=== PATIENT | female | born 2000 | race Caucasian/White ===

== ENCOUNTER 2022-03-23 09:13 | Day surgery (SDC) | payer MEDICAID, SELFPAY ==
[2022-03-23] VITALS (11 sets, daily range): BP systolic 103–157; BP diastolic 65–90; PULSE 55–87; RESP 16–18; TEMP 35.8–36.8; O2SAT 93–99; BMI 49.3
--- NOTE | 2022-03-23 09:26 | CT_ITS ---
STUDY: CT ABDOMEN AND PELVIS WITH CONTRAST REASON FOR EXAM: Female, 21 years old. RLQ abdominal pain RADIATION DOSAGE (If Supplied By Facility): CTDIvol = ( 34.97 ) mGy, DLP = ( 2038.68 ) mGycm TECHNIQUE: Transaxial images were obtained from the dome of the diaphragm to the symphysis pubis without oral contrast. IV 100mL Isovue-300 was administered. Sagittal and coronal images were reconstructed. Individualized dose optimization techniques were used for this CT. COMPARISON: None. FINDINGS: The visualized lung bases are unremarkable. The visualized portions of the heart are within normal limits. Normal liver. There is a solitary gallstone. Normal spleen. Normal pancreas. Normal bilateral adrenal glands. Normal right kidney. Normal left kidney. There is a small hiatal hernia. Normal small intestine. Normal colon. There is a tubular, thick-walled appendix (>7mm), consistent with acute appendicitis. Normal abdominal aorta. Normal inferior vena cava. Normal retroperitoneum. Normal urinary bladder. There is a small umbilical hernia containing fat. Normal osseous structures. CT/Abdomen/Pelvis W IV Cont ONLY IMPRESSION: Thickened appendix with increased markings in the surrounding peritoneal fat in keeping with acute noncomplicated appendicitis. Small solitary gallstone. Small umbilical hernia. Electronically Signed: Margarito Blanco MD at 11:22 EST ,
--- NOTE | 2022-03-23 09:27 | EDS_ITS ---
HPI HPI - GI History of Present Illness Chief Complaint: Abd Pain Narrative Narrative: 20-year-old female presenting with right lower quadrant abdominal pain and periumbilical abdominal pain which started this morning at about 2 AM. She has had some nausea but has not vomited. She also admits to some diarrhea. She has not had a fever. Denies urinary complaints or vaginal complaints. No history of kidney stones or ovarian cysts. She states the pain is increasing and describes it as a sharp/achy pain. Patient was seen in urgent care and referred to the ER for concern for appendicitis. Patient reports no abdominal surgeries previously. She reports no medication allergies.. She has low suspicion for as she is on the Depo-Provera shot. PFSH PFSH Medical History no medical history Home Medications NK 03/23/22 [History Last Taken Unknown] Allergy/AdvReac Type Severity Reaction Status Date / Time No Known Allergies Allergy Verified 03/23/22 09:13 Surgical History no surgical history Social History Smoking Status: Never smoker ROS ROS ED Constitutional Constitutional ED: Denies chills, fever(s) or sweats Eyes Eyes: Denies blurry vision or change in vision ENT ENT ED: Denies ear pain or sore throat Cardiovascular Cardiovascular: Denies chest pain, palpitations or racing heartbeat Respiratory/Chest Respiratory/Chest: Denies cough, dyspnea or sputum Gastrointestinal Gastrointestinal: Reports abdominal pain, diarrhea and nausea; Denies constipation or vomiting Genitourinary Genitourinary ED: Denies dysuria, hematuria or urinary frequency Musculoskeletal Musculoskeletal: Denies arthralgias, myalgias or neck pain Integumentary Denies abscess, Abrasions or rash Neurologic Neurologic: Denies headache(s), paresthesias or weakness Psychiatric Psychiatric: Denies anxiety, depression, suicidal ideation or suicidal thoughts Endocrine Endocrinology: Denies polydipsia or polyuria EXAM Physical Exam Const Vital Signs: 03/23/22 09:14 03/23/22 11:24 Temperature 96.5 F L Temperature Source Temporal Pulse Rate 74 84 Respiratory Rate 18 18 Blood Pressure 129/77 H 126/80 H Blood Pressure Mean 94 95 Pulse Ox 99 99 Oxygen Delivery Method Room Air Positive well nourished General Appearance ED: NAD; Negative for pallor HEENT Reports moist mucous membranes normocephalic Eyes PERRL and EOMs intact bilaterally General Eye ED: Negative for pale conjunctiva or scleral icterus Neck no lymphadenopathy Resp normal respiratory effort and clear to auscultation bilaterally Effort and Inspection: Negative for respiratory distress Cardio regular rate and regular rhythm GI Palpation: tender RLQ and Rovsing's sign Back/Spine no CVA tenderness Neuro CN's II-XII intact bilaterally Sensorium / Orientation: alert, oriented to person, oriented to place and oriented to time Motor Exam: strength 5/5 throughout Psych mental status grossly normal Skin no wounds General Skin Exam: Negative for jaundice or pallor MDM MDM MDM Narrative Medical decision making narrative: Patient seen and evaluated on arrival. Vital signs are stable and she is afebrile. She states has had worsening periumbilical and right lower quadrant pain since about 2 AM this morning. She is nauseous without vomiting. Patient reports she was at the urgent care prior to coming to the emergency room. On arrival she does have McBurney point tenderness. She also has a Rovsing. A line was established and patient was given morphine 4 mg and Zofran 4 mg. CBC was obtained to assess white blood cell count and differential. This does show a leukocytosis of 13.4. There is also a slight left shift. Platelets normal at 328. Hemoglobin is normal at 12.1. CMP was obtained to assess liver function, renal function, electrolytes. These all appear to be normal. Urinalysis obtained to assess for occult blood or infection is negative for any other. Urine test is also negative l. Given concern for appendicitis CT of the abdomen pelvis was ordered with IV contrast which shows acute uncomplicated appendicitis. On reevaluation the patient is still complaining of pain and she was given 0.5 mg of Dilaudid and she was given a liter of normal saline. Patient kept NPO. Patient was discussed with Dr. Solomon who is on-call for general surgery. Patient transported to the OR in stable condition. Impression: 1. Acute appendicitis 2. Nausea 3. Leukocytosis Lab Data Attestation: I reviewed the patient's lab results. Labs: Laboratory Results - last 24 hr 03/23/22 03/23/22 03/23/22 09:20 09:20 10:00 WBC 13.4 H RBC 4.51 Hgb 12.1 Hct 39.5 MCV 87.6 MCH 26.8 L MCHC 30.6 L RDW Std Deviation 47.4 H RDW Coeff of Mckayla 14.7 H Plt Count 328 MPV 10.0 Immature Gran % (Auto) 0.500 Neut % (Auto) 79.0 H Lymph % (Auto) 12.6 L [place] % (Auto) 6.4 Eos % (Auto) 1.0 Baso % (Auto) 0.5 Absolute Neuts (auto) 10.6 H Absolute Lymphs (auto) 1.70 Nucleated RBC % 0 Sodium 139 Potassium 4.2 Chloride 108 H Carbon Dioxide 25.0 Anion Gap 6 BUN 12 Creatinine 0.67 Estim Creat Clear Calc 126.99 Est GFR (MDRD) Af Amer 140 Est GFR (MDRD) Non-Af 115 BUN/Creatinine Ratio 17.9 Glucose 105 Calcium 8.4 L Total Bilirubin 0.50 AST 23 ALT 24 Alkaline Phosphatase 66 Total Protein 7.1 Albumin 3.4 Globulin 3.7 Albumin/Globulin Ratio 0.9 Urine Color Yellow Urine Clarity Sl. Cloudy Urine pH 6.0 Ur Specific [place] 1.020 Urine Protein Negative Urine Glucose (UA) Normal Urine Ketones Negative Urine Occult Blood Negative Urine Nitrite Negative Urine Bilirubin Negative Urine Urobilinogen Normal Ur Leukocyte Esterase Negative Urine RBC 0 SEEN Urine WBC 0 SEEN Ur Squamous Epith Cells 0-5 SEEN Urine Bacteria 0 SEEN Urine Mucus 0 SEEN Urine Test Negative Radiography Diagnostic Testing: Clinical Impression(s) from Imaging Studies Abdomen/Pelvis CT 03/23/22 09:26 IMPRESSION: Thickened appendix with increased markings in the surrounding peritoneal fat in keeping with acute noncomplicated appendicitis. Small solitary gallstone. Small umbilical hernia. Electronically Signed: Margarito Blanco MD at 11:22 EST , Discharge Plan Triage Chief Complaint: Abd Pain ED Provider: Jason Molina Dx/Rx/DC Orders Prescriptions: No Action NK Primary Care Provider: Care Physician,No Primary Referrals: Care Physician,No Primary [Primary Care Provider] -
[2022-03-23] MEDS: Ondansetron 4 MG/2 ML Vial IV (09:38)
[2022-03-23] MEDS: Morphine 4 MG/ML Syringe IV (09:39)
[2022-03-23 09:46] LABS: Absolute Neutrophil Count 10.6 X10^3/uL (2.0-7.7); Basophil# 0.07 X10^3/uL; Basophil% 0.5 % (0-1); Eosinophil# 0.13 X10^3/uL; Hematocrit 39.5 % (37-47); Hemoglobin 12.1 g/dL (12.0-15.0); Lymphocyte % 12.6 % (19-41); Mean Corp Hgb Conc 30.6 g/dL (32-36); Mean Corpuscular Hgb 26.8 pg (27.0-32.0); Mean Corpuscular Volume 87.6 fL (81-99); Monocyte# 0.86 X10^3/uL; Monocyte% 6.4 % (0-10); NRBC Flagged by Analyzer 0 % (0-5); Neutrophil # 10.61 X10^3/uL (2.7-7.7); Platelet Count 328 K/mm3 (150-450); RBC Distribution Width CV 14.7 % (11.6-14.6); RBC Distribution Width SD 47.4 fl (35.1-43.9); Red Blood Count 4.51 M/mm3 (4.2-5.4); White Blood Count 13.4 K/mm3 (4.4-11.0)
[2022-03-23 09:59] LABS: ALB/GLOB Ratio 0.9 RATIO (0.9-2.4); AST(SGOT) 23 U/L (15-37); Alanine Aminotransfer ALT/SGPT 24 U/L (13-56); Albumin, Serum 3.4 g/dL (3.2-5.0); Alkaline Phosphatase 66 U/L (45-117); Anion Gap 6 (5-15); BUN 12 mg/dL (7-18); BUN/Creat Ratio 17.9 RATIO (10-20); Calcium,Total 8.4 mg/dL (8.5-10.1); Chloride 108 mmol/L (98-107); Creatinine, Serum 0.67 mg/dL (0.55-1.02); EST Glomerular Filtration Rate 115 mL/min (>60); Est Glom Filt Rate - Afr Amer 140 mL/min (>60); Estimated Creatinine Clearance 126.99 ml/min; Globulin 3.7 g/dL (2.2-4.2); Glucose 105 mg/dL (74-106); Potassium 4.2 mmol/L (3.5-5.1); Protein, Total 7.1 g/dL (6.4-8.2); Sodium Level 139 mmol/L (136-145)
[2022-03-23 10:07] LABS: Bacteria 0 SEEN /hpf (None Seen); Mucous, Urine 0 SEEN /hpf (<or=2+); Red Blood Cells-Urine 0 SEEN /hpf (0-5); White Blood Cells 0 SEEN /hpf (0-5)
[2022-03-23 10:22] LABS: Color, Urine Yellow (Yellow); Glucose, Dipstick Normal (Normal); Ketone-Dipstick Negative (Negative); Leukocyte Esterase-Dipstick Negative /ul (Negative); Nitrite-Dipstick Negative (Negative); Occult Blood-Urine Negative /ul (Negative); Protein-Dipstick Negative (Negative); Urine Bilirubin Dipstick Negative (Negative); Urine Clarity Sl. Cloudy (Clear); Urine Urobilinogen Normal (Normal)
[2022-03-23 10:33] LABS: Internal QC Validated? YES +Cl - CLEAR BKGD; Pregnancy, Urine Negative Negative; Squamous Epithelial Cells - UA 0-5 SEEN /hpf (5-10)
[2022-03-23] MEDS: 0.9% Normal Saline 1,000 ML 999 ML IV (12:01)
[2022-03-23] MEDS: HYDROmorphone 0.5 MG/0.5 ML SYRINGE IV (12:01)
--- NOTE | 2022-03-23 12:51 | EX.PCM.CON.S ---
Assessment & Plan Assessment/Plan (1) Acute appendicitis: PLAN: Did discuss the anatomy and procedure: laparoscopic appendectomy, possible open with the patient. Including risks, but not limited to, bleeding, infection (superficial or intraabdominal), injury to another organ (small bowel, colon, ureter, etc.) requiring additional procedures, and blood clots. Also, discussed the pre-op, colon prep and antibiotics. All questions were answered. HPI Consult Data Date of Consult: 03/23/22 HPI Narrative HPI Narrative: JUSTINO PATTERSON, is a 21 F who presenting with right lower quadrant abdominal pain and periumbilical abdominal pain which started this morning at about 2 AM.? She has had some nausea but has not vomited.? She also admits to some diarrhea.? She has not had a fever.? Denies urinary complaints or vaginal complaints.? No history of kidney stones or ovarian cysts.? She states the pain is increasing and describes it as a sharp/achy pain.? Patient was seen in urgent care and referred to the ER for concern for appendicitis.? Patient reports no abdominal surgeries previously.? She reports no medication allergies..? She has low suspicion for as she is on the Depo-Provera shot. CT scan of the abdomen did show acute appendicitis. [facility] Medical History ADHD Post depression Medical History no medical history Home Medications NK 03/23/22 [History Last Taken Unknown] Allergy/AdvReac Type Severity Reaction Status Date / Time No Known Allergies Allergy Verified 03/23/22 09:13 Surgical History History of tonsillectomy Surgical History no surgical history Social History Smoking Status: Never smoker ROS ENT HEENT: Denies abnormal hearing Cardiovascular Cardiovascular: Denies chest pain Respiratory/Chest Respiratory/Chest: Denies cough or dyspnea Gastrointestinal Gastrointestinal: Reports abdominal pain Physical Exam Const alert, oriented x3 and no apparent distress HEENT normocephalic and head/scalp atraumatic Eyes PERRL and EOMs intact bilaterally Resp clear to auscultation bilaterally Cardio Rate: regular rate Rhythm: regular rhythm GI soft to palpation Palpation: tender RLQ and McBurney's point; Negative for guarding Lab / Micro Data Result Diagrams: 03/23/22 09:20 03/23/22 09:20 Labs: Laboratory Results - last 24 hr 03/23/22 09:20: WBC 13.4 H, RBC 4.51, Hgb 12.1, Hct 39.5, MCV 87.6, MCH 26.8 L, MCHC 30.6 L, RDW Std Deviation 47.4 H, RDW Coeff of Mckayla 14.7 H, Plt Count 328, MPV 10.0, Immature Gran % (Auto) 0.500, Neut % (Auto) 79.0 H, Lymph % (Auto) 12.6 L, [place] % (Auto) 6.4, Eos % (Auto) 1.0, Baso % (Auto) 0.5, Absolute Neuts (auto) 10.6 H, Absolute Lymphs (auto) 1.70, Nucleated RBC % 0 03/23/22 09:20: Sodium 139, Potassium 4.2, Chloride 108 H, Carbon Dioxide 25.0, Anion Gap 6, BUN 12, Creatinine 0.67, Estim Creat Clear Calc 126.99, Est GFR (MDRD) Af Amer 140, Est GFR (MDRD) Non-Af 115, BUN/Creatinine Ratio 17.9, Glucose 105, Calcium 8.4 L, Total Bilirubin 0.50, AST 23, ALT 24, Alkaline Phosphatase 66, Total Protein 7.1, Albumin 3.4, Globulin 3.7, Albumin/Globulin Ratio 0.9 03/23/22 10:00: Urine Color Yellow, Urine Clarity Sl. Cloudy, Urine pH 6.0, Ur Specific [place] 1.020, Urine Protein Negative, Urine Glucose (UA) Normal, Urine Ketones Negative, Urine Occult Blood Negative, Urine Nitrite Negative, Urine Bilirubin Negative, Urine Urobilinogen Normal, Ur Leukocyte Esterase Negative, Urine RBC 0 SEEN, Urine WBC 0 SEEN, Ur Squamous Epith Cells 0-5 SEEN, Urine Bacteria 0 SEEN, Urine Mucus 0 SEEN, Urine Test Negative Radiology Impression Abdomen/Pelvis CT 03/23/22 09:26 IMPRESSION: Thickened appendix with increased markings in the surrounding peritoneal fat in keeping with acute noncomplicated appendicitis. Small solitary gallstone. Small umbilical hernia. Electronically Signed: Margarito Blanco MD at 11:22 EST ,
--- NOTE | 2022-03-23 13:00 | APP_PTH ---
PATIENT: JUSTINO PATTERSON LOC: [facility] – [place] U#:[id number] AGE/SX: ROOM: RE03/23/[address]: Dr. Saurabh Solomon MD : 2000 BED: DIS: 03/23/2022 SPEC #: [id number] RECD: 03/23/22 14:25 STATUS: ERIN BLAKE #: [id number] VALERIA: 03/23/22 13:[address]: Saurabh Solomon DEPT: SURGICAL PATHOLOGY RECD BY: Mary Alcantara ENTERED: 03/24/22 10:04 SP TYPE: APPENDIX OT DR: No Primary Care Phys Tissues: Appendix, NOS Procedures: Surgery Specimen Level III HEADER OPERATION: Laparoscopic appendectomy PRE-OP DIAGNOSIS: Acute appendicitis TISSUE SUBMITTED: Appendix MICROSCOPIC DIAGNOSIS Appendix, appendectomy: Acute appendicitis. Acute serositis. AM:haim 03/25/2022 MICROSCOPIC DESCRIPTION Slides are reviewed. GROSS DESCRIPTION Received in fixative is one container labeled with the patient's name and designated appendix. The specimen consists of an appendix measuring 7.5 cm in length and up to 1 cm in diameter. The attached periappendiceal adipose tissue measures up to 3.5 cm in width. No obvious perforation is identified. The serosal surface is focally covered with galvez, purulent exudate. The mucosa is focally congested. No fecalith is identified. Corporate Development Officer sections are submitted in two cassettes. / SJ:haim 03/24/2022 TC:2 CPT: 47384
--- NOTE | 2022-03-23 13:40 | PCM.OPRPT ---
Problems Associated Problem List Diagnoses (1) Acute appendicitis: Report of Operation Date of Procedure: 03/23/22 Pre-Operative Diagnosis: Acute appendicitis Post-Operative Diagnosis: Same Surgery/Procedure Performed:: Laparoscopic appendectomy Surgeon: Saurabh Solomon interior plant caretaker: Giovani Medina Type of Anesthesia: General Anesthesiologist: Omi Hardin Specimen's removed: Appendix Drains: None Description of Procedure: Patient was brought into the operating room. Placed in the supine position. Under excellent general anesthetic the abdomen was sterilely prepped and draped in usual fashion. Local was injected infraumbilically. Dissection was carried down to the fascia. Fascia was grasped with a [place]. Varies needle was placed inside the abdomen. The abdomen was insufflated to 15 torr. A 10/12 trocar was placed without difficulty. Patient was placed in the headdown and rotated to the left position suprapubic #5 trocar was placed in the left lower quadrant #5 trochars placed both of these under direct visualization without injury to underlying structures. Patient was noted to have acute appendicitis the tip of the appendix was in the right lower quadrant attached to the abdominal wall this came down easily I came down the mesoappendix with the Enseal. I then transected the base of the appendix with a 45 linear cutter. I had excellent hemostasis. Placed the specimen in a specimen bag delivered through the umbilical port without difficulty. There was no pus in the abdomen I ran the small bowel looking for a Meckel's diverticulum I did not see any I remove the trochars under direct visualization good with stasis was noted. I closed the fascia the umbilical port with a [id number] stitch of 0 Vicryl. More local was injected into the fascia. Skin incisions were closed with subcuticular stitches of 4-0 Monocryl. Steri-Strips were applied. Sterile dressings were applied. Patient tolerated the procedure well. Admit VTE Documentation VTE Present on Admission: No VTE Mechan Device Prophylaxis: SCD's VTE Pharm Prophylaxis ordered?: No Reason prophylaxis not ordered:: Treatment Not Indicated
[2022-03-23] MEDS: Bupivacaine Mpf 0.5% 30 ML VIAL (13:45)
--- NOTE | 2022-03-23 13:46 | DCINST_ITS ---
Discharge Instructions Procedure Appendectomy Diet Discharge Diet: Light diet - advance as tolerated (if you have questions about your diet instructions, please talk to you doctor.) Activity Discharge Activity: May Not Drive (for 3-5 days or while taking narcotic pain meds.) May shower in (days): 1 Dressing / Incision Call your doctor if your incision/area has: Continuous Slow Oozing, Sudden Increased Bleeding, Increased Pain/ Swelling, Increased Redness and Foul Smelling Discharge Call your doctor if you observe: Fever of 101 or Higher Suture Line Care: Avoid Pulling/Pushing and Avoid Pinching/Bending Additional Dressing/Incision Instructions:: Keep dressing clean and dry. Change or remove dressing in 2 days. Leave steri strips for 1 week. May protect with a gauze bandaid. Follow Up Care Please Follow Up With: Radha Hilario PA-C When: Call office to schedule an appointment to be seen in 1 week. Test Results: Test results from this visit will be discussed in further detail at your follow- up appointment, if applicable. Discharge Plan Admission Attending Provider: Saurabh Solomon Primary Care Provider: Care Physician,Brenda Primary Discharge Orders/Prescriptions Prescriptions: New oxycodone-acetaminophen [Endocet] 5-325 mg tablet 1 tab PO Q4H PRN (Reason: pain) 5 Days Qty: 20 0RF Referrals / Follow Up: Care Physician,Brenda Primary [Primary Care Provider] - Radha Hilario PA-C [Med Staff - [facility]] - Disposition Disposition (needs filled in before D/C Order can be placed): Home, Self Care
--- NOTE | 2022-03-23 16:10 | SUR.PHASEII ---
PT VOIDED WITH OUT ISSUES.
--- NOTE | 2022-03-23 16:14 | SUR.PHASEII ---
Paged Dr. Solomon to ask how long pt needs to be off work and if she can have a pain pill.
--- NOTE | 2022-03-23 16:38 | SUR.PHASEII ---
order given by dr. lambert for oxyir 10 mg x1 dose. pt to be off work until follow up.
[2022-03-23] MEDS: oxyCODONE 5 MG Tablet 10 MG PO (16:45)
== END 2022-03-23 17:35 | disposition home or self-care (01) ==
LOC: ED 12:07 → SDC 12:23 → ACINP 12:24 → AC 12:45
PROVIDERS: Emergency Provider Student in an Organized Health Care Education/Training Program; Visit Provider Surgery
PROC: 0DTJ4ZZ Resection of Appendix, Percutaneous Endoscopic Approach (ICD-10-PCS; CPT 44970; principal; 2022-03-23 12:40)
DX: K35.80 Unspecified acute appendicitis (principal); R19.7 Diarrhea, unspecified; R10.33 Periumbilical pain
CPT/HCPCS: 44970; 00840; 74177; 80053; 81001; 81025; 85025; 88304; 99283; J7030; Q9967; A4216; C1760; J2405

== ENCOUNTER 2025-02-01 12:06 | Emergency (ER) | payer MEDICAID, SELFPAY ==
[2025-02-01 12:07] VITALS: BP 135/101; PULSE 97; RESP 22; TEMP 37.1; O2SAT 100; BMI 49.1
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
--- OUTSIDE RECORDS SUMMARY | 2025-02-01 12:51 | XMS RPT_ITS | CCD ---
Author Organization [facility] Care Team Providers Care Cryptological Technician Name Role Phone Eugene Pires Primary Care Provider Unavailab le PHYSICIAN, NONE Primary Care Physician Unavailab SINGH Gutierrez Attending Unavailable PHYSICIAN, NONE Primary Care Unavailable JUAN RAMON BRADY Attending Unavailable PHYSICIAN, NONE Primary Care Unavailable Unavailable Primary Care Provider UnavailSaurabh Sandra Attending Unavailable Care Physician, No Primary Primary Care Unava ilable Eugene Pires DO Primary Care Provider Unavai Cassandra Perez DO Unavailable Aria Smith APRN, CNP Unavailable ARIA MOON Attending Unavailable CASSANDRA VOSS Attending Unavailable EUGENE PIRES Primary Care Unavailable CASSANDRA VOSS Attending Unavailable EUGENE PIRES Referring Unavailable EUGENE PIRES Primary Care Unavailable SARA LANDON Attending Unavail able SILVA CASTILLO Referring Unavailab EUGENE Gonzales Primary Care Unavailable Medications Current Medications Medication Drug Class(es) Dates Sig (Normalized) Sig (Original) acetaminophen 325 mg oral tablet (2 sources) Start: 12-11-2020 acetaminophen (TYLENOL) tablet 650 mg acetaminophen 325 mg / oxyCODONE hydrochloride 5 mg oral tablet (1 source) Opioid Agonist Start: 03-23-2022 take 1 tablet by mouth every four hours Oxycodone-Acetaminop hen (Endocet) 5-325 mg tablet Active 1 TABLET PO Q4H 20 March 23, 2022 amoxicillin 875 mg / clavulanate 125 mg oral tablet (1 source) Penicillin-class Antibacterial Start: 02-18-2022 End: 02-25-2022 take 1 tablet by mouth every twelve hours amoxicillin-clavulan ate 875 mg-125 mg oral tablet 1 tab(s), Oral, q12h, X 7 day(s), # 14 tab(s), 0 Refill(s), 02/25/22 0:07:00 EST, Viral pharyngitis, 135.9 Start Date: 02/18/22 Stop Date: 02/25/22 Status: Ordered benzethonium chloride 2 mg/ml / benzocaine 200 mg/ml topical spray (1 source) Standardized Chemical Allergen Start: 12-11-2020 benzocaine-benzethon ium (DERMOPLAST) 20-0.2 % spray 1 ml diphenhydrAMINE hydrochloride 50 mg/ml cartridge (2 sources) Histamine-1 Receptor Antagonist Start: 12-13-2020 diphenhydrAMINE (BENADRYL) injection 25 mg Start: 12-13-2020 diphenhydrAMIN E (BENADRYL) injection 12.5 mg docusate sodium 100 mg oral capsule (1 source) Start: 12-13-2020 docusate sodium (COLACE) capsule 100 mg ferrous sulfate 325 mg oral tablet (1 source) Start: 12-13-2020 ferrous sulfate (IRON 325) tablet 325 mg HYDROmorphone (DILAUDID) injection 0.25 mg (1 source) Start: 12-13-2020 HYDROmorphone (DILAUDID) injection 0.25 mg ibuprofen 600 mg oral tablet (6 sources) Nonsteroidal Anti-inflammatory Drug Start: 11-12-2018 End: 12-16-2020 take 1 tablet by mouth every six hours as needed for pain ibuprofen (ADVIL;MOTRIN) 600 MG tablet Take 1 tablet by mouth every 6 hours as needed for Pain 120 tablet 3 12/16/2020 Active lanolin 1000 mg/ml topical cream (1 source) Start: 12-13-2020 lansinoh lanolin ointment lisdexamfetamine dimesylate 30 mg oral capsule (3 sources) Central Nervous System Stimulant Start: 03-26-2018 take 1 capsule by mouth once daily in the morning lisdexamfetamine (VYVANSE) 30 MG capsule Indications: Attention deficit hyperactivity disorder (ADHD), unspecified ADHD type Take 1 capsule by mouth every morning for 30 days.. Earliest Fill Date: 03/26/18 30 capsule 0 03/26/2018 Active 1 ml nalbuphine hydrochloride 10 mg/ml injection (1 source) Opioid Agonist/Antagonis t Start: 12-13-2020 nalbuphine (NUBAIN) injection 5 mg 1 ml naloxone hydrochloride 0.4 mg/ml injection (1 source) Opioid Antagonist Start: 12-13-2020 naloxone (NARCAN) injection 0.4 mg 2 ml ondansetron 2 mg/ml injection (2 sources) Serotonin-3 Receptor Antagonist Start: 12-11-2020 ondansetron (ZOFRAN) injection 4 mg oxyCODONE hydrochloride 5 mg oral tablet (2 sources) Opioid Agonist Start: 12-16-2020 End: 12-23-2020 take 1 tablet by mouth every six hours as needed for pain oxyCODONE (ROXICODONE) 5 MG immediate release tablet Indications: S/P section Take 1 tablet by mouth every 6 hours as needed for Pain for up to 7 days. 20 tablet 0 12/16/2020 12/23/2020 Active Start: 12-13-2020 oxyCODONE (GIFTY ICODONE) immediate release tablet 5 mg oxytocin (PITOCIN) 10 unit b olus from the bag (2 sources) Start: 12-13-2020 oxytocin (JERZY STERLING) 10 unit bolus from the bag Start: 12-13-2020 oxytocin (JERZY STERLING) 10 unit bolus from the bag oxytocin (PITOCIN) 30 units in 500 mL infusion (1 source) Start: 12-11-2020 oxytocin (JERZY STERLING) 30 units in 500 mL infusion vitamin 27-1 MG tab let 1 tablet (1 source) Start: 12-13-2020 vitam in 27-1 MG tablet 1 tablet simethicone 80 mg chewable tablet (1 source) Start: 12-13-2020 simethicone (M YLICON) chewable tablet 80 mg Completed/Discontinued Medications Medication Drug Class(es) Dates Sig (Normalized) Sig (Original) calcium chloride 0.0014 meq/ml / potassium chloride 0.004 meq/ml / sodium chloride 0.103 meq/ml / sodium lactate 0.028 meq/ml injectable solution (4 sources) Start: 12-11-2020 End: 12-14-2020 lactated ringers infusion cefOXitin (MEFOXIN) 3,000 mg in dextrose 5 % 50 mL IVPB (1 source) Start: 12-13-2020 End: 12-13-2020 cefOXitin (MEFOXIN) 3,000 mg in dextrose 5 % 50 mL IVPB citric acid 66.8 mg/ml / sodium citrate 100 mg/ml oral solution (1 source) Calculi Dissolution Agent, Anti-coagulant Start: 12-13-2020 End: 12-13-2020 citric acid-sodium citrate (BICITRA) solution 30 mL Start: 12-13-2020 End: 12-13-2020 citric acid-sodium citrate ( BICITRA) solution 30 mL ethinyl estradiol 0.035 mg / norgestimate 0.25 mg oral tablet (3 sources) Progestin, Estrogen Start: 07-06-2017 End: 12-16-2020 take 1 tablet by mouth once daily, then take 0.25-35 tablets by mouth once norgestimate-ethinyl estradiol (ORTHO-CYCLEN) 0.25-35 MG-MCG per tablet Indications: Family planning Take 1 tablet by mouth daily 1 packet 6 07/06/2017 12/16/2020 Discontinued (Stop Taking at Discharge) 1 ml ketorolac tromethamine 30 mg/ml cartridge (2 sources) Nonsteroidal Anti-inflammatory Drug, Cyclooxygenase Inhibitor Start: 12-13-2020 End: 12-14-2020 ketorolac (TORADOL) injection 30 mg medroxyPROGESTERone (2 sources) Progestin medroxyprogester one acetate (DEPO-PROVERA INTRAMUSC.) Inject intramuscularly. 0 Active Comment on above: Inject intramuscular ly. miSOPROStol (CYTOTEC) pre-split tablet TABS 25 mcg (2 sources) Start: 12-12-2020 End: 12-12-2020 miSOPROStol (CYTOTEC) pre-split tablet TABS 25 mcg Start: 12-11-2020 End: 12-12-2020 miSOPROStol (CYTOTEC) pre-sp lit tablet TABS 25 mcg 3 ml sodium chloride 9 mg/ml injection (8 sources) Start: 12-11-2020 0.9 % sodium c hloride infusion Start: 12-11-2020 End: 12-15-2020 sodium chloride flush 0.9 % injection 5-40 mL Problems Active Problems Problem Classification Problem Date Documented Date Episodic/Chronic Abdominal pain (1 source) Right lower quadrant pain; Translations: [Right lower quadrant pain] Episodic Anxiety disorders (17 sources) Anxiety; Translations: [Anxiety disorder, unspecified] Onset: 08-19-2015 08-19-2015 Chronic Appendicitis and other appendiceal conditions (2 sources) Acute appendicitis; Translations: [Unspecified acute appendicitis] 03-23-2022 Episodic Attention-deficit conduct and disruptive behavior disorders (17 sources) Attention deficit hyperactivity disorder; Translations: [Attention-deficit hyperactivity disorder, unspecified type] Onset: 11-19-2016 11-19-2016 Chronic Esophageal disorders (3 sources) Gastroesophageal reflux disease without esophagitis; Translations: [Gastro-esophageal reflux disease without esophagitis] 06-06-2024 Chronic Nausea and vomiting (1 source) Nausea; Translations: [Nausea] Onset: 03-25-2022 Episodic Other aftercare (1 source) Follow-up status; Translations: [Encounter for other specified aftercare] Episodic Other complications of (16 sources) Maternal obesity complicating , childbirth and the puerperium, antepartum; Translations: [Obesity complicating , third trimester] Onset: 12-11-2020 Chronic Other nutritional; endocrine; and metabolic disorders (20 sources) Morbid obesity; Translations: [Morbid (severe) obesity due to excess calories] Onset: 09-11-2016 09-11-2016 Chronic Other nutritional; endocrine; and metabolic disorders (20 sources) Body mass index 40+ - severely obese; Translations: [Morbid (severe) obesity due to excess calories] 02-07-2024 Chronic Other nutritional; endocrine; and metabolic disorders (2 sources) Body mass index (BMI) 50.0-59.9, adult; Translations: [Body mass index (BMI) 50.0-59.9, adult (HCC)] Onset: 2024 Chronic Other nutritional; endocrine; and metabolic disorders (2 sources) Morbid (severe) obesity due to excess calories; Translations: [Morbid (severe) obesity due to excess calories (HCC)] Onset: 02-07-2024 Chronic Other nutritional; endocrine; and metabolic disorders (2 sources) Weight loss; Translations: [Weight Loss] Onset: 06-06-2024 Episodic Other upper respiratory infections (1 source) Acute pharyngitis; Translations: [Acute pharyngitis due to other specified organisms] Onset: 02-17-2022 Episodic Residual codes; unclassified (3 sources) Tobacco user; Translations: [Tobacco use] 06-06-2024 Episodic Substance-related disorders (2 sources) Nicotine dependence, cigarettes, in remission; Translations: [Nicotine dependence, cigarettes, in remission] Onset: 05-24-2024 Chronic Unclassified (1 source) Sprain of left ankle; Translations: [Sprain of left ankle, unspecified ligament, initial encounter] Past or Other Problems Problem Classification Problem Date Documented Da te Episodic/Chronic Other lower respiratory disease (17 sources) Snoring; Translations: [Snoring] Onset: 04-19-2013 09-11-2016 Episodic Other and delivery including normal (16 sources) Patient encounter status; Translations: [Encounter for supervision of normal , unspecified, unspecified trimester] Onset: 12-11-2020 Episodic Other skin disorders (17 sources) Acquired acanthosis nigricans; Translations: [Acanthosis nigricans] Onset: 04-19-2013 11-19-2016 Episodic Prolonged (20 sources) Post-term - not delivered; Translations: [Post-term ] Onset: 12-11-2020 Episodic Residual codes; unclassified (17 sources) Increased body mass index; Translations: [Other symptoms and signs concerning food and fluid intake] Onset: 04-19-2013 09-11-2016 Episodic Substance-related disorders (2 sources) Cannabis use, unspecified, uncomplicated; Translations: [Cannabis use, unspecified, uncomplicated] Onset: 05-24-2024 Episodic Results Test Name Value Interpretation Reference Range Facility 36on 09-01-2024 36 Hi! I am happy to see her, but will forward to surgical MATT/Management to determine if program hold is appropriate. Thank you! [facility] 36 Thanks Silva! Forwarding to [place]/Alex so they can check with Aria and see if she should be rescheduled or on a 6M/1Yr hold. [facility] 36 MP Pt called and left message that was very broken and difficult to understand. Was able to make out something about broken phone and that she was to have appt today at 8:30 but was told it was on the 24th. Pt asking for call back. Noted that pt did have appt that she was a no show for, the last two times. Will route to [facility] to contact pt and address. [facility] Office Visiton 06-06-2024 Follow-up visit [id number] Michoacano Wilson 2000 F Date Provider Department Center 06/06/2024 [id number] MOON MD None Family History Problem Relation Age of Onset Learning disabilities Mother High Blood Pressure Mother Substance Abuse Mother Depression Mother Other Mother Comments: ADD Arthritis Mother Breast cancer Mother Other Father Comments: ADHA Arthritis Father High Blood Pressure Father Learning disabilities Father Obesity Father Family Status - Relation Status Age at Mother Alive Father Alive Level of Service:90222 [place] OFFICE/OUTPATIENT NEW MODERATE MDM 45 MINUTES Reason for Visit and Comments: Weight Loss [873982] - D/E 03/13 [facility] Progress Noteon 06-06-2024 Progress Note [facility] SURGICAL WEIGHT LOSS MANAGEMENT PROGRAM SUPERVISED DIET AND EXERCISE ROOMING: INITIAL VISIT Patient: Michoacano Wilson Date of : 2000 Service Date: 06/06/2024 Patient is here today to initiate physician-supervise d diet and exercise as required by their insurance company prior to approval for weight loss surgery. This patient is alone for the evaluation today This is visit 1 of 6 required visits. Weight Metrics: (From Surgical Weight Loss Management) Today's Vital Signs: Non-Surgical Initial Eval Consult Date: 06/06/24 Initial Height: 5' 6 (167.6 cm) Initial Weight: 324 lb 9.6 oz (147 kg) Savage Body Weight: 137 lb (62.1 kg) Initial BMI: 52.39 Initial Body Fat %: 62.87 EBW: 187 lb (From NonSurgical Weight Loss Tracker) Falls Risk Assessment Patient does not take medications which affect BP or mental status Patient does not have newly prescribed or changed dosage of medications within past 30 days which affect BP or mental status Patient has not fallen in the past 2 months Patient uses the following ambulatory assistive devices: none Patient states the presence of the following traits which increases risk of fall: none Patient is noton home O2 Have you received packet of information by mail from our office which includes: Surgical Checklist, lab orders & referral information? No Completed by: Jhonny Simpson MA [facility] Progress Note [facility] SURGICAL WEIGHT LOSS MANAGEMENT PROGRAM PHYSICIAN SUPERVISED DIET AND EXERCISE SURGICAL PREPARATORY REGIMEN PROGRESS NOTE INITIAL EVALUATION Patient: Michoacano Wilson Service Date: @TODAY@ Date of : 2000 Navigation Plan: Patient History/Assessment Summary: The patient is a pleasant 24 y.o. year old female, who stands Height: 5' 6 (167.6 cm) tall with a weight of Weight: (!) 324 lb 9.6 oz (147 kg) pounds, resulting in a BMI of Body mass index is 52.39 kg/m?. kg/m2. She has been overweight for years, has tried and failed multiple previous diet attempts, and is now in the process of undergoing evaluation for surgical treatment of their obesity and related comorbidities, including GERD and Obesity. She is here today to initiate monthly physician supervised diet and exercise as part of their surgical preparatory regimen. History: Past Medical History: Diagnosis Date ADHD (attention deficit hyperactivity disorder) Anxiety panic attacks Depression Morbid obesity, unspecified obesity type (HCC) 02/02/2024 Obesity Snoring Past Surgical History: Procedure Laterality Date APPENDECTOMY 2022 SECTION, CLASSIC 2020 TONSILLECTOMY AND ADENOIDECTOMY (HISTORICAL) Family History Problem Relation Name Age of Onset Learning disabilities Mother High Blood Pressure Mother Substance Abuse Mother Depression Mother Other ([id number]) Mother ADD Arthritis Mother Breast cancer Mother Other ([id number]) Father ADHA Arthritis Father High Blood Pressure Father Learning disabilities Father Obesity Father Social History Tobacco Use Smoking status: Some Days Current packs/day: 0.50 Average packs/day: 0.5 packs/day for 2.2 years (1.1 ttl pk-yrs) Types: Cigarettes Start date: 2022 Smokeless tobacco: Never Substance Use Topics Alcohol use: Yes Alcohol/week: 1.0 standard drink of alcohol Types: 1 Standard drinks or equivalent per week Initial Diet & Exercise/SPR Visit Weight Metrics: Date of Initial Diet & Exercise Visit: Consult Date: 06/06/24 Initial Weight: Initial Weight: 324 lb 9.6 oz (147 kg) Initial BMI: Initial BMI: 52.39 Savage Body Weight: Savage Body Weight: 137 lb (62.1 kg) Excess Body Weight: EBW: 187 lb General: This patient is alert. Physical Examination: BP (!) 114/94 Pulse 88 Ht 5' 6 (1.676 m) Wt (!) 324 lb 9.6 oz (147 kg) BMI 52.39 kg/m? General: This patient is obese and is in no apparent distress. Cardiac: Regular rate and rhythm without evidence of murmur Respiratory: Clear to auscultation bilaterally; No evidence of respiratory distress Head and Neck: Obese, normocephalic and atraumatic/soft and supple; no lymphadenopathy or obvious bruits; no thyromegaly. Musculoskeletal: No cyanosis, clubbing or edema/ No calf tenderness/No restrictions of movement, is ambulatory without assistance, no focal deficits noted. Current Diet This patient?s current diet is: high in sugar and high in simple carbohydrates Drinks water, diluted vitamin water Reviewed PAST DIET HISTORY FORM and CURRENT DIET HISTORY FORM with patient (located in [facility]) Her diet contains inadequate amounts of protein, inadequate amounts of healthy fats, inadequate amounts of green, leafy vegetables, and inadequate amounts of fruits. Her comfort foods include:sweets and pasta Current Activity This patient currently does not exercise. Current Eating Behaviors This patients demonstrates the following behaviors as they relate to her eating:eats large portions and eats at night She eats approximately 3-4 times per day. Her last meal/snack was at 7 pm. Plan: 1). GERD- Controlled with dietary modifications. 2). Morbid Obesity, BMI 51.37- Lengthy discussion re: eating for your metabolism by being mindful of timing of eating, high protein diet, pairing protein with complex carb at meals and snacks. Resources provided, questions addressed and answered. Patient is planning to undergo Bariatric surgery for weight reduction. 3). Tobacco Abuse, In Remission- Reports she has ceased all nicotine products since 03/2024. Advised to continue to abstain. Reviewed risks associated with nicotine use postoperatively. Advised patient that She must adhere to regular monthly visits to meet the requirements of her insurance company. Additionally, She must demonstrate meal plan adoption to show readiness for the changes that will be required following surgery. Physician Diet Recommendations provided to patient. Patient to return for follow up in one month. Current Meds Patient's Medications No medications on file [facility] 37on 05-24-2024 37 YOUR APPOINTMENT TODAY WAS WITH THE [facility] LUNG NODULE CLINIC, COPD CLINIC, PULMONARY AND SLEEP MEDICINE OFFICE. PLEASE CALL OUR OFFICE AT [phone] IF YOU HAVE NOT RECEIVED YOUR TEST RESULTS 7 DAYS AFTER TESTING IS COMPLETED. PLEASE REMEMBER TO REQUEST REFILLS AT YOUR OFFICE VISITS. PHONE/FAX REQUESTS REQUIRE 48-72 HOURS FOR RESPONSE. A FRIENDLY REMINDER COPAYS ARE DUE AT TIME OF SERVICE. THANK YOU. Our Patients Are Important! We want to improve and you can help. After your visit we want you to feel: Listened to, Respected and have your health care explained. You may receive a survey asking you about your visit. Please complete the survey. We will use your feedback to make improvements. COVID-19 VACCINATION INFORMATION: PH. [phone] [email or web address] [email or web address]/VACCINE [facility] Central Scheduling [phone] [facility] Sleep Scheduling [phone] [facility] Office Visiton 05-24-2024 Follow-up visit [id number] Michoacano Wilson 2000 F Date Provider Department Center 05/24/2024 [id number] LANDON *[facility] None Family History Problem Relation Age of Onset Learning disabilities Mother High Blood Pressure Mother Substance Abuse Mother Depression Mother Other Mother Comments: ADD Other Father Comments: ADHA Arthritis Mother Arthritis Father High Blood Pressure Father Learning disabilities Father Family Status - Relation Status Age at Mother Alive Father Alive Level of Service:82256 [place] OFFICE/OUTPATIENT NEW LOW MDM 30 MINUTES Reason for Visit and Comments: Weight Loss [[id number]] New Patient [[id number]] [facility] Progress Noteon 05-24-2024 Progress Note Visit type: New patient History of Present Illness: HPI History of Present Illness: Michoacano Wilson is a 24 y.o. female patient being seen for pre-operative pulmonary clearance. She was recently seen by Dr. Voss and plans to undergo Laparoscopic Sleeve Gastrectomy and Laparoscopic Liver Biopsy in the near future. She feels well today. Hx of underlying lung disease: none Respiratory symptoms: Denies shortness of breath, coughing or wheezing. Denies hx of seasonal allergies, but does sometimes sneeze when the weather changes. Tobacco use: Quit 3 months ago. Hx of 6-7 cigarettes/day x 8 years off and on. Hx of marijuana use, quit a few months. Does not have a medical marijuana card. Work hx: hx of work at [employer]. Known history of sleep apnea: none [place] Sleepiness Scale: 7 Sleep apnea symptoms: Bedtime - variable Wake time - 8-9 am. Sleep quality - feels that she sleeps well, feels rested in the morning. Snoring - yes, loudly Apneas witnessed- parents told her this in the past, but no one has told her this in a long time. Denies orthopnea, PND. AM headaches- none Daytime somnolence- sometimes Fatigue - sometimes STOPBang Questionnaire: SNORING: Do you snore loudly (loud enough to be heard through closed doors or your bed-partner elbows you for snoring at night)? yes TIRED: Do you often feel tired, fatigued or sleepy during the daytime (such as falling asleep during driving or talking to someone)? no OBSERVED: Has anyone observed you stop breathing or choking/gasping during your sleep? no PRESSURE: Do you have or are you being treated for high blood pressure? no BODY MASS INDEX >35: Body mass index is 51.37 kg/m?. yes AGE >50: 24 y.o. no NECK SIZE LARGE: (measured around the Sixto's apple) For male, is your shirt collar 17 inches or larger? For female, is your shirt collar 16 inches or larger? yes GENDER: Male no SCORE: 3-4 intermediate risk Score 1 point for each YES answer: Baseline Exercise tolerance/MMRC score( Bold ) MMRC Dyspnea Scale Grade Description of Breathlessness 0 I only get breathless with strenuous exercise. 1 I get short of breath when hurrying on level ground or walking up a slight hill. 2 On level ground, I walk slower than people of the same age because of breathlessness, or have to stop for breath when walking at my own pace. 3 I stop for breath after walking about 100 yards or after a few minutes on level ground. 4 I am too breathless to leave the house or I am breathless when dressing. Past Medical History: Past Medical History: Diagnosis Date ADHD (attention deficit hyperactivity disorder) Anxiety panic attacks Depression Morbid obesity, unspecified obesity type (HCC) 02/02/2024 Obesity Snoring Social History: Social History Socioeconomic History Marital status: Single Tobacco Use Smoking status: Every Day Current packs/day: 0.50 Average packs/day: 0.5 packs/day for 2.2 years (1.1 ttl pk-yrs) Types: Cigarettes Start date: 2022 Smokeless tobacco: Never Vaping Use Vaping status: Never Used Substance and Sexual Activity Alcohol use: Yes Alcohol/week: 1.0 standard drink of alcohol Types: 1 Standard drinks or equivalent per week Drug use: Yes Frequency: 3.0 times per week Types: Marijuana Comment: nothing for 2 months Sexual activity: Yes Partners: Male control/protection: None Family History: Family History Problem Relation Name Age of Onset Learning disabilities Mother High Blood Pressure Mother Substance Abuse Mother Depression Mother Other ([id number]) Mother ADD Other ([id number]) Father ADHA Arthritis Mother Arthritis Father High Blood Pressure Father Learning disabilities Father ROS: Review of Systems Constitutional: Negative for chills, fatigue and fever. Respiratory: Negative for cough, chest tightness, shortness of breath and wheezing. Cardiovascular: Negative for chest pain, palpitations and leg swelling. Gastrointestinal: Negative for diarrhea, nausea and vomiting. Psychiatric/Behavio ral: Negative for sleep disturbance. All other systems reviewed and are negative. Medications: @MEDCMED@ Allergies: No Known Allergies Vital Signs: BP 98/68 (BP Location: Left arm, Patient Position: Sitting, BP Cuff Size: Adult) Pulse 88 Ht 5' 7 (1.702 m) Wt (!) 328 lb (149 kg) SpO2 98% BMI 51.37 kg/m? Physical Exam: Physical Exam Constitutional: Appearance: Normal appearance. She is obese. HENT: Head: Normocephalic and atraumatic. Eyes: Extraocular Movements: Extraocular movements intact. Pupils: Pupils are equal, round, and reactive to light. Cardiovascular: Rate and Rhythm: Normal rate and regular rhythm. Heart sounds: Normal heart sounds. Pulmonary: Effort: Pulmonary effort is normal. No accessory muscle usage or prolonged expiration. Breath sounds: Normal breath sounds. No decreas (more content not included)... Normal [facility] Progress Noteon 2024 Progress Note [facility] BARIATRIC NUTRITION ASSESSMENT / DIET & EXERCISE SURGICAL WEIGHT LOSS MANAGEMENT PROGRAM Date: 05/09/24 Patient Name: Michoacano Wilson Date of : 2000 Type of Assessment: Surgical Patient - Pre-op Initial Assessment Weight Metrics: Today's Height: Today's Weight: (!) 337 lb 3.2 oz (153 kg) Today's BMI: Body mass index is 54.43 kg/m?. Surgeon: Dr. Voss Surgical Procedure: [x] Sleeve Gastrectomy Preop Diet: 2 wks Medical History: Past Medical History: Diagnosis Date ADHD (attention deficit hyperactivity disorder) Anxiety panic attacks Depression Morbid obesity, unspecified obesity type (HCC) 02/02/2024 Obesity Snoring Current Medications: currently has no medications in their medication list. Weight History Patient has been considering weight loss surgery for 2-3 months Primary reason(s) for weight loss to improve quality of life Number of years over weight most of her life PREVIOUS WEIGHT LOSS ATTEMPTS Method When Amount lost Amount regained Most successful Low farida CURRENT MEAL PLANNING Self Spouse Significant Other Child Not Planned or Varies Other Meals planned by x Food shopping done by x Meals cooked by x CURRENT EATING BEHAVIORS: Pt stated that she does not have an eating routine or schedule. Pt was very vague regarding a 24 hour diet recall. We discussed the importance of eating every 2-3 hours and including a lean source of protein at each meal/snack. Adequate protein intake noted. Reviewed high protein options, many of which the pt is already consuming such as beef, chicken, eggs, etc. - Pt to pair a lean protein with a complex carbohydrate. Reviewed high protein foods to incorporate at meals and snacks. Pt to track protein intake. She downloaded [employer] during her visit today. - Pt stated that she does not like to have labs drawn d/t previous IV drug usage - Quit smoking cigarettes 3-4 weeks ago. Congratulated pt on accomplishment! - High ETOH intake noted. Pt stated that she drank quite a bit last night and did not feel great for her visit this morning. She has been drinking every day this past week and has been drinking the first thing in the morning so that she can feel a buzz on an empty stomach. Since I am bigger, it is harder for me to get drunk, so that is what I have to do to feel a buzz. - Pt stated that she had significant anxiety coming to today's visit. She stated that she is prescribed Prozac daily for post depression, but only takes it when she remembers. We reviewed the importance of compliance with prescribed medication. - We discussed the LSG procedure in great length. She thought the surgeon was removing excess fat tissue around her abdominal area. She was not aware that Dr. Voss was removing a portion of her stomach with the LSG. # of meals eaten way from home each week [x] < 5 [] 5-10 [] > 10 Types of restauants [x] Fast Food [] Cafeteria [] Full Service [] Buffet Reasons for eating out: [] Doesn't like to cook [] No time [] Doesn't know how Drinks Coffee/Tea [x] No [] Yes Type/Quantity: Drinks Soft Drinks/Pop [] No [x] Yes Type/Quantity: only on special occasions Drinks Alcohol [] No [x] Yes Type/Quantity: See note Drinks Water [] No [x] Yes Type/Quantity: >64oz water daily Drinks Fruit Juice or Milk [x] No [] Yes Type/Quantity: Drinks Sports Drinks [x] No [] Yes Type/Quantity: SUPPORT SYSTEM A. Family knowledgeable about/supportive of plans for weight loss surgery: Yes - pt's grandma is very supportive of pt having WLS B. Patient understands that they must have someone in their home 24/7 for the first week following surgery, or that they must be able to stay with someone for the first week Yes C. Co-workers knowledgeable about/supportive of plans for weight loss surgery: Yes KNOWLEDGE AND EDUCATION ASSESSMENT AND PLAN Patient's level of knowledge regarding the changes that will have to be made in their diet following weight loss surgery is: [x] Fair - Patient has beginning understanding of changes, will require significant education Areas of concern include: - Decrease ETOH intake - low meal frequency - to increase meal frequency to every 2-3 hours by adding one high protein AM snack in November and a high protein PM snack in December - low protein intake - incorporate a high protein food at each meal and snack. Recommended tracking intake on [employer] Matt. Reviewed high protein foods to incorporate RECOMMENDATIONS AND PLAN [x] Educational Materials Provided [x]Strategies for Eating handout given to and discussed with patient [x] Need to see patient again: [x] after patient reviews educational materials [x] after patient completes initial psychological evaluation Bariatric Nutrition Assessment completed by: NEVIN BaileyOWM LD [facility] [id number] 36 Patient contact made via telephone. Scheduled patient appointment with Aira in [place] on May 16. Patient agreed and confirmed appointment [facility] 36 Attempted to call patient unable to leave a message [facility] [id number] 36 Name of Caller: Michoacano Contact Reason for Appointment: Michoacano called advising she is too sick to come to her appointment and would like to reschedule. Please call patient back to reschedule appointment and advise. Office Name: Weight Management [facility] 3604-07-2024 36 Orders mailed (D/E R/S to 04/18/2024 W/ AM) [facility] 36on 02-10-2024 36 Orders / pre op check list placed in folder for initial D/E 04/07/2024 W/ MZ [facility] 29on 02-08-2024 29 Addended by: SILVA CASTILLO on: 02/08/2024 01:28 PM Modules accepted: Orders [facility] 29 Addended by: MOLLY SANDERS on: 02/08/2024 10:57 AM Modules accepted: Orders [facility] 36 02-08-20[address] [facility] 36 EGD order sent to 260 clinical nurse manager, Initial labs pended UGI and US ordered, Pre op check list scanned to media. [facility] 36 PLAN Encounter Diagnosis Name Primary? Morbid obesity with BMI of 50.0-59.9, adult (HCC) Yes I have recommended proceeding with the evaluation and work-up for the primary procedure as outlined below: PATIENT SUMMARY Michoacano Rojas Katie GARCIA 23 y.o. female with Body mass index is 56.1 kg/m?. Laparoscopic Sleeve Gastrectomy and Laparoscopic Liver Biopsy Procedure DM[] HTN[] SARAI[] GERD[x] HL[] OA[] TOB[] Date of Surgery: TBD NOTES MP PCP: INITIAL TESTING RESULTS Labwork [x] CMP, TSH, Fasting Lipid Profile, Mg, Zinc, Vit B1 (whole blood), Vit B12, 25-OH Vit D, Fe, Ferritin, Folate Tobacco [x] Serum Nicotine / Cotinine [] Negative [] Positive EGD [x] Dx: [x] GERD [] Dyspepsia [] Other Pathology [x] H. pylori [] Negative [] Positive UGI [] [] not ordered US Abdomen [] [] not ordered SARAI eval [] [] On CPAP / Obtain settings Hematology [] [] Hypercoagulation panel Toxicology [x] [x] Urine drug screen [x] EtOH screen Addtional [] [x] Hgb A1c INITIAL CONSULTATIONS CLEARANCE / MANAGEMENT Psychology [x] Dietitian [x] Cardiology [x] Pulmonary [x] Others [] []Heme/Onc []Psychiatry []Pain mgmt PSD [] Physician supervised diet: []None []3 mos [x]6 mos Preop diet [] Preop low calory diet: []None []1 wk [x]2 wks []Ext. FINAL PRE-OP TESTING RESULTS Labwork [x] [x]Pre-op CBC [x]BMP []Serum Nicotine / Cotinine EKG [x] CXR [x] POST-OP MEDICATIONS Ulcer Ppx [] Omeprazole 20 mg PO []QD []BID Gallstone Ppx [] Ursodiol 300 mg []BID DVT Ppx [] DVT prophylaxis per final preop visit estimated risk Estimated calculated risk: % Schedule final pre-operative office visit with surgeon, pre-operative education class, and pre-operative exercise class prior to date of surgery ATTESTATION I reviewed with the patient the details of the proposed operation. The risks benefits and options were discussed. Risks included but were not limited to bleeding, infection, damage to other surrounding organs, cardio-pulmonary complications related to anesthesia, conversion from laparoscopic to and open procedure, the need for reoperative or endoscopic therapy, the potential for prolonged mechanical ventilation, and . All questions were fully answered to the patient's satisfaction and they wish to proceed with surgical intervention. Sleeve Liver biopsy The face to face encounter was spent counseling the patient and discussing the risks,benefits and options of surgery as well as the perioperative care plan. The patient was seen and examined independently and relevant data including a full chart rreview was performed by myself. [facility] Progress Noteon 02-08-2024 Progress Note Printed [facility] Progress Note 3rd attempt mailed letter to patient to schedule EGD- my chart not active [facility] Progress Note 1st att lvm to schedule EGD [facility] Progress Note ENDOSCOPY ORDERS To be scheduled with: Dr. Voss Patient is: Pre-op/Pre-Bariatri c Surgery CPT code: EGD with biopsy- CPT 61721 Diagnosis: GERD- K21.9 If pre-op, Diet & Exercise Requirements are, and started/scheduled on 04/07/2024: 6 months Home O2: No Known Difficult Intubation: No The medication list needs reviewed at time of scheduling and again at time of reminder call. GLP-1 agonists: Semaglutide Brand names- Ozempic, Wegovy or Rybelsus needs held 1 week prior to procedure Tirzepatide Brand names- Mounjaro or Zepbound- needs held 1 week prior to procedure Dulaglutide (Trulicity)- needs held 1 week prior to procedure Liraglutide (Victoza)- daily injectable that just needs held 1 day before procedure) Exenatide Brand name Bydureon- needs held 1 week prior to procedure Brand name Byetta- daily injectable and just needs held 1 day before procedure Blood thinners: Aspirin Xarleto (rivaroxaban) Eliquis (apixaban) Plavix (clopidogrel) Warfarin/Jantoven (coumadin) Brillinta (ticagrelor) Pradaxa (dabigatran) If endoscopy is scheduled within 17 days authorization will need to be obtained prior to scheduling [facility] Progress Note 2nd attempt Called and LVM to schedule patient for EGD [facility] Office Visiton 02-07-2024 Follow-up visit [id number] Michoacano Wilson 2000 F Date Provider Department Center 02/07/2024 [id number] SURG None Family History Problem Relation Age of Onset Learning disabilities Mother High Blood Pressure Mother Substance Abuse Mother Depression Mother Other Mother Comments: ADD Other Father Comments: ADHA Arthritis Mother Arthritis Father High Blood Pressure Father Learning disabilities Father Family Status - Relation Status Age at Mother Alive Father Alive Level of Service:[id number] [place] OFFICE/OUTPATIENT NEW MODERATE MDM 45 MINUTES Reason for Visit and Comments: Surgical Consult [878] - New surg [facility] Progress Noteon 02-07-2024 Progress Note [facility] SURGICAL WEIGHT LOSS MANAGEMENT PROGRAM Rooming Note - INITIAL CONSULTATION Patient: Michoacano Wilson Date of : 2000 Service Date: 02/07/2024 Patient is here today to discuss the possibility of weight loss surgery. Physician Supervised D/E: 6M Weight Metrics: Vitals BP: 109/73 Heart Rate: 64 Resp: 18 Temp: 36.4 ?C (97.5 ?F) Baseline Measures Initial Height: 5' 6 (167.6 cm) Initial Weight: 347 lb 9.6 oz (158 kg) Initial BMI: 56.1 Initial EBW: 217 lb 9.6 oz (98.7 kg) Initial Waist Cricumference: 64.25in Initial Neck Circumference: 16.5in History of Difficult Intubation: No Patient is not on home O2 Completed by: Florina Plummer MA [facility] ED NOTEon 04-18-2023 ED NOTE HNO ID: [id number] Author: NICOLETTE LI, PAUL Service: ? Author Type: Registered Nurse Type: ED Notes Filed: 04/18/2023 04:25 Note Text: Pt did not answer x2 at 0407 and 0425. Pt was seen exiting ER without return. [facility] ED NOTE HNO ID: [id number] Author: NICOLETTE LI RN Service: ? Author Type: Registered Nurse Type: ED Notes Filed: 04/18/2023 04:24 Note Text: . [facility] XR ANKLE 3V AP/LAT/OBL LTon 04-18-2023 XR ANKLE 3V AP/LAT/OBL LT * * *Final Report* * * DATE OF EXAM: Apr 18 2023 1:50AM RHX [id number] - XR ANKLE 3V AP/LAT/OBL LT / PROCEDURE REASON: Ankle pain, no prior imaging * * * * Physician Interpretation * * * * EXAM: XR ANKLE 3V AP/LAT/OBL LT CLINICAL INFORMATION ( PROVIDED BY ORDERING CLINICIAN) : Ankle pain, no prior imaging COMPARISON: None available FINDINGS: See impression. IMPRESSION: No acute displaced fracture. Articulation maintained. Mild degenerative change along the anterior ankle joint. Lateral and anterior ankle soft tissue swelling. The ankle mortise and talar dome are preserved. Malt Roaster: PSCB Transcribe Date/Time: Apr 18 2023 2:12A Dictated by : IAIN YANG MD This examination was interpreted and the report reviewed and electronically signed by: IAIN YANG MD on Apr 18 2023 2:12AM EST [id number] ACN Normal [facility] Abdomen/Pelvis W IV Cont ONL Yon 03-23-2022 Abdomen/Pelvis W IV Cont ONLY [facility] Imaging Services [address] [place] [address] Abdomen/Pelvis W IV Cont ONLY MR#: [id number] Acct: [id number] Name: MICHOACANO WILSON Rep #: [id number] : 2000 F 21 From: Margarito block MD PCP: Care Physician,No Primary Status: REG ER Study: Abdomen/Pelvis W IV Cont ONLY Date of Exam: Exam# [id number] Ordering Dr: Jason Molina DO STUDY: CT ABDOMEN AND PELVIS WITH CONTRAST REASON FOR EXAM: Female, 21 years old. RLQ abdominal pain RADIATION DOSAGE (If Supplied By Facility): CTDIvol = ( 34.97 ) mGy, DLP = ( 2038.68 ) mGycm TECHNIQUE: Transaxial images were obtained from the dome of the diaphragm to the symphysis pubis without oral contrast. IV 100mL Isovue-300 was administered. Sagittal and coronal images were reconstructed. Individualized dose optimization techniques were used for this CT. COMPARISON: None. FINDINGS: The visualized lung bases are unremarkable. The visualized portions of the heart are within normal limits. Normal liver. There is a solitary gallstone. Normal spleen. Normal pancreas. Normal bilateral adrenal glands. Normal right kidney. Normal left kidney. There is a small hiatal hernia. Normal small intestine. Normal colon. There is a tubular, thick-walled appendix (>7mm), consistent with acute appendicitis. Normal abdominal aorta. Normal inferior vena cava. Normal retroperitoneum. Normal urinary bladder. There is a small umbilical hernia containing fat. Normal osseous structures. CT/Abdomen/Pelvis W IV Cont ONLY IMPRESSION: Thickened appendix with increased markings in the surrounding peritoneal fat in keeping with acute noncomplicated appendicitis. Small solitary gallstone. Small umbilical hernia. Electronically Signed: Margarito Blanco MD at 11:22 EST , CC: Dr. Jason Molina, DO; No Primary Care Physician Malt Roaster: Signed Normal [facility] Absolute lymphocyte countOrd ered By: Dr. Molina on 03-23-2022 Lymphocytes Auto (Unsp spec) [#/Vol] 1.70 10*3/uL 0.83-4.51 [facility] Basophil percentageOrdered B y: Dr. Molina on 03-23-2022 Basophil percentage 0 SEEN /hpf 0-5 [facility] Basophils/100 WBC (Bld) 0.5 % 0-1 [facility] Bilirubin [Mass/Vol] 0.50 mg/dL 0.20-1.00 [facility] Comment on above: For patients on eltr ombopag therapy, use of Dimension [place] TBIL is not recommended. Chloride [Moles/Vol] 108 mmol/L 98-107 [facility] Eosinophils/100 WBC (Bld) 1.0 % 0-5 [facility] Glucose [Mass/Vol] 105 mg/dL 74-106 [facility] Comment on above: Fasting Glucose resu lt from 100 to 125 mg/dL suggests IMPAIRED HOMEOSTASIS per A.D.A. criteria. Neutrophils (Bld) [#/Vol] 10.6 10*3/uL 2.0-7.7 [facility] Neutrophils/100 WBC (Bld) 79.0 % 47-70 [facility] Potassium [Moles/Vol] 4.2 mmol/L 3.5-5.1 [facility] Protein [Mass/Vol] 7.1 g/dL 6.4-8.2 [facility] Sodium [Moles/Vol] 139 mmol/L 136-145 [facility] WBC (Bld) [#/Vol] 13.4 10*3/uL 4.4-11.0 [facility] Bilirubin Test strip Ql (U)O rdered By: Dr. Molina on 03-23-2022 Bilirubin Ql (U) Negative Negative [facility] Blood erythrocytes count (nu mber/volume)Ordered By: Dr. Molina on 03-23-2022 RBC (Bld) [#/Vol] 4.51 10*6/uL 4.2-5.4 [facility] Blood hemoglobin measurement (mass/volume)Ordered By: Dr. Molina on 03-23-2022 Hemoglobin (Bld) [Mass/Vol] 12.1 g/dL 12.0-15.0 [facility] Blood lymphocytes/100 leukoc ytesOrdered By: Dr. Molina on 03-23-2022 Lymphocytes/100 WBC (Bld) 12.6 % 19-41 [facility] Blood monocytes/100 leukocyt esOrdered By: Dr. Molina on 03-23-2022 Monocytes/100 WBC (Bld) 6.4 % 0-10 [facility] Blood platelet mean volumeOr dered By: Dr. Molina on 03-23-2022 Platelet mean volume (Bld) [Entitic vol] 10.0 fL 6.2-12.0 [facility] CBC W/Diff, Automatedon 03-08 Absolute Lymph 1.70 X10 3/uL Normal 0.83-4.51 [facility] Comment on above: Performed By: #### L 500.4050, L100.0100 #### [facility] [address] [place], [address] Absolute Neut 10.6 X10 3/uL High 2.0-7.7 [facility] Comment on above: Performed By: #### L 500.4050, L100.0100 #### [facility] [address] [place], [address] Basophils/100 WBC (Bld) 0.5 % Normal 0-1 [facility] Comment on above: Performed By: #### L 500.4050, L100.0100 #### [facility] [address] [place], [address] Eosinophils/100 WBC (Bld) 1.0 % Normal 0-5 [facility] Comment on above: Performed By: #### L 500.4050, L100.0100 #### [facility] [address] [place], [address] Erythrocyte distribution width (RBC) [Ratio] 14.7 % High 11.6-14.6 [facility] Comment on above: Performed By: #### L 500.4050, L100.0100 #### [facility] [address] [place], [address] Hematocrit (Bld) [Volume fraction] 39.5 % Normal 37-47 [facility] Comment on above: Performed By: #### L 500.4050, L100.0100 #### [facility] [address] [place], [address] Hemoglobin (Bld) [Mass/Vol] 12.1 g/dL Normal 12.0-15.0 [facility] Comment on above: Performed By: #### L 500.4050, L100.0100 #### [facility] [address] [place], [address] IG% 0.500 Normal 0.0-0.9 [facility] Comment on above: Result Comment: IG% - Immature Granulocytes (promyelocytes, myelocytes and metamyelocytes) > 1% indicates that a LEFT SHIFT is Present. Performed By: #### L 500.4050, L100.0100 #### [facility] [address] [place], [address] Lymphocytes/100 WBC (Bld) 12.6 % Low 19-41 [facility] Comment on above: Performed By: #### L 500.4050, L100.0100 #### [facility] [address] [place], [address] MCH (RBC) [Entitic mass] 26.8 pg Low 27.0-32.0 [facility] Comment on above: Performed By: #### L 500.4050, L100.0100 #### [facility] [address] [place], [address] MCHC (RBC) [Mass/Vol] 30.6 g/dL Low 32-36 [facility] Comment on above: Performed By: #### L 500.4050, L100.0100 #### [facility] [address] [place], [address] MCV (RBC) [Entitic vol] 87.6 fL Normal 81-99 [facility] Comment on above: Performed By: #### L 500.4050, L100.0100 #### [facility] [address] [place], [address] Monocytes/100 WBC (Bld) 6.4 % Normal 0-10 [facility] Comment on above: Performed By: #### L 500.4050, L100.0100 #### [facility] [address] [place], [address] Neutrophils/100 WBC (Bld) 79.0 % High 47-70 [facility] Comment on above: Performed By: #### L 500.4050, L100.0100 #### [facility] [address] [place], [address] Nucleated RBC (Bld) [#/Vol] 0 10*3/uL Normal 0-5 [facility] Comment on above: Performed By: #### L 500.4050, L100.0100 #### [facility] [address] [place], [address] Platelet mean volume (Bld) [Entitic vol] 10.0 fL Normal 6.2-12.0 [facility] Comment on above: Performed By: #### L 500.4050, L100.0100 #### [facility] [address] [place], [address] Platelets (Bld) [#/Vol] 328 10*3/uL Normal 150-450 [facility] Comment on above: Performed By: #### L 500.4050, L100.0100 #### [facility] [address] [place], [address] RBC (Bld) [#/Vol] 4.51 10*6/uL Normal 4.2-5.4 [facility] Comment on above: Performed By: #### L 500.4050, L100.0100 #### [facility] [address] [place], [address] RDW SD 47.4 fl High 35.1-43.9 [facility] Comment on above: Performed By: #### L 500.4050, L100.0100 #### [facility] [address] [place], [address] WBC (Bld) [#/Vol] 13.4 10*3/uL High 4.4-11.0 [facility] Comment on above: Performed By: #### L 500.4050, L100.0100 #### [facility] [address] [place], [address] CNOVon 03-23-2022 CNOV Office Visit ([facility]) ---- MICHOACANO WILSON ([id number]) 2000 F Date Time Provider Department 03/23/22 9:00 AM LENCHO MOYER [facility] During your visit today, we recorded the following information about you: Temperature Pulse Respiration Blood pressure 97.1 degrees 75/minute 20/minute 110/70 Weight 143 kg Lencho Moyer APRN.HEAD DOFFER 03/23/2022 9:10 AM Signed Subjective HPI Nontoxic-appearing female presents urgent care accompanied by significant other. Chief plaint right lower quadrant pain. Duration of symptom 1 day. Associated symptoms worsening right lower abdominal pain. Did have few episodes of loose stool today. Rates pain 8 out of 10. Pain is exacerbated by movement or pushing over the area. Past Medical history prescription medication use allergies reviewed. .Patient presents with: Abdominal Pain: Lower right quadrant , diarrhea x 1 day History reviewed. No pertinent past medical history. History reviewed. No pertinent surgical history. ALLERGIES Patient has no allergy information on record. MEDICATIONS No prescriptions on file. History reviewed. No pertinent family history. Social History Tobacco Use Smoking status: Never Passive exposure: Current Smokeless tobacco: Never BP 110/70 Pulse 75 Temp 36.2 ?C (97.1 ?F) Resp 20 Wt (!) 143 kg (315 lb 3.2 oz) SpO2 100% Review of Systems Constitutional: Negative for chills, fever and malaise/fatigue. HENT: Negative for sore throat. Respiratory: Negative for cough, hemoptysis, sputum production, shortness of breath, wheezing and stridor. Cardiovascular: Negative for chest pain. Gastrointestinal: Positive for abdominal pain and diarrhea. Negative for nausea and vomiting. Musculoskeletal: Negative for myalgias. Skin: Negative for itching and rash. Objective Physical Exam Constitutional: General: She is not in acute distress. Appearance: She is not diaphoretic. HENT: Head: Normocephalic. Eyes: Conjunctiva/sclera: Conjunctivae normal. Pupils: Pupils are equal, round, and reactive to light. Cardiovascular: Rate and Rhythm: Normal rate and regular rhythm. Heart sounds: Normal heart sounds. Pulmonary: Effort: Pulmonary effort is normal. No tachypnea, accessory muscle usage or respiratory distress. Breath sounds: Normal breath sounds. No stridor. No wheezing, rhonchi or rales. Abdominal: General: There is no distension. Palpations: Abdomen is soft. Tenderness: There is abdominal tenderness in the right lower quadrant. There is guarding. Musculoskeletal: Cervical back: Normal range of motion. Skin: General: Skin is warm and dry. Neurological: Mental Status: She is alert and oriented to person, place, and time. ASSESSMENT/PLAN: 1. Abdominal pain, right lower quadrant - ICD9: 789.03, ICD10: R10.31 Patient has significant discomfort with palpation of right lower quadrant. Recommend patient be seen the ED for evaluation care. Will be seen at [facility]. Patient verbalized understanding agrees with plan of care. Lencho Moyer APRN.HEAD DOFFER Allergies As of Date: 03/23/2022 (Not on File) Date Reviewed: 03/23/2022 Reviewed by: Lencho Moyer APRN.HEAD DOFFER - Fully Assessed Reason for Visit: Abdominal Pain [1] Cmt: Lower right quadrant , diarrhea x 1 day Primary Visit Diagnosis:Abdominal pain, right lower quadrant [R10.31] Problem List As Of Date: 03/23/2022 (None) Encounter Status:Closed by LENCHO MOYER on 03/23/22 Normal [facility] Metabolic Prof ohon 03-23-2022 Albumin [Mass/Vol] 3.4 g/dL Normal 3.2-5.0 [facility] Comment on above: Performed By: #### L 500.4050, L100.0100 #### [facility] [address] [place], [address] Albumin/Globulin [Mass ratio] 0.9 {ratio} Normal 0.9-2.4 [facility] Comment on above: Performed By: #### L 500.4050, L100.0100 #### [facility] [address] [place], [address] ALK P 66 U/L Normal 45-117 [facility] Comment on above: Performed By: #### L 500.4050, L100.0100 #### [facility] [address] [place], [address] ALT [Catalytic activity/Vol] 24 U/L Normal 13-56 [facility] Comment on above: Performed By: #### L 500.4050, L100.0100 #### [facility] [address] [place], [address] AST [Catalytic activity/Vol] 23 U/L Normal 15-37 [facility] Comment on above: Performed By: #### L 500.4050, L100.0100 #### [facility] [address] [place], [address] Bilirubin [Mass/Vol] 0.50 mg/dL Normal 0.20-1.00 [facility] Comment on above: Result Comment: For patients on eltrombopag therapy, use of Dimension [place] TBIL is not recommended. Performed By: #### L 500.4050, L100.0100 #### [facility] [address] [place], [address] BUN/CRE 17.9 RATIO Normal 10-20 [facility] Comment on above: Performed By: #### L 500.4050, L100.0100 #### [facility] [address] [place], [address] CA,Total 8.4 mg/dL Low 8.5-10.1 [facility] Comment on above: Performed By: #### L 500.4050, L100.0100 #### [facility] [address] [place], [address] Chloride [Moles/Vol] 108 mmol/L High 98-107 [facility] Comment on above: Performed By: #### L 500.4050, L100.0100 #### [facility] [address] [place], [address] CO2 [Moles/Vol] 25.0 mmol/L Normal 21.0-32.0 [facility] Comment on above: Performed By: #### L 500.4050, L100.0100 #### [facility] [address] [place], [address] Creatinine [Mass/Vol] 0.67 mg/dL Normal 0.55-1.02 [facility] Comment on above: Result Comment: The validity of the calculated GFR GFRAA in patients over 70 years has not been determined. Clinical correlation is essential. Performed By: #### L 500.4050, L100.0100 #### [facility] [address] [place], [address] ECRCL 126.99 ml/min Normal [facility] Comment on above: Performed By: #### L 500.4050, L100.0100 #### [facility] [address] [place], [address] EST GFR - AA 140 mL/min Normal >60 [facility] Comment on above: Result Comment: Afri can [place] GFR Calc Performed By: #### L 500.4050, L100.0100 #### [facility] [address] [place], [address] GAP 6 Normal 5-15 [facility] Comment on above: Performed By: #### L 500.4050, L100.0100 #### [facility] [address] [place], [address] GFR/1.73 sq M.predicted among non-blacks MDRD (S/P/Bld) [Vol rate/Area] 115 mL/min/{1.73_m2} Normal >60 [facility] Comment on above: Result Comment: Non- GFR Calc Performed By: #### L 500.4050, L100.0100 #### [facility] [address] [place], [address] Globulin (S) [Mass/Vol] 3.7 g/dL Normal 2.2-4.2 [facility] Comment on above: Performed By: #### L 500.4050, L100.0100 #### [facility] [address] [place], [address] Glucose [Mass/Vol] 105 mg/dL Normal 74-106 [facility] Comment on above: Result Comment: Fast ing Glucose result from 100 to 125 mg/dL suggests IMPAIRED HOMEOSTASIS per A.D.A. criteria. Performed By: #### L 500.4050, L100.0100 #### [facility] [address] [place], [address] Potassium [Moles/Vol] 4.2 mmol/L Normal 3.5-5.1 [facility] Comment on above: Performed By: #### L 500.4050, L100.0100 #### [facility] [address] [place], [address] Sodium [Moles/Vol] 139 mmol/L Normal 136-145 [facility] Comment on above: Performed By: #### L 500.4050, L100.0100 #### [facility] [address] [place], [address] T PROT 7.1 g/dL Normal 6.4-8.2 [facility] Comment on above: Performed By: #### L 500.4050, L100.0100 #### [facility] [address] [place], [address] Urea nitrogen [Mass/Vol] 12 mg/dL Normal 7-18 [facility] Comment on above: Performed By: #### L 500.4050, L100.0100 #### [facility] [address] [place], [address] Consultation - Surgicalon Consultation - Surgical [facility] Medical Records Department [address] [place] [address] Consultation - Surgical 03/23/22 1251 MR#: [id number] Acct: [id number] Name: MICHOACANO WILSON Rep #: [id number] : 2000 21 From: Saurabh Solomon MD PCP: Care Physician,No [place] [facility] [place] [address] Assessment Plan Assessment/Plan (1) Acute appendicitis: PLAN: Did discuss the anatomy and procedure: laparoscopic appendectomy, possible open with the patient. Including risks, but not limited to, bleeding, infection (superficial or intraabdominal), injury to another organ (small bowel, colon, ureter, etc.) requiring additional procedures, and blood clots. Also, discussed the pre-op, colon prep and antibiotics. All questions were answered. HPI Consult Data Date of Consult: 03/23/22 HPI Narrative HPI Narrative: MICHOACANO WILSON, is a 21 F who presenting with right lower quadrant abdominal pain and periumbilical abdominal pain which started this morning at about 2 AM.??? She has had some nausea but has not vomited.??? She also admits to some diarrhea.??? She has not had a fever.??? Denies urinary complaints or vaginal complaints.??? No history of kidney stones or ovarian cysts.??? She states the pain is increasing and describes it as a sharp/achy pain.??? Patient was seen in urgent care and referred to the ER for concern for appendicitis.??? Patient reports no abdominal surgeries previously.??? She reports no medication allergies..??? She has low suspicion for as she is on the Depo-Provera shot. CT scan of the abdomen did show acute appendicitis. [facility] Medical History ADHD Post depression Medical History no medical history Home Medications NK 03/23/22 [History Last Taken Unknown] Allergy/AdvReac Type Severity Reaction Status Date / Time No Known Allergies Allergy Verified 03/23/22 09:13 Surgical History History of tonsillectomy Surgical History no surgical history Social History Smoking Status: Never smoker ROS ENT HEENT: Denies abnormal hearing Cardiovascular Cardiovascular: Denies chest pain Respiratory/Chest Respiratory/Chest: Denies cough or dyspnea Gastrointestinal Gastrointestinal: Reports abdominal pain Physical Exam Const alert, oriented x3 and no apparent distress HEENT normocephalic and head/scalp atraumatic Eyes PERRL and EOMs intact bilaterally Resp clear to auscultation bilaterally Cardio Rate: regular rate Rhythm: regular rhythm GI soft to palpation Palpation: tender RLQ and McBurney's point; Negative for guarding Lab / Micro Data Result Diagrams: 03/23/22 09:20 03/23/22 09:20 Labs: Laboratory Results - last 24 hr 03/23/22 09:20: WBC 13.4 H, RBC 4.51, Hgb 12.1, Hct 39.5, MCV 87.6, MCH 26.8 L, MCHC 30.6 L, RDW Std Deviation 47.4 H, RDW Coeff of Mckayla 14.7 H, Plt Count 328, MPV 10.0, Immature Gran % (Auto) 0.500, Neut % (Auto) 79.0 H, Lymph % (Auto) 12.6 L, [place] % (Auto) 6.4, Eos % (Auto) 1.0, Baso % (Auto) 0.5, Absolute Neuts (auto) 10.6 H, Absolute Lymphs (auto) 1.70, Nucleated RBC % 0 03/23/22 09:20: Sodium 139, Potassium 4.2, Chloride 108 H, Carbon Dioxide 25.0, Anion Gap 6, BUN 12, Creatinine 0.67, Estim Creat Clear Calc 126.99, Est GFR (MDRD) Af Amer 140, Est GFR (MDRD) Non-Af 115, BUN/Creatinine Ratio 17.9, Glucose 105, Calcium 8.4 L, Total Bilirubin 0.50, AST 23, ALT 24, Alkaline Phosphatase 66, Total Protein 7.1, Albumin 3.4, Globulin 3.7, Albumin/Globulin Ratio 0.9 03/23/22 10:00: Urine Color Yellow, Urine Clarity Sl. Cloudy, Urine pH 6.0, Ur Specific [place] 1.020, Urine Protein Negative, Urine Glucose (UA) Normal, Urine Ketones Negative, Urine Occult Blood Negative, Urine Nitrite Negative, Urine Bilirubin Negative, Urine Urobilinogen Normal, Ur Leukocyte Esterase Negative, Urine RBC 0 SEEN, Urine WBC 0 SEEN, Ur Squamous Epith Cells 0-5 SEEN, Urine Bacteria 0 SEEN, Urine Mucus 0 SEEN, Urine Test Negative Radiology Impression Abdomen/Pelvis CT 03/23/22 09:26 IMPRESSION: Thickened appendix with increased markings in the surrounding peritoneal fat in keeping with acute noncomplicated appendicitis. Small solitary gallstone. Small umbilical hernia. Electronically Signed: Margarito Blanco MD at 11:22 EST , 03/23/22 1254 Cosigner Signature (if applicable): CC: No Primary Care Physician Signed Normal [facility] Determination of erythrocyte mean corpuscular volume (MCV)Ordered By: Dr. Molina on 03-23-2022 MCV (RBC) [Entitic vol] 87.6 fL 81-99 [facility] Discharge Instructionon 03-[address] [facility] Medical Records Department [address] [place] [address] Instructions for Home/Discharge Instructions 03/23/22 1346 MR#: [id number] Acct: [id number] Name: MICHOACANO WILSON Rep #: [id number] : 2000 From: Saurabh Solomon MD PCP: Care Physician,No [place] [facility] [place] Instructions Procedure Appendectomy Diet Discharge Diet: Light diet - advance as tolerated (if you have questions about your diet instructions, please talk to you doctor.) Activity Discharge Activity: May Not Drive (for 3-5 days or while taking narcotic pain meds.) May shower in (days): 1 Dressing / Incision Call your doctor if your incision/area has: Continuous Slow Oozing, Sudden Increased Bleeding, Increased Pain/ Swelling, Increased Redness and Foul Smelling Discharge Call your doctor if you observe: Fever of 101 or Higher Suture Line Care: Avoid Pulling/Pushing and Avoid Pinching/Bending Additional Dressing/Incision Instructions:: Keep dressing clean and dry. Change or remove dressing in 2 days. Leave steri strips for 1 week. May protect with a gauze bandaid. Follow Up Care Please Follow Up With: Radha Hilario PA-C When: Call office to schedule an appointment to be seen in 1 week. Test Results: Test results from this visit will be discussed in further detail at your follow-up appointment, if applicable. Discharge Plan Admission Attending Provider: Saurabh Solomon Primary Care Provider: Care Physician,Brenda Primary Discharge Orders/Prescription s Prescriptions: New oxycodone-acetamino phen [Endocet] 5-325 mg tablet 1 tab PO Q4H PRN (Reason: pain) 5 Days Qty: 20 0RF Referrals / Follow Up: Care Physician,No Primary [Primary Care Provider] - Radha Hilario PA-C [Med Staff - Adv Practice Prof] - Disposition Disposition (needs filled in before D/C Order can be placed): Home, Self Care 03/23/22 1346 Saurabh Solomon MD CC: No Primary Care Physician Signed Normal [facility] Emergency Department Summary on 03-23-2022 Emergency Department Summary [facility] Medical Records Department [address] [place] [address] Emergency Department Summary 03/23/22 MR#: [id number] Acct: [id number] Name: MICHOACANO WILSON Rep #: [id number] : 2000 21 From: Jason Molina DO PCP: Care Physician,No Primary Status:REG ER Location: ED HPI HPI - GI History of Present Illness Chief Complaint: Abd Pain Narrative Narrative: 20-year-old female presenting with right lower quadrant abdominal pain and periumbilical abdominal pain which started this morning at about 2 AM. She has had some nausea but has not vomited. She also admits to some diarrhea. She has not had a fever. Denies urinary complaints or vaginal complaints. No history of kidney stones or ovarian cysts. She states the pain is increasing and describes it as a sharp/achy pain. Patient was seen in urgent care and referred to the ER for concern for appendicitis. Patient reports no abdominal surgeries previously. She reports no medication allergies.. She has low suspicion for as she is on the Depo-Provera shot. PFSH PFSH Medical History no medical history Home Medications NK 03/23/22 [History Last Taken Unknown] Allergy/AdvReac Type Severity Reaction Status Date / Time No Known Allergies Allergy Verified 03/23/22 09:13 Surgical History no surgical history Social History Smoking Status: Never smoker ROS ROS ED Constitutional Constitutional ED: Denies chills, fever(s) or sweats Eyes Eyes: Denies blurry vision or change in vision ENT ENT ED: Denies ear pain or sore throat Cardiovascular Cardiovascular: Denies chest pain, palpitations or racing heartbeat Respiratory/Chest Respiratory/Chest: Denies cough, dyspnea or sputum Gastrointestinal Gastrointestinal: Reports abdominal pain, diarrhea and nausea; Denies constipation or vomiting Genitourinary Genitourinary ED: Denies dysuria, hematuria or urinary frequency Musculoskeletal Musculoskeletal: Denies arthralgias, myalgias or neck pain Integumentary Denies abscess, Abrasions or rash Neurologic Neurologic: Denies headache(s), paresthesias or weakness Psychiatric Psychiatric: Denies anxiety, depression, suicidal ideation or suicidal thoughts Endocrine Endocrinology: Denies polydipsia or polyuria EXAM Physical Exam Const Vital Signs: 03/23/22 09:14 03/23/22 11:24 Temperature 96.5 F L Temperature Source Temporal Pulse Rate 74 84 Respiratory Rate 18 18 Blood Pressure 129/77 H 126/80 H Blood Pressure Mean 94 95 Pulse Ox 99 99 Oxygen Delivery Method Room Air Positive well nourished General Appearance ED: NAD; Negative for pallor HEENT Reports moist mucous membranes normocephalic Eyes PERRL and EOMs intact bilaterally General Eye ED: Negative for pale conjunctiva or scleral icterus Neck no lymphadenopathy Resp normal respiratory effort and clear to auscultation bilaterally Effort and Inspection: Negative for respiratory distress Cardio regular rate and regular rhythm GI Palpation: tender RLQ and Rovsing's sign Back/Spine no CVA tenderness Neuro CN's II-XII intact bilaterally Sensorium / Orientation: alert, oriented to person, oriented to place and oriented to time Motor Exam: strength 5/5 throughout Psych mental status grossly normal Skin no wounds General Skin Exam: Negative for jaundice or pallor MDM MDM MDM Narrative Medical decision making narrative: Patient seen and evaluated on arrival. Vital signs are stable and she is afebrile. She states has had worsening periumbilical and right lower quadrant pain since about 2 AM this morning. She is nauseous without vomiting. Patient reports she was at the urgent care prior to coming to the emergency room. On arrival she does have McBurney point tenderness. She also has a Rovsing. A line was established and patient was given morphine 4 mg and Zofran 4 mg. CBC was obtained to assess white blood cell count and differential. This does show a leukocytosis of 13.4. There is also a slight left shift. Platelets normal at 328. Hemoglobin is normal at 12.1. CMP was obtained to assess liver function, renal function, electrolytes. These all appear to be normal. Urinalysis obtained to assess for occult blood or infection is negative for any other. Urine test is also negative l. Given concern for appendicitis CT of the abdomen pelvis was ordered with IV contrast which shows acute uncomplicated appendicitis. On reevaluation the patient is still complaining of pain and she was given 0.5 mg of Dilaudid and she was given a liter of normal saline. Patient kept NPO. Patient was discussed with Dr. Solomon who is on-call for general surgery. Patient transported to the OR in stable condition. Impression: 1. (more content not included)... Normal [facility] Hematocrit Auto (Bld) [Volum e fraction]Ordered By: Dr. Molina on 03-23-2022 Hematocrit (Bld) [Volume fraction] 39.5 % 37-47 [facility] Ketones Test strip Ql (U)Ord ered By: Dr. Molina on 03-23-2022 Ketones Ql (U) Negative Negative [facility] - Chemistry and C hemistry - challengeOrdered By: Dr. Molina on 03-23-2022 HCG ( test) Ql (U) Negative [facility] Comment on above: Very dilute urine sp ecimens, as indicated by a low specificgravity, may not contain jewelry sales representative levels of hCG. If is still suspected, a first morning urinespecimen should be collected 48 hours later and tested. ALP [Catalytic activity/Vol] 66 U/L 45-117 [facility] ALT [Catalytic activity/Vol] 24 U/L 13-56 [facility] CO2 [Moles/Vol] 25.0 mmol/L 21.0-32.0 [facility] Globulin (S) [Mass/Vol] 3.7 g/dL 2.2-4.2 [facility] Urea nitrogen/Creatinine [Mass ratio] 17.9 mg/mg 10-20 [facility] - Hematology and Cell countsOrdered By: Dr. Molina on 03-23-2022 Erythrocyte distribution width (RBC) [Entitic vol] 47.4 fL 35.1-43.9 [facility] Erythrocyte distribution width (RBC) [Ratio] 14.7 % 11.6-14.6 [facility] Immature granulocytes/100 WBC (Bld) 0.500 % 0.0-0.9 [facility] Comment on above: IG% - Immature Granu locytes (promyelocytes, myelocytes and metamyelocytes) > 1% indicates that a LEFT SHIFT is Present. MCH (RBC) [Entitic mass] 26.8 pg 27.0-32.0 [facility] Nucleated RBC/100 WBC (Bld) [Ratio] 0 % 0-5 [facility] MCHC Auto (RBC) [Mass/Vol]Or dered By: Dr. Molina on 03-23-2022 MCHC (RBC) [Mass/Vol] 30.6 g/dL 32-36 [facility] Mucus LM Ql (Urine sed)Order ed By: Dr. Molina on 03-23-2022 Mucus Ql (Urine sed) 0 SEEN /hpf [facility] Nitrite Test strip Ql (U)Ord ered By: Dr. Molina on 03-23-2022 Nitrite Ql (U) Negative Negative [facility] No Panel InformationOrdered By: Dr. Molina on 03-23-2022 Estimated Creatinine Clearance Calc 126.99 ml/min [facility] Estimated GFR (MDRD) Amer 140 mL/min >60 [facility] Comment on above: GFR Calc Estimated GFR (MDRD) Non-Af Amer 115 mL/min >60 [facility] Comment on above: Non- GFR Calc Operative Reporton 3 Operative Report [facility] Medical Records Department [address] [place] [address] Operative Report 03/23/22 1340 MR#: [id number] Acct: [id number] Name: MICHOACANO WILSON Rep #: [id number] : 2000 21 From: Saurabh Solomon MD PCP: Care Physician,No [place] [facility] [place] [address] Problems Associated Problem List Diagnoses (1) Acute appendicitis: Report of Operation Date of Procedure: 03/23/22 Pre-Operative Diagnosis: Acute appendicitis Post-Operative Diagnosis: Same Surgery/Procedure Performed:: Laparoscopic appendectomy Surgeon: Saurabh Solomon precision machine operator: Giovani Medina Type of Anesthesia: General Anesthesiologist: Omi Hardin Specimen's removed: Appendix Drains: None Description of Procedure: Patient was brought into the operating room. Placed in the supine position. Under excellent general anesthetic the abdomen was sterilely prepped and draped in usual fashion. Local was injected infraumbilically. Dissection was carried down to the fascia. Fascia was grasped with a Bob. Varies needle was placed inside the abdomen. The abdomen was insufflated to 15 torr. A 10/12 trocar was placed without difficulty. Patient was placed in the headdown and rotated to the left position suprapubic #5 trocar was placed in the left lower quadrant #5 trochars placed both of these under direct visualization without injury to underlying structures. Patient was noted to have acute appendicitis the tip of the appendix was in the right lower quadrant attached to the abdominal wall this came down easily I came down the mesoappendix with the Enseal. I then transected the base of the appendix with a 45 linear cutter. I had excellent hemostasis. Placed the specimen in a specimen bag delivered through the umbilical port without difficulty. There was no pus in the abdomen I ran the small bowel looking for a Meckel's diverticulum I did not see any I remove the trochars under direct visualization good with stasis was noted. I closed the fascia the umbilical port with a [id number] stitch of 0 Vicryl. More local was injected into the fascia. Skin incisions were closed with subcuticular stitches of 4-0 Monocryl. Steri-Strips were applied. Sterile dressings were applied. Patient tolerated the procedure well. Admit VTE Documentation VTE Present on Admission: No VTE Mechan Device Prophylaxis: SCD's VTE Pharm Prophylaxis ordered?: No Reason prophylaxis not ordered:: Treatment Not Indicated 03/23/22 1343 Cosigner Signature (if applicable): CC: Dr. Saurabh Solomon MD; No Primary Care Physician Signed Normal [facility] Platelets bldOrdered By: Dr. Molina on 03-23-2022 Platelets (Bld) [#/Vol] 328 10*3/uL 150-450 [facility] ,Urineon 03-23-2022 Beta HCG ( test) Ql (U) Negative Normal [facility] Comment on above: Order Comment: CLEAN CATCH Result Comment: Very dilute urine specimens, as indicated by a low specific gravity, may not contain jewelry sales representative levels of hCG. If is still suspected, a first morning urine specimen should be collected 48 hours later and tested. Performed By: #### L 400.7600, L400.0001 #### [facility] [address] [place], [place], [id number] Protein Test strip Ql (U)Ord ered By: Dr. Molina on 03-23-2022 Protein Ql (U) Negative Negative [facility] Serum or plasma albumin josue urement (mass/volume)Ordered By: Dr. Molina on 03-23-2022 Albumin [Mass/Vol] 3.4 g/dL 3.2-5.0 [facility] Serum or plasma albumin/glob ulin mass ratioOrdered By: Dr. Molina on 03-23-2022 Albumin/Globulin [Mass ratio] 0.9 {ratio} 0.9-2.4 [facility] Serum or plasma calcium josue urement (mass/volume)Ordered By: Dr. Molina on 03-23-2022 Calcium [Mass/Vol] 8.4 mg/dL 8.5-10.1 [facility] Serum or plasma creatinine m easurement (mass/volume)Ordered By: Dr. Molina on 03-23-2022 Creatinine [Mass/Vol] 0.67 mg/dL 0.55-1.02 [facility] Comment on above: The validity of the calculated GFR & GFRAA in patients over 70 years has not been determined. Clinical correlation is essential. Serum or plasma urea nitroge n measurement (mass/volume)Ordered By: Dr. Molina on 03-23-2022 Urea nitrogen [Mass/Vol] 12 mg/dL 7-18 [facility] Squamous epithelial cells de tection in urine sediment by light microscopyOrdered By: Dr. Molina on 03-23-2022 Epithelial cells.squamous LM Ql (Urine sed) 0-5 SEEN /hpf 5-10 [facility] Surgery Specimen Level IIIon 03-23-2022 Surgery Specimen Level III Patient Age/Sex Location Account Attending Physician [place] [facility] [place] [id number]. Saurabh Solomon MD Specimen: [id number] Received: 03/23/22 Status: ERIN Gonsalezharinder Num: [id number] Spec Type: APPENDIX Subm Dr: Dr. Saurabh Solomon MD HEADER OPERATION: Laparoscopic appendectomy PRE-OP DIAGNOSIS: Acute appendicitis TISSUE SUBMITTED: Appendix MICROSCOPIC DIAGNOSIS Appendix, appendectomy: Acute appendicitis. Acute serositis. AM:haim 03/25/2022 MICROSCOPIC DESCRIPTION Slides are reviewed. GROSS DESCRIPTION Received in fixative is one container labeled with the patient's name and designated appendix. The specimen consists of an appendix measuring 7.5 cm in length and up to 1 cm in diameter. The attached periappendiceal adipose tissue measures up to 3.5 cm in width. No obvious perforation is identified. The serosal surface is focally covered with galvez, purulent exudate. The mucosa is focally congested. No fecalith is identified. Medical Device sections are submitted in two cassettes. / SJ:rg 03/24/2022 TC:2 [facility]: [id number] Patient Age/Sex Location Account Attending Physician [place] [facility] [place] [id number] Dr. Saurabh Solomon MD Signed (signatur e on file) Dr. Patrick Willis DO 03/25/22 1301 Normal [facility] Comment on above: Performed By: #### P SUIII #### [facility] [address] [place], [address] Thin prep Papanicolaou smear with manual screeningOrdered By: Dr. Moilna on 03-23-2022 Thin prep Papanicolaou smear with manual screening 23 U/L 15-37 [facility] Thin prep Papanicolaou smear with manual screening 6 5-15 [facility] Urinalysis, Completeon 03-23 EPI,SQUAMOUS 0-5 SEEN Normal 5-10 [facility] Comment on above: Order Comment: CLEAN CATCH Performed By: #### L 400.7600, [id number] #### [facility] [address] [place], [address] BACTERIA 0 SEEN Normal None Seen [facility] Comment on above: Order Comment: CLEAN CATCH Performed By: #### L 400.7600, [id number] #### [facility] [address] [place], [address] Mucus Ql (Urine sed) 0 SEEN Normal [facility] Comment on above: Order Comment: CLEAN CATCH Performed By: #### L 400.7600, [id number] #### [facility] [address] [place], [address] RBC 0 SEEN Normal 0-5 [facility] Comment on above: Order Comment: CLEAN CATCH Performed By: #### L 400.7600, [id number] #### [facility] [address] [place], [address] WBC 0 SEEN Normal 0-5 [facility] Comment on above: Order Comment: CLEAN CATCH Performed By: #### L 400.7600, [id number] #### [facility] [address] [place], [address] Urine blood detectionOrdered By: Dr. Molina on 03-23-2022 RBC Ql (U) Negative Negative [facility] RBC Ql (U) 0 SEEN /hpf 0-5 [facility] Urine clarityOrdered By: Dr. Molina on 03-23-2022 Clarity (U) Sl. Cloudy Clear [facility] Urine color determinationOrd ered By: Dr. Molina on 03-23-2022 Color (U) Yellow Yellow [facility] Urine glucose detectionOrder ed By: Dr. Molina on 03-23-2022 Glucose Ql (U) Normal mg/dl Normal [facility] Urine leukocyte esterase det ection by dipstickOrdered By: Dr. Molina on 03-23-2022 Leukocyte esterase Test strip Ql (U) Negative Negative [facility] Urine pHOrdered By: Dr. Jarrett menezes on 03-23-2022 pH (U) 6.0 [pH] 5.0 - 8.0 [facility] Urine sediment bacteria coun t by microscopy (number/high power field)Ordered By: Dr. Molina on 03-23-2022 Bacteria LM.HPF (Urine sed) [#/Area] 0 /[HPF] None Seen [facility] Urine specific gravity measu rementOrdered By: Dr. Molina on 03-23-2022 Specific gravity (U) [Rel density] 1.020 1.002-1.030 [facility] Urobilinogen Auto test strip Ql (U)Ordered By: Dr. Molina on 03-23-2022 Urobilinogen Ql (U) Normal mg/dl Normal [facility] STREPAon 02-18-2022 Group A Strep PCR Positive Abnormal Negative [facility] ([place] Comment on above: Performed By: #### S TREPA #### [address] [address] Group A Strep PCR Int Normal [facility] ([place]) Comment on above: Result Comment: Posi tive for Streptococcus pyogenes by PCR. Positive test results do not rule out co-infection with other pathogens. Test results should be interpreted in conjunction with other laboratory and clinical data. The [employer] Group A Strep Assay is a real-time polymerase chain reaction (PCR) based qualitative in vitro diagnostic test for the direct detection of Streptococcus pyogenes (Group A Beta hemolytic Streptococcus) in throat swab specimens from patients with signs and symptoms of pharyngitis. The [employer] Group A Strep Assay can be used as an aid in the diagnosis of Group A Streptococcal pharyngitis. The assay is not intended to monitor treatment for Group A Streptococcus infections. See Interp Performed By: #### S MARGY #### [address] [place], [place] [address] LABORATORYOrdered By: Lyndsay aBzan on 02-17-2022 S. pyogenes DNA EDUARDO+probe Ql (Throat) Positive *ABN* (02/17/22 7:45 PM) Invalid Interpretation Code Negative AO Auto Urine SS S. pyogenes DNA EDUARDO+probe Ql (Throat) Positive for Streptococcus pyogenes by PCR. Positive test results do not rule out co-infection with other pathogens. Test results should be interpreted in conjunction with other laboratory and clinical data.The [employer] Group A Strep Assay is a real-time polymerase chain reaction (PCR) based qualitative in vitro diagnostic test for the direct detection of Streptococcus pyogenes (Group A Beta hemolytic Streptococcus) in throat swab specimens from patients with signs and symptoms of pharyngitis.The [employer] Group A Strep Assay can be used as an aid in the diagnosis of Group A Streptococcal pharyngitis. The assay is not intended to monitor treatment for Group A Streptococcus infections. Invalid Interpretation Code AO Auto Urine SS CBC WITH AUTO DIFFERENTIALOr dered By: Saurabh Stallings on 12-14-2020 Absolute Baso # 0.0 10*3/uL 0.0 - 0.2 10*3/uL [facility] Work Phone: Absolute Neut # 8.2 10*3/uL High 1.8 - 7.0 10*3/uL [facility] Work Phone: Basophils/100 WBC (Bld) 0.3 % 0.0 - 2.0 % [facility] Work Phone: Eosinophils (Bld) [#/Vol] 0.1 10*3/uL 0.0 - 0.5 10*3/uL [facility] Work Phone: Eosinophils/100 WBC (Bld) 1.1 % 1.0 - 6.0 % [facility] Work Phone: Granulocytes/100 WBC (Bld) 68.9 % 40.0 - 80.0 % [facility] Work Phone: Hematocrit (Bld) [Volume fraction] 24.7 % Low 35.0 - 47.0 % [facility] Work Phone: Hemoglobin.gastrointesti nal spec 1 Ql (Stl) 8.1 g/dL Low 11.7 - 16.0 g/dL [facility] Work Phone: Interpretation and review of laboratory results Abnormal [employer] Work Phone: Lymphocytes (Bld) [#/Vol] 2.6 10*3/uL 1.0 - 4.3 10*3/uL [employer] Work Phone: Lymphocytes/100 WBC (Bld) 21.7 % 20.0 - 40.0 % [employer] Work Phone: MCH (RBC) [Entitic mass] 27.8 pg 26. 0 - 34.0 pg [employer] Work Phone: MCHC (RBC) [Mass/Vol] 32.6 % 32.0 - 36.0 % [facility] Work Phone: MCV (RBC) [Entitic vol] 85.3 fL 79.0 - 98.0 fL [employer] Work Phone: Monocytes (Bld) [#/Vol] 1.0 10*3/uL High 0.0 - 0.8 10*3/uL [facility] Work Phone: Monocytes/100 WBC (Bld) 8.0 % 2.0 - 10.0 % [employer] Work Phone: Platelet distribution width (Bld) [Ratio] 14.6 % High 11.5 - 14.5 % [employer] Work Phone: Platelet mean volume (Bld) [Entitic vol] 8.5 fL 7.4 - 10.4 fL [facility] Work Phone: Platelets (Bld) [#/Vol] 217 10*3/uL 140 - 440 10*3/uL [facility] Work Phone: RBC (Bld) [#/Vol] 2.90 10*6/uL Low 3.80 - 5.2 0 10*6/uL [facility] Work Phone: WBC (Bld) [#/Vol] 11.9 10*3/uL High 3.6 - 10.7 10*3/uL [facility] Work Phone: Test Performed by [facility], [address] [place], [place] [address] [facility] Work Phone: [employer] Work Phone: Hemoglobinon 12-14-2020 Hemoglobin (Bld) [Mass/Vol] 7.1 g/dL Low 11.7-16.0 [facility] Comment on above: Performed By: #### H EMGB #### [facility] [address] [place] [address] HemoglobinOrdered By: Saurabh Stallings on 12-14-2020 Hemoglobin.gastrointesti nal spec 1 Ql (Stl) 7.1 g/dL Low 11.7 - 16.0 g/dL [facility] Work Phone: Interpretation and review of laboratory results Abnormal [facility] Work Phone: Test Performed by [facility], [facility] [address] [place], [place] [address] [facility] Work Phone: [facility] Work Phone: Hemogram w/ Autodiffon 12-14 Abs Baso Cnt 0.0 10*3/uL Normal 0.0-0.2 [facility] Comment on above: Performed By: #### H EMDF #### [facility] [address] [place] [address] Abs Neutrophile Cnt 8.2 10*3/uL High 1.8-7.0 [facility] Comment on above: Performed By: #### H EMDF #### [facility] [address] [place] [address] Basophils/100 WBC (Bld) 0.3 % Normal 0.0-2.0 [facility] Comment on above: Performed By: #### H EMDF #### [facility] [address] [place] [address] Eosinophils (Bld) [#/Vol] 0.1 10*3/uL Normal 0.0-0.5 [facility] Comment on above: Performed By: #### H EMDF #### [facility] [address] [place] [address] Eosinophils/100 WBC (Bld) 1.1 % Normal 1.0-6.0 [facility] Comment on above: Performed By: #### H EMDF #### [facility] [address] [place] [address] Erythrocyte distribution width (RBC) [Ratio] 14.6 % High 11.5-14.5 [facility] Comment on above: Performed By: #### H EMDF #### [facility] [address] [place] [address] Granulocytes/100 WBC (Bld) 68.9 % Normal 40.0-80.0 [facility] Comment on above: Performed By: #### H EMDF #### [facility] [address] [place] [address] Hematocrit (Bld) [Volume fraction] 24.7 % Low 35.0-47.0 [facility] Comment on above: Performed By: #### H EMDF #### [facility] [address] [place] [address] Hemoglobin (Bld) [Mass/Vol] 8.1 g/dL Low 11.7-16.0 [facility] Comment on above: Performed By: #### H EMDF #### [facility] [address] [place] [address] Lymphocytes (Bld) [#/Vol] 2.6 10*3/uL Normal 1.0-4.3 [facility] Comment on above: Performed By: #### H EMDF #### [facility] [address] [place] [address] Lymphocytes/100 WBC (Bld) 21.7 % Normal 20.0-40.0 [facility] Comment on above: Performed By: #### H EMDF #### [facility] [address] [place] [address] MCH (RBC) [Entitic mass] 27.8 pg Normal 26.0-34.0 [facility] Comment on above: Performed By: #### H EMDF #### [facility] [address] [place] [address] MCHC 32.6 % Normal 32.0-36.0 [facility] Comment on above: Performed By: #### H EMDF #### [facility] [address] [place] [address] MCV (RBC) [Entitic vol] 85.3 fL Normal 79.0-98.0 [facility] Comment on above: Performed By: #### H EMDF #### [facility] [address] [place] [address] Monocytes (Bld) [#/Vol] 1.0 10*3/uL High 0.0-0.8 [facility] Comment on above: Performed By: #### H EMDF #### [facility] [address] [place] [address] Monocytes/100 WBC (Bld) 8.0 % Normal 2.0-10.0 [facility] Comment on above: Performed By: #### H EMDF #### [facility] [address] [place] [address] Platelet mean volume (Bld) [Entitic vol] 8.5 fL Normal 7.4-10.4 [facility] Comment on above: Performed By: #### H EMDF #### [facility] [address] [place] [address] Platelets (Bld) [#/Vol] 217 10*3/uL Normal 140-440 [facility] Comment on above: Performed By: #### H EMDF #### [facility] [address] [place] [address] RBC (Bld) [#/Vol] 2.90 10*6/uL Low 3.80-5.20 [facility] Comment on above: Performed By: #### H EMDF #### [facility] [address] [place] [address] WBC (Bld) [#/Vol] 11.9 10*3/uL High 3.6-10.7 [facility] Comment on above: Performed By: #### H EMDF #### [facility] [address] [place] [address] CBCOrdered By: Florina Bello in on 12-11-2020 Hematocrit (Bld) [Volume fraction] 35.2 % 35.0 - 47.0 % [employer] Work Phone: [phone] Hemoglobin.gastrointesti nal spec 1 Ql (Stl) 11.4 g/dL Low 11.7 - 16.0 g/dL [facility] Work Phone: Interpretation and review of laboratory results Abnormal [employer] Work Phone: MCH (RBC) [Entitic mass] 27.5 pg 26. 0 - 34.0 pg [employer] Work Phone: [phone] MCHC (RBC) [Mass/Vol] 32.5 % 32.0 - 36.0 % [facility] Work Phone: MCV (RBC) [Entitic vol] 84.6 fL 79.0 - 98.0 fL [facility] Work Phone: Platelet distribution width (Bld) [Ratio] 14.6 % High 11.5 - 14.5 % [employer] Work Phone: Platelet mean volume (Bld) [Entitic vol] 8.6 fL 7.4 - 10.4 fL [facility] Work Phone: [phone] Platelets (Bld) [#/Vol] 319 10*3/uL 140 - 440 10*3/uL [facility] Work Phone: RBC (Bld) [#/Vol] 4.15 10*6/uL 3.80 - 5.2 0 10*6/uL [facility] Work Phone: WBC (Bld) [#/Vol] 11.4 10*3/uL High 3.6 - 10.7 10*3/uL [facility] Work Phone: [phone] Test Performed by [facility], [address] [place] [address] [facility] Work Phone: [facility] Work Phone: Hemogramon 12-11-2020 Erythrocyte distribution width (RBC) [Ratio] 14.6 % High 11.5-14.5 [facility] Comment on above: Performed By: #### H EMOG #### [facility] [address] [place] [address] Hematocrit (Bld) [Volume fraction] 35.2 % Normal 35.0-47.0 [facility] Comment on above: Performed By: #### H EMOG #### [facility] [address] [place] [address] Hemoglobin (Bld) [Mass/Vol] 11.4 g/dL Low 11.7-16.0 [facility] Comment on above: Performed By: #### H EMOG #### [facility] [address] [place] [address] MCH (RBC) [Entitic mass] 27.5 pg Normal 26.0-34.0 [facility] Comment on above: Performed By: #### H EMOG #### [facility] [address] [place] [address] MCHC 32.5 % Normal 32.0-36.0 [facility] Comment on above: Performed By: #### H EMOG #### [facility] [address] [place] [address] MCV (RBC) [Entitic vol] 84.6 fL Normal 79.0-98.0 [facility] Comment on above: Performed By: #### H EMOG #### [facility] [address] [place] [address] Platelet mean volume (Bld) [Entitic vol] 8.6 fL Normal 7.4-10.4 [facility] Comment on above: Performed By: #### H EMOG #### [facility] [address] [place] [address] Platelets (Bld) [#/Vol] 319 10*3/uL Normal 140-440 [facility] Comment on above: Performed By: #### H EMOG #### [facility] [address] [place] [address] RBC (Bld) [#/Vol] 4.15 10*6/uL Normal 3.80-5.20 [facility] Comment on above: Performed By: #### H EMOG #### [facility] [address] [place] [address] WBC (Bld) [#/Vol] 11.4 10*3/uL High 3.6-10.7 [facility] Comment on above: Performed By: #### H EMOG #### [facility] [address] [place] [address] Medication Assisted Treatmen t Panelon 12-11-2020 Amphetamines Ql (U) Negative Normal [facility] Comment on above: Performed By: #### M AT #### [facility] [address] [facility] Barbiturates Negative Normal [facility] Comment on above: Performed By: #### M AT #### [facility] [address] [facility] Benzodiazepines Ql (U) Negative Normal [facility] Comment on above: Performed By: #### M AT #### [facility] [address] [facility] Buprenorphine Screen Negative Normal [facility] Comment on above: Performed By: #### M AT #### [facility] [address] [facility] Cocaine Ql (U) Negative Normal [facility] Comment on above: Performed By: #### M AT #### [facility] [address] [facility] Ethanol [Mass/Vol] Negative Normal [facility] Comment on above: Performed By: #### M AT #### [facility] [address] [facility] [place] Fentanyl Negative Normal [facility] Comment on above: Performed By: #### M AT #### [facility] [address] [facility] Methadone Ql (U) Negative Normal [facility] Comment on above: Performed By: #### M AT #### [facility] [address] [place], [place] Opiates Ql (U) Negative Normal [facility] Comment on above: Performed By: #### M AT #### [facility] [address] [place], [place] Oxycodone/Oxymorphone Negative Normal [facility] Comment on above: Performed By: #### M AT #### [facility] [address] [place], [place] PCP Negative Normal [facility] Comment on above: Performed By: #### M AT #### [facility] [address] [place], [place] THC Positive Normal [facility] Comment on above: Performed By: #### M AT #### [facility] [address] [place], [place] MAT Panel Test Comment See Below Normal [facility] Comment on above: Result Comment: The expected value for the drugs listed above is Negative. The following drugs or drug groups have been screened for by Immunoassay at the following thresholds: Amphetamine class(1000ng/mL), Barbituates(200ng/mL), Benzodiazepines(200ng/mL), Cocaine(300ng/mL), Ethanol (50 ng/mL), Methadone(300ng/mL), Opiates(300ng/mL), Oxycodone(100ng/mL), PCP(25ng/mL), Buprenorphine(5ng/mL), THC(50ng/mL), Fentanyl(2ng/mL). Positive results are NOT confirmed by a more specific alternative method unless requested. If confirmation is needed, request confirmation under separate order. NOTE: These results are for medical treatment only. Analysis performed using non-forensic procedures. Performed By: #### M AT #### [facility] [address] [place], [place] Medication Assisted Treatmen t PanelOrdered By: Florina Leslie on 12-11-2020 Amphetamines Ql (U) Negative [facility] Work Phone: Barbiturates Negative [facility] Work Phone: Benzodiazepines Ql (U) Negative [facility] Work Phone: Buprenorphine Negative [facility] Work Phone: Cocaine Ql (U) Negative [facility] Work Phone: Comment See Below [facility] Work Phone: Comment on above: The expected value f or the drugs listed above is Negative. The following drugs or drug groups have been screened for by Immunoassay at the following thresholds: Amphetamine class(1000ng/mL), Barbituates(200ng/mL), Benzodiazepines(200ng/mL), Cocaine(300ng/mL), Ethanol (50 ng/mL), Methadone(300ng/mL), Opiates(300ng/mL), Oxycodone(100ng/mL), PCP(25ng/mL), Buprenorphine(5ng/mL), THC(50ng/mL), Fentanyl(2ng/mL). Positive results are NOT confirmed by a more specific alternative method unless requested. If confirmation is needed, request confirmation under separate order. NOTE: These results are for medical treatment only. Analysis performed using non-forensic procedures. Ethanol [Mass/Vol] Negative [facility] Work Phone: Fentanyl Negative [facility] Work Phone: Methadone Ql (U) Negative [facility] Work Phone: Opiates Ql (U) Negative [facility] Work Phone: Oxycodone + Oxymorphone Negative [facility] Work Phone: PCP Negative [facility] Work Phone: THC Positive [facility] Work Phone: Test Performed by [facility], [address] [place] [address] [facility] Work Phone: [facility] Work Phone: TS GELon 12-11-2020 TS GEL ABO Group: B Rh, Gel: POS Antibody Screen Gel: NEG Normal [facility] Comment on above: Performed By: #### T SGL #### [facility] TYPE AND SCREENOrdered By: Neto Leslie on 12-11-2020 ABO Grouping B [facility] Work Phone: Rh Type Positive [facility] Work Phone: Test Performed by [facility], [address] [place], [place] [address] [employer] Work Phone: [facility] Work Phone: US OB DETAIL ANATOMY E ACH ADDITIONAL GESTATIONOrdered By: Saurabh Stallings on 09-09-2020 Patient Name: MICHOACANO WILSON Ultrasound ACCESSION EXAM DATE/TIME PROCEDURE ORDERING PROVIDER [id number] 09/09/2020 13:33 EDT US Eval/Exam MD STALLINGS DANIEL L TA Ea Addneelam CPT code 33450 Reason For Exam (US Eval/Exam TA Ea Addl) Z36.89 Encounter for Anatomic Survey Report Indication: . anatomical survey. Transabdominal images of the pelvis. Images show a single live intrauterine gestation of 27 weeks five days based on composite measurements of biparietal diameter, head circumference, abdominal circumference and femur length. cardiac motion shown at a rate of 135 beats per minutes. The placenta is posterior in position. No evidence of placenta previa. No retroplacental fluid collections. There is a normal amount of amniotic fluid. A four-chamber heart is shown. Longitudinal and transverse views of the spine show no midline spinal defect. A fluid-filled stomach and bladder in a normal position are shown. No fluid collections in the region of the kidneys to indicate hydronephrosis. Anterior abdominal wall appears intact. Four separate extremities noted. No abnormal fluid collections to indicate hydrocephalus or a fossa cyst. Three-vessel cord is difficult to delineate with grayscale images. A three-vessel cord appears present with color Doppler evaluation. IMPRESSION: Single live intrauterine gestation of 27 weeks five days based on composite measurements. Posterior placenta without evidence of previa or abruption. Normal-appearing survey. Detailed evaluation is somewhat compromised by patient body habitus. Normal amount of amniotic fluid. Report Dictated on --- Final --- Dictating Physician: MD ALVAREZ LAURA Signed Date and Time: 09/09/2020 3:45 pm Signed by: MD ALVAREZ LAURA Transcribed Date and Time: 09/09/2020 3:46 [facility] Work Phone: Jakob, [facility] Incoming Radiology Results From [facility] - 09/09/2020 3:46 PM EDT Patient Name: MICHOACANO WILSON Ultrasound ACCESSION EXAM DATE/TIME PROCEDURE ORDERING PROVIDER [id number] 09/09/2020 13:33 EDT US Eval/Exam MD STALLINGS DANIEL L TA Ea Addl CPT code 84938 Reason For Exam (US Eval/Exam TA Ea Addl) Z36.89 Encounter for Anatomic Survey Report Indication: . anatomical survey. Transabdominal images of the pelvis. Images show a single live intrauterine gestation of 27 weeks five days based on composite measurements of biparietal diameter, head circumference, abdominal circumference and femur length. cardiac motion shown at a rate of 135 beats per minutes. The placenta is posterior in position. No evidence of placenta previa. No retroplacental fluid collections. There is a normal amount of amniotic fluid. A four-chamber heart is shown. Longitudinal and transverse views of the spine show no midline spinal defect. A fluid-filled stomach and bladder in a normal position are shown. No fluid collections in the region of the kidneys to indicate hydronephrosis. Anterior abdominal wall appears intact. Four separate extremities noted. No abnormal fluid collections to indicate hydrocephalus or a fossa cyst. Three-vessel cord is difficult to delineate with grayscale images. A three-vessel cord appears present with color Doppler evaluation. IMPRESSION: Single live intrauterine gestation of 27 weeks five days based on composite measurements. Posterior placenta without evidence of previa or abruption. Normal-appearing survey. Detailed evaluation is somewhat compromised by patient body habitus. Normal amount of amniotic fluid. Report Dictated on --- Final --- Dictating Physician: MD ALVAREZ LAURA Signed Date and Time: 09/09/2020 3:45 pm Signed by: MD ALVAREZ LAURA Transcribed Date and Time: 09/09/2020 3:46 [facility] Work Phone: [facility] Work Phone: US Complete TA w/ Detail Exam Ea Aon 09-09-2020 US Complete TA w/ Detail Exam Ea A [facility]: [id number] Ul[facility] ACCESSION EXAM DATE/TIME PROCEDURE ORDERING PROVIDER [id number] 09/09/2020 13:33 EDT US Eval/Exam MD STALLINGS DANIEL L TA Ea Addl CPT code 52604 Reason For Exam (US Eval/Exam TA Ea Addl) Z36.89 Encounter for Anatomic Survey Report Indication: . anatomical survey. Transabdominal images of the pelvis. Images show a single live intrauterine gestation of 27 weeks five days based on composite measurements of biparietal diameter, head circumference, abdominal circumference and femur length. cardiac motion shown at a rate of 135 beats per minutes. The placenta is posterior in position. No evidence of placenta previa. No retroplacental fluid collections. There is a normal amount of amniotic fluid. A four-chamber heart is shown. Longitudinal and transverse views of the spine show no midline spinal defect. A fluid-filled stomach and bladder in a normal position are shown. No fluid collections in the region of the kidneys to indicate hydronephrosis. Anterior abdominal wall appears intact. Four separate extremities noted. No abnormal fluid collections to indicate hydrocephalus or a fossa cyst. Three-vessel cord is difficult to delineate with grayscale images. A three-vessel cord appears present with color Doppler evaluation. IMPRESSION: Single live intrauterine gestation of 27 weeks five days based on composite measurements. Posterior placenta without evidence of previa or abruption. Normal-appearing survey. Detailed evaluation is somewhat compromised by patient body habitus. Normal amount of amniotic fluid. Report Dictated on Final Dictating Physician: MD ALVAREZ LAURA Signed Date and Time: 09/09/2020 3:45 pm Signed by: MD ALVAREZ LAURA Transcribed Date and Time: 09/09/2020 3:46 [facility] (MIN 3 VIEWS)o n 11-12-2018 Patient Name: MICHOACANO WILSON ---Diagnostic Radiology--- Exam Date/Time 11/12/2018 16:29:32 EDT Exam CR Ankle 3+ Views Left Ordering Physician CHANELLE MCGEE AMANDA A. Accession Number [id number] CPT4 Codes 48239 () Reason For Exam lat mal pain, twisting injury Report LEFT ANKLE 3 VIEWS CLINICAL INDICATION: lat mal pain, twisting injury TECHNIQUE: 3 views of the left ankle. COMPARISON: None. FINDINGS: No acute fracture or dislocation. Ankle mortise maintained. Lateral soft tissue edema. IMPRESSION: 1. No acute osseous abnormality. 2. Soft tissue edema. Report Dictated on Workstation: MICHELLE --- Final --- Dictating Physician: MD GOMEZ WENDELL Signed Date and Time: 11/12/2018 4:46 pm Signed by: MD GOMEZ WENDELL Transcribed Date and Time: 11/12/2018 4:47 [place], [place] [facility], [facility] Incoming [facility] Results From [facility] - 11/12/2018 4:47 PM EDT Patient Name: MICHOACANO WILSON ---Diagnostic Radiology--- Exam Date/Time 11/12/2018 16:29:32 EDT Exam CR Ankle 3+ Views Left Ordering Physician CHANELLE MCGEE AMANDA A. Accession Number [id number] CPT4 Codes 21886 () Reason For Exam lat mal pain, twisting injury Report LEFT ANKLE 3 VIEWS CLINICAL INDICATION: lat mal pain, twisting injury TECHNIQUE: 3 views of the left ankle. COMPARISON: None. FINDINGS: No acute fracture or dislocation. Ankle mortise maintained. Lateral soft tissue edema. IMPRESSION: 1. No acute osseous abnormality. 2. Soft tissue edema. Report Dictated on Workstation: MICHELLE --- Final --- Dictating Physician: MD GOMEZ WENDELL Signed Date and Time: 11/12/2018 4:46 pm Signed by: MD GOMEZ WENDELL Transcribed Date and Time: 11/12/2018 4:47 [facility] [place] Vital Signs Date Time Vital Sign Value Performing Clinician Facility 06-06-2024 09:51-0400 Body height 167.6 cm Aria Moon DIGITAL SALES ASSISTANT - HEAD DOFFER Work Phone: [facility] [employer] 06-06-2024 09:51-0400 Body mass index (BMI) [Ratio] 52.39 kg/m2 Aria Moon DIGITAL SALES ASSISTANT - HEAD DOFFER Work Phone: [facility] [employer] 06-06-2024 09:51-0400 Body weight 147.24 kg Aria Moon DIGITAL SALES ASSISTANT - HEAD DOFFER Work Phone: [facility] [employer] 06-06-2024 09:51-0400 Diastolic blood pressure 94 mm[Hg] Aria Moon DIGITAL SALES ASSISTANT - HEAD DOFFER Work Phone: [facility] [employer] 06-06-2024 09:51-0400 Heart rate 88 /min Aria Moon DIGITAL SALES ASSISTANT - HEAD DOFFER Work Phone: [facility] [employer] 06-06-2024 09:51-0400 Systolic blood pressure 114 mm[Hg] Aria Moon DIGITAL SALES ASSISTANT - HEAD DOFFER Work Phone: [facility] [employer] 2024 09:15-0500 Body mass index (BMI) [Ratio] 54.43 kg/m2 Gypsy Rice RD Work Phone: [facility] [employer] 2024 09:15-0500 Body weight 152.[address] Work Phone: [facility] [employer] 02-07-2024 11:33-0500 Body height 167.6 cm Cassandra Pozsgay DO Work Phone: [facility] [employer] 02-07-2024 11:33-0500 Body mass index (BMI) [Ratio] 56.1 kg/m2 Cassandra Pozsgay DO Work Phone: [facility] [employer] 02-07-2024 11:33-0500 Body temperature 97.5 [degF] Cassandra Pozsgay DO Work Phone: [facility] [employer] 02-07-2024 11:33-0500 Body weight 157.67 kg Cassandra Pozsgay DO Work Phone: [facility] [employer] 02-07-2024 11:33-0500 Diastolic blood pressure 73 mm[Hg] Cassandra Pozsgay DO Work Phone: [facility] 02-07-2024 11:33-0500 Heart rate 64 /min Cassandra Pozsgay DO Work Phone: [facility] 02-07-2024 11:33-0500 Respiratory rate 18 /min Cassandra Pozsgay DO Work Phone: [facility] 02-07-2024 11:33-0500 Systolic blood pressure 109 mm[Hg] Cassandra Pozsgay DO Work Phone: [facility] 03-30-2022 14:56-0500 Body height 170.2 cm Saurabh Solomon MD Work Phone: [facility] 03-30-2022 14:56-0500 Body temperature 98.29 [degF] Saurabh Solomon MD Work Phone: [facility] 03-30-2022 14:56-0500 Body weight 143.61 kg Saurabh Solomon MD Work Phone: [facility] 03-30-2022 14:56-0500 Diastolic blood pressure 64 mm[Hg] Saurabh Solomon MD Work Phone: [facility] 03-30-2022 14:56-0500 Heart rate 120 /min Saurabh Solomon MD Work Phone: [facility] 03-30-2022 14:56-0500 SaO2% (BldA) [Mass fraction] 100 % Saurabh Solomon MD Work Phone: [facility] 03-30-2022 14:56-0500 Systolic blood pressure 118 mm[Hg] Saurabh Solomon MD Work Phone: [facility] 03-23-2022 17:22-0500 Diastolic blood pressure 66 mm[Hg] [facility] 03-23-2022 17:22-0500 Heart rate 81 /min [facility] 03-23-2022 17:22-0500 Respiratory rate 16 /min [facility] 03-23-2022 17:22-0500 SaO2% (BldA) [Mass fraction] 94 % [facility] 03-23-2022 17:22-0500 Systolic blood pressure 103 mm[Hg] [facility] 03-23-2022 15:12-0500 Body temperature 97.6 [degF] [facility] 03-23-2022 12:09-0500 Body height 170.18 cm [facility] 03-23-2022 12:09-0500 Body mass index (BMI) [Ratio] 49.3 kg/m2 [facility] 03-23-2022 12:09-0500 Body temperature 98.3 [degF] [facility] 03-23-2022 12:09-0500 Body weight 142.88 kg [facility] 03-23-2022 12:09-0500 Diastolic blood pressure 87 mm[Hg] [facility] 03-23-2022 12:09-0500 Heart rate 87 /min [facility] 03-23-2022 12:09-0500 Respiratory rate 18 /min [facility] 03-23-2022 12:09-0500 SaO2% (BldA) [Mass fraction] 98 % [facility] 03-23-2022 12:09-0500 Systolic blood pressure 128 mm[Hg] [facility] 03-23-2022 09:00-0500 Body temperature 97.11 [degF] Lencho Moyer DIGITAL SALES ASSISTANT.HEAD DOFFER Work Phone: [facility] 03-23-2022 09:00-0500 Body weight 142.97 kg Lencho Moyer DIGITAL SALES ASSISTANT.HEAD DOFFER Work Phone: [facility] 03-23-2022 09:00-0500 Diastolic blood pressure 70 mm[Hg] Lencho Moyer DIGITAL SALES ASSISTANT.HEAD DOFFER Work Phone: [facility] 03-23-2022 09:00-0500 Heart rate 75 /min Lencho Moyer DIGITAL SALES ASSISTANT.HEAD DOFFER Work Phone: [facility] 03-23-2022 09:00-0500 Respiratory rate 20 /min Lencho Moyer DIGITAL SALES ASSISTANT.HEAD DOFFER Work Phone: [facility] 03-23-2022 09:00-0500 SaO2% (BldA) [Mass fraction] 100 % Lencho Moyer DIGITAL SALES ASSISTANT.HEAD DOFFER Work Phone: [facility] 03-23-2022 09:00-0500 Systolic blood pressure 110 mm[Hg] Lencho Moyer DIGITAL SALES ASSISTANT.HEAD DOFFER Work Phone: [facility] 02-17-2022 20:19-0500 Body temperature 99.32 [degF] SINGH REICHFIELD DO [facility] 02-17-2022 20:19-0500 Diastolic Blood Pressure Non-Invasive 83 1 SNIGH REICHFIELD DO [facility] 02-17-2022 20:19-0500 Heart rate 103 /min SINGH REICHFIELD DO [facility] 02-17-2022 20:19-0500 Systolic Blood Pressure Non-Invasive 126 1 SINGH REICHFIELD DO [facility] 02-17-2022 17:08-0500 Body temperature 98.96 [degF] SINGH REICHFIELD DO [facility] 02-17-2022 17:08-0500 Diastolic Blood Pressure Non-Invasive 78 1 SINGH REICHFIELD DO [facility] 02-17-2022 17:08-0500 Heart rate 102 /min SINGH REICHFIELD DO [facility] 02-17-2022 17:08-0500 Respiratory rate 18 /min SINGH REICHFIELD DO [facility] 02-17-2022 17:08-0500 Systolic Blood Pressure Non-Invasive 116 1 SINGH REICHFIELD DO [facility] 12-16-2020 07:48-0400 Body temperature 98.8 [degF] Saurabh Stallings MD [facility] Work Phone: 12-16-2020 07:48-0400 Diastolic blood pressure 59 mm[Hg] Saurabh Stallings MD [facility] Phone: [facility] Work Phone: 12-16-2020 07:48-0400 Heart rate 74 /min Saurabh Stallings MD Work Phone: [facility] Work Phone: 12-16-2020 07:48-0400 Respiratory rate 16 /min Saurabh Stallings MD Work Phone[facility] Work Phone: 12-16-2020 07:48-0400 Systolic blood pressure 121 mm[Hg] Saurabh Stallings MD [facility] Phone[facility] Work Phone: 12-14-2020 03:16-0400 SaO2% (BldA) [Mass fraction] 98 % Saurabh Stallings MD [facility] Phone: [facility] Work Phone: 12-11-2020 08:30-0400 Body height 166.4 cm Saurabh Stallings MD [facility] Phone[facility] Work Phone: 12-11-2020 08:30-0400 Body mass index (BMI) [Ratio] 51.95 kg/m2 Saurabh Stallings MD [facility] Phone[facility] Work Phone: 12-11-2020 08:30-0400 Body weight 143.79 kg Saurabh Stallings MD [facility] Phone[facility] Work Phone: 11-12-2018 17:17-0400 Body Temperature 98.01 [degF] [facility] [place] 11-12-2018 17:17-0400 BP Diastolic 78 mm[Hg] [facility] [place] [facility] [place] 09-07-2019 17:17-0400 BP Systolic 115 mm[Hg] Eugene Pires [facility] , [place] 11-12-2018 17:17-0400 Pulse (Heart Rate) 78 /min [facility] [place] [place] 11-12-2018 17:17-0400 Respiratory Rate 18 /min [facility], [place] 11-12-2018 15:59-0400 BMI (Body Mass Index) 45.89 kg/m2 Eugene Jerry [facility], [place] 11-12-2018 15:59-0400 Body weight 127.01 kg Eugene Pires [facility] , [place] 11-12-2018 15:59-0400 Pulse Oximetry 97 % [facility] [place] Encounters Encounter Date Encounter Type Care Provider Facility Start: 09-01-2024 End: 09-01-2024 Telephone encounter Silva Macedo RN [facility] Comment on above: Appointment Start: 06-06-2024 End: 06-06-2024 Office outpatient new 45 minutes Aria Moon DIGITAL SALES ASSISTANT - HEAD DOFFER Work Phone: [facility] Comment on above: GERD without esophag itis (Primary Dx); Morbid obesity with BMI of 50.0-59.9, adult (HCC); Tobacco abuse Start: 06-06-2024 End: 06-06-2024 ambulatory ARIA MOON [facility] Start: 05-24-2024 End: 05-24-2024 ambulatory SARA ORELLANAN [facility] Start: 05-24-2024 End: 05-24-2024 Encounter for other preprocedural examination SARA ORELLANAN [facility] Start: 2024 End: 2024 Clinical Support Cassandra Voss DO Work Phone: [facility] Comment on above: BMI 50.0-59.9, adult (HCC) (Primary Dx) Start: 04-17-2024 End: 05-10-2024 Telephone encounter Aria Moon APRN - HEAD DOFFER Work Phone: [facility] Comment on above: Cancelled Appointmen t (Reschedule appointment 04/18/24) Start: 02-07-2024 End: 02-07-2024 Telephone encounter Silva Castillo APRN - HEAD DOFFER Work Phone: [facility] [employer] [facility] Somers Comment on above: Other (Financial Eloy e 2023); Surgery Scheduling (Initial scheduling-orders placed) Start: 02-07-2024 End: 02-07-2024 Office outpatient new 45 minutes Cassandra Garciamarlyn DO Work Phone: [facility] [employer] [facility] Comment on above: Morbid obesity with BMI of 50.0-59.9, adult (HCC) (Primary Dx) Start: 02-07-2024 End: 02-07-2024 [facility] Start: 04-18-2023 ambulatory Saurabh worrell MD Work Phone: General Surgery Comment on above: Question regarding P T ED PATIENT INFORMATION Start: 04-18-2023 End: 04-18-2023 Emergency department patient visit Facility:[id number] Start: 03-30-2022 End: 03-30-2022 Patient encounter procedure Saurabh Solomon MD Work Phone: General Surgery Comment on above: Aftercare (Primary D x) Start: 03-23-2022 End: 03-23-2022 Admission to same day surgery center [facility] Start: 03-23-2022 End: 03-23-2022 ambulatory Saurabh Solomon Facility:[facility] Start: 03-23-2022 End: 03-23-2022 Emergency department patient visit [facility] Start: 03-23-2022 End: 03-23-2022 Patient encounter procedure Lencho Moyer APRN.HEAD DOFFER Work Phone: [facility] Comment on above: Abdominal pain, righ t lower quadrant (Primary Dx) Start: 02-17-2022 End: 02-17-2022 Emergency department patient visit SINGH MERA DO [facility] Start: 02-07-2022 End: 02-07-2022 Emergency department patient visit JUAN RAMON BRADY Facility:B Start: 12-11-2020 End: 12-16-2020 Evaluation and management of inpatient Saurabh Stallings MD Work Phone: [facility] Maternity Comment on above: S/P section (Primary Dx) Start: 09-09-2020 End: 09-09-2020 Subsequent hospital visit by physician Saurabh Stallings MD Work Phone: [facility] Ultrasound Comment on above: Arrived Start: 11-12-2018 End: 11-12-2018 Emergency department patient visit Eugene Pires [facility] [place] [facility] Comment on above: Sprain of left ankle , unspecified ligament, initial encounter (Primary Dx) Procedures Date Procedure Procedure Detail Performing Clinician Start: 03-23-2022 Laparoscopic appendectomy Start: 03-23-2022 Computed tomography of abdomen and pelvis with intravenous contrast Start: 12-14-2020 End: 12-14-2020 Blood count hemoglobin Saurabh Stallings MD Work Phone: Start: 12-11-2020 Antibody screen Saurabh Stallings MD Work Phone: Start: 12-11-2020 MEDICATION ASSISTED TREATMENT PANEL Florina Leslie MD Work Phone: Start: 12-11-2020 Blood count complete automated Florina Leslie MD Work Phone: Start: 12-11-2020 Blood typing serolog ic abo Florina Leslie MD Work Phone: Start: 12-11-2020 US OB LIMITED - UNIT PERFORMED Florina Leslie MD Work Phone: Start: 09-09-2020 Us preg uterus detai l janet exam ea gestat Saurabh Satllings MD Work Phone: Start: 11-12-2018 Radex ankle complete minimum 3 views Radha Mcgee Work Phone: H/O: section S/P sectio n Saurabh Stallings MD Work Phone: Tonsillectomy SINGH JOSHI DO Plan of Treatment Date Care Activity Detail Author Start: 2073 RSV Immunization for Adults (1 - 1-dose 75+ series) RSV Immunization for Adults (1 - 1-dose 75+ series) [facility] Start: 2048 Zoster Vaccines (1 of 2) Zoste r Vaccines (1 of 2) [facility] Start: 12-09-2025 DTaP/Tdap/Td vaccine (2 - Td) DTaP/Tdap/Td vaccine (2 - Td) [place] Start: 12-09-2025 DTaP/Tdap/Td vaccine (7 - Td or Tdap) DTaP/Tdap/Td vaccine (7 - Td or Tdap) [facility] Work Phone: Start: 12-09-2025 DTaP/Tdap/Td Vaccine s (7 - Td or Tdap) DTaP/Tdap/Td Vaccines (7 - Td or Tdap) [facility] Start: 12-09-2025 Urine microalbumin profile DTa P,Tdap,Td Vaccine (7 - Td or Tdap) [facility] Start: 11-06-2024 Influenza vaccination Influenz a Vaccine (Season Ended) [facility] Start: 07-11-2024 End: 07-11-2024 Patient encounter procedure 07/11/2024 12:30 PM EDT Office Visit [facility] Weight Management [facility] [address] [place] [address] [place] [address] Aria Moon, DIGITAL SALES ASSISTANT - HEAD DOFFER [address] [place] [address] [facility] Weight [facility] Start: 05-22-2024 End: 05-22-2024 Patient encounter procedure 05/22/2024 9:10 AM EDT Office Visit [facility] [place] [address] [place] [phone] Heaven Carrero, DIGITAL SALES ASSISTANT - HEAD DOFFER [address] [place] [address] [facility] [place] Start: 05-16-2024 End: 05-16-2024 Patient encounter procedure 05/16/2024 10:00 AM EDT [facility] [place] [address] [place] [address] Aria Moon, DIGITAL SALES ASSISTANT - HEAD DOFFER [address] [place] [address] [facility] [place] Start: 2024 End: 2024 Clinical Support 2024 8:30 AM EST Clinical Support [facility] [place] [address] [place] [address] Cassandra Voss DO [address] [place] [address] [place] [address] [facility] [place] Start: 04-19-2024 End: 04-19-2024 Patient encounter procedure 04/19/2024 9:45 AM EST [facility] [place] [address] [place] [phone] Ronal Harris MD [address] [place] [address] [facility] [place] Start: 04-18-2024 End: 04-18-2024 Patient encounter procedure 04/18/2024 10:00 AM EST [facility] [place] [address] [place] [address] [place] [address] Aria Moon APRN - HEAD DOFFER [address] [place] [address] [facility] [place] Start: 04-07-2024 End: 04-07-2024 Patient encounter procedure 04/07/2024 10:00 AM EST Office Visit [facility] [employer] [facility] [place] [address] [place] [address] Radha Kim PA-C [address] [place] [address] [facility] [employer] [facility] [place] Start: 02-22-2024 End: 02-07-2025 25-hydroxyvitamin D3 [Mass/volume] in Serum or Plasma Vitamin D Deficiency Screening (Vit D 25) Lab Routine Morbid obesity with BMI of 50.0-59.9, adult ([facility]) Expected: 02/22/2024 (Approximate), Expires: 02/07/2025 [employer] Comment on above: Expected: 02/22/2024 (Approximate), Expires: 02/07/2025 Start: 02-22-2024 End: 02-07-2025 CBC panel - Blood by Automated count CBC Lab Routine Morbid obesity with BMI of 50.0-59.9, adult (CMS/HCC) Expected: 02/22/2024 (Approximate), Expires: 02/07/2025 [employer] Comment on above: Expected: 02/22/2024 (Approximate), Expires: 02/07/2025 Start: 02-22-2024 End: 02-07-2025 Cobalamin (Vitamin B12) [Mass/volume] in Serum or Plasma Vitamin B12 Lab Routine Morbid obesity with BMI of 50.0-59.9, adult (CMS/HCC) Expected: 02/22/2024 (Approximate), Expires: 02/07/2025 [employer] Comment on above: Expected: 02/22/2024 (Approximate), Expires: 02/07/2025 Start: 02-22-2024 End: 02-07-2025 Comprehensive metabolic 1998 panel - Serum or Plasma Comprehensive metabolic panel Lab Routine Morbid obesity with BMI of 50.0-59.9, adult (CMS/HCC) Expected: 02/22/2024 (Approximate), Expires: 02/07/2025 [facility] Comment on above: Expected: 02/22/2024 (Approximate), Expires: 02/07/2025 Start: 02-22-2024 End: 02-07-2025 Ferritin [Mass/volume] in Serum or Plasma Ferritin Lab Routine Morbid obesity with BMI of 50.0-59.9, adult ([facility]/HCC) Expected: 02/22/2024 (Approximate), Expires: 02/07/2025 [facility] Comment on above: Expected: 02/22/2024 (Approximate), Expires: 02/07/2025 Start: 02-22-2024 End: 02-07-2025 Folate [Mass/volume] in Serum or Plasma Folate Lab Routine Morbid obesity with BMI of 50.0-59.9, adult ([facility]) Expected: 02/22/2024 (Approximate), Expires: 02/07/2025 [facility] [employer] Comment on above: Expected: 02/22/2024 (Approximate), Expires: 02/07/2025 Start: 02-22-2024 End: 02-07-2025 Hemoglobin A1c measurement Hemoglobin A1c Lab Routine Morbid obesity with BMI of 50.0-59.9, adult ([facility]) Expected: 02/22/2024 (Approximate), Expires: 02/07/2025 [facility] [employer] Work Phone: Comment on above: Expected: 02/22/2024 (Approximate), Expires: 02/07/2025 Start: 02-22-2024 End: 02-07-2025 Iron and Iron binding capacity panel - Serum or Plasma Iron Lab Routine Morbid obesity with BMI of 50.0-59.9, adult ([facility]) Expected: 02/22/2024 (Approximate), Expires: 02/07/2025 [facility] [employer] Comment on above: Expected: 02/22/2024 (Approximate), Expires: 02/07/2025 Start: 02-22-2024 End: 02-07-2025 Lipid 1996 panel - Serum or Plasma Lipid panel Lab Routine Morbid obesity with BMI of 50.0-59.9, adult ([facility]) Expected: 02/22/2024 (Approximate), Expires: 02/07/2025 [facility] [employer] Comment on above: Expected: 02/22/2024 (Approximate), Expires: 02/07/2025 Start: 02-22-2024 End: 02-07-2025 Magnesium [Mass/volume] in Serum or Plasma Magnesium Lab Routine Morbid obesity with BMI of 50.0-59.9, adult ([facility]) Expected: 02/22/2024 (Approximate), Expires: 02/07/2025 [employer] Comment on above: Expected: 02/22/2024 (Approximate), Expires: 02/07/2025 Start: 02-22-2024 End: 02-07-2025 Thyrotropin [Units/volume] in Serum or Plasma TSH Lab Routine Morbid obesity with BMI of 50.0-59.9, adult ([facility]) Expected: 02/22/2024 (Approximate), Expires: 02/07/2025 [employer] Comment on above: Expected: 02/22/2024 (Approximate), Expires: 02/07/2025 Start: 02-22-2024 End: 02-07-2025 US Abdomen US abdomen complete Imaging Routine Morbid obesity with BMI of 50.0-59.9, adult ([facility]) Expected: 02/22/2024, Expires: 02/07/2025 [employer] Comment on above: Expected: 02/22/2024 , Expires: 02/07/2025 Start: 02-22-2024 End: 02-07-2025 Vitamin B1, whole blood ([facility]) Vitamin B1, whole blood ([facility]) Lab Routine Morbid obesity with BMI of 50.0-59.9, adult ([facility]) Expected: 02/22/2024 (Approximate), Expires: 02/07/2025 [employer] Comment on above: Expected: 02/22/2024 (Approximate), Expires: 02/07/2025 Start: 02-22-2024 End: 02-07-2025 XR Abdomen and RF Gastrointestinal tract upper W contrast PO FL upper GI w KUB Imaging Routine Morbid obesity with BMI of 50.0-59.9, adult ([facility]) Expected: 02/22/2024, Expires: 02/07/2025 [employer] Comment on above: Expected: 02/22/2024 , Expires: 02/07/2025 Start: 02-22-2024 End: 02-07-2025 Zinc (Sendout) Zinc (Sendout) Lab Routine Morbid obesity with BMI of 50.0-59.9, adult (CMS/HCC) Expected: 02/22/2024 (Approximate), Expires: 02/07/2025 [facility] Comment on above: Expected: 02/22/2024 (Approximate), Expires: 02/07/2025 Start: 11-07-2023 COVID-19 Vaccine ( season) COVID-19 Vaccine ( season) [facility] Start: 11-07-2023 Influenza vaccination Influenza Vacc ine (#1) [facility] Start: 03-08-2023 Depression Assessment Depression Ass [facility] Start: 11-06-2022 Influenza vaccination Influenza Vacc ine (#1) [facility] Start: 03-23-2022 [facility] Start: 03-23-2022 Laparoscopic appendectomy Lapa roscopic, Appendectomy (Not Applicable) [facility] Start: 03-08-2022 DEPRESSION ASSESSMENT DEPRESSION ASS [facility] Start: 11-06-2021 Influenza vaccination INFLUENZA (#1) [facility] Start: 11-06-2020 Influenza vaccination Flu vaccine (# 1) [facility] Work Phone: Start: 05-10-2019 PAP TESTING PAP TESTING [facility] Start: 05-10-2019 Screening for malign ant neoplasm of cervix [facility] Start: 11-06-2018 Influenza vaccination Flu vaccine (# 1) [place], [place] Start: 2017 Pneumococcal Vaccine : Pediatrics (0 to 5 Years) and At-Risk Patients (6 to 49 Years) (1 of 2 - PCV) Pneumococcal Vaccine: Pediatrics (0 to 5 Years) and At-Risk Patients (6 to 49 Years) (1 of 2 - PCV) [facility] Start: 2017 Urine microalbumin profile DTAP,TDAP ,TD (1 - Tdap) [facility] Start: 2016 CHLAMYDIA SCREENING (18-24) CHLAMYDIA SCREENING (18-24) [facility] Start: 2016 GC (GONORRHEA) SCREE JEANNETTE (18-24) GC (GONORRHEA) SCREENING (18-24) [facility] Start: 2016 HEPATITIS C SCREENING HEPATITIS C [facility] Start: 2016 Hepatitis C screening Hepatitis C [facility] Start: 2016 HIV SCREENING HIV SCREENING [facility] Start: 2016 HIV screening HIV Screening [facility] Start: 01-07-2016 Varicella vaccination Varicell a Vaccines (2 of 2 - 13+ 2-dose series) [facility] Start: 01-07-2016 Varicella Vaccine (2 of 2 - 13+ 2-dose series) Varicella Vaccine (2 of 2 - 13+ 2-dose series) [place] Start: 2014 Chlamydia screen Chlamydia screen [place], [place] Start: 2014 Meningococcal B Vacc ine: Consider Based On Risk (1 of 2 - Patient Seeks Protection) Meningococcal B Vaccine: Consider Based On Risk (1 of 2 - Patient Seeks Protection) [facility] Start: 2014 Screening for Chlamy ike trachomatis Chlamydia screen [facility] Work Phone: Start: 2013 HIV screen HIV screen [place], [place] Start: 2013 HIV screening HIV screen [facility] Work Phone: Start: 2013 HPV vaccine (1 - Fem jacobo 3-dose series) HPV vaccine (1 - Female 3-dose series) [place] Start: 2013 HPV Vaccines (1 - 3- dose series) HPV Vaccines (1 - 3-dose series) [facility] Start: 2012 PEDS TO ADULT TRANSI TION ANNUAL ASSESSMENT PEDS TO ADULT TRANSITION ANNUAL ASSESSMENT [facility] Start: 2010 COVID-19 Vaccine (1) COVID-19 Vaccin e (1) [facility] Work [facility]: Start: 2010 Depression Screening Depression Scre ening [facility] Start: 2010 PEDS TO ADULT TRANSI TION INITIAL DISCUSSION PEDS TO ADULT TRANSITION INITIAL DISCUSSION [facility] Start: 2009 HPV vaccine (1 - 2-d ose series) HPV vaccine (1 - 2-dose series) [facility] Start: 2008 MENINGOCOCCAL B: 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 (1 of 2 - Risk Bexsero 2-dose series) MENINGOCOCCAL B: Consider based on risk (1 of 2 - Risk Bexsero 2-dose series) [facility] Start: 05-10-2007 HPV Vaccine (1 - 2-d ose series) HPV Vaccine (1 - 2-dose series) [facility] Start: 2004 Pneumococcal Vaccine : Pediatrics (0 to 5 Years) and At-Risk Patients (6 to 64 Years) (1 of 2 - PCV) Pneumococcal Vaccine: Pediatrics (0 to 5 Years) and At-Risk Patients (6 to 64 Years) (1 of 2 - PCV) [facility] Start: 1998 COVID-19 VACCINE (#1) COVID-19 VACCI NE (#1) [facility] Start: 1998 HEPATITIS B (1 of 3 - 3-dose series) HEPATITIS B (1 of 3 - 3-dose series) [facility] Start: 1998 Hepatitis C screening Hepatitis C sc reen [facility] Work Phone: Start: 1998 HIV screening HIV Screening [facility] Start: 1998 Lipid panel Lipid Panel [facility] Nonrebreather mask oxygen [facility] Work Phone: Comment on above: As directed - RT (WY N) until discontinued starting 12/11/2020 As directed - RT (W[place] N) until discontinued starting 12/13/2020 Oxygen therapy [[facility] Data Set] Initiate Oxygen Therapy Protocol Respiratory Care Routine Daily until discontinued starting 12/13/2020 [facility] Work Phone: Comment on above: Daily until disconti nued starting 12/13/2020 Patient referral [facility] Work Phone: Spirometry panel Incentive nanette metry Respiratory Care Routine Every 2hr while awake until discontinued starting 12/13/2020 [facility] Work Phone: Comment on above: Every 2hr while awak e until discontinued starting 12/13/2020 Immunizations Immunization Date Immunization Notes Care Provider Jt alicia 12-13-2020 diphtheria, tetanus toxoids and acellular pertussis vaccine, unspecified formulation Saurabh Stallings MD Work Phone: [facility] Work Phone: 12-13-2020 measles, mumps and rubella virus vaccine Saurabh Stallings MD Work Phone: [facility] Work Phone: 12-10-2015 meningococcal polysaccharide (groups A, C, Y and W-135) diphtheria toxoid conjugate vaccine (MCV4P) [place], [place] 12-10-2015 tetanus toxoid, redu addie diphtheria toxoid, and acellular pertussis vaccine, adsorbed [facility] 12-10-2015 varicella virus vaccine Eugene [facility], [place] Payers Date Payer Category Payer Medicaid [place] [employer] [place] [id number] 2022 Self-pay 2022 Medicaid [id number] 2022 Unknown [id number] 2018 Unknown [facility] HEALTH [facility]AN xxxxxxxxxxx 2018-Present [phone] [address] [place] [id number] xxxxxxxxxxx [id number] 2018 Unknown [facility] HEALTH PLAN [id number] 2018-Present [phone] [address] [place] [address] [id number] 1998 Unknown [id number] 1998 Unknown [id number] Unknown [id number] Social History Date Type Detail Facility Start: 11-12-2018 End: 03-23-2022 Tobacco smoking status NHIS Never smoker [facility] Start: 03-08-2022 History of tobacco use Cigarette Smoker [place] Start: 11-12-2018 End: 06-06-2024 Alcohol intake No [place] Start: 1998 Sex Assigned At Not on file M [place], [place] Start: 11-12-2018 End: 06-06-2024 Tobacco use and exposure Never used [facility] Start: 11-12-2018 End: 12-13-2020 Alcohol intake Current non-drinker of alcohol (finding) [employer] Phone: Start: 11-12-2018 End: 06-06-2024 [facility] intake [facility]: Exposure to SARS-CoV-2 (event) Not sure [facility] Start: 2000 Sex Assigned At Female A [facility] Start: 03-23-2022 Tobacco smoking status COIS Unknown if ever smoked [facility] History of tobacco use Passive smoker [facility] Start: 03-30-2022 End: 06-06-2024 Alcohol intake Ex-drinker (finding) [facility] National Score (1-100), lower number is lower risk 92 [facility] Start: 03-08-2022 Tobacco smoking status COIS Smokes tobacco daily [facility] Start: 02-07-2024 Alcoholic beverage intake Current drinker of alcohol (finding) [facility] Start: 10-06-2021 Sex Female (finding) [facility] Start: 06-06-2024 Tobacco smoking status NHIS Ex-smoker [facility] Start: 03-08-2022 History of tobacco use Current smoker [facility] NEGATED: Highlighted row [facility] Goals Date Patient Goal Desired Activity /State Functional Status Date Assessment Result Facility 02-17-2022 Functional Status Awake, Repositions self, Resting [facility] Mental Status Date Assessment Result Facility 03-23-2022 Cognitive function Voice/Name [facility] Work Phone: 02-17-2022 Mental Status Oriented x 4 [facility] Clinical Notes 12-16-2020 to 09-01-2024 Telephone Encounter - RENEE Jesus CNP - 09/01/2024 10:36 AM EDTTelephone Encounter - ERNEE Jesus CNP - 09/01/2024 10:36 AM EDTJhonny Simpson MA - 06/06/2024 10:00 AM EDT Note Date & Type Note Facility 09-01-2024 Telephone encounter Note Hi! I am happy to see her, but will forward to surgical MATT/Management to determine if program hold is appropriate. Thank you! [facility] 09-01-2024 Miscellaneous Notes Hi! I am happy to see her, but will forward to surgical MATT/Management to determine if program hold is appropriate. Thank you! Thanks Silva! Forwarding to Nj/Alex so they can check with Aria and see if she should be rescheduled or on a 6M/1Yr hold. Images from the original note were not included. MP Pt called and left message that was very broken and difficult to understand. Was able to make out something about broken phone and that she was to have appt today at 8:30 but was told it was on the 24th. Pt asking for call back. Noted that pt did have appt that she was a no show for, the last two times. Will route to FDT to contact pt and address. documented in this encounter [facility] 09-01-2024 Telephone encounter Note Thanks Silva! Forwarding to Nj/Alex so they can check with Aria and see if she should be rescheduled or on a 6M/1Yr hold. [facility] 09-01-2024 Telephone encounter Note Images from the original note were not included. MP Pt called and left message that was very broken and difficult to understand. Was able to make out something about broken phone and that she was to have appt today at 8:30 but was told it was on the 24th. Pt asking for call back. Noted that pt did have appt that she was a no show for, the last two times. Will route to FDT to contact pt and address. [facility] 06-06-2024 History of Presen t illness Narrative [facility] SURGICAL WEIGHT LOSS MANAGEMENT PROGRAM PHYSICIAN SUPERVISED DIET AND EXERCISE SURGICAL PREPARATORY REGIMEN PROGRESS NOTE INITIAL EVALUATION Patient: Michoacano Wilson Service Date: @TODAY@ Date of : 2000 Navigation Plan: Patient History/Assessment Summary: The patient is a pleasant 24 y.o. year old female, who stands Height: 5' 6 (167.6 cm) tall with a weight of Weight: (!) 324 lb 9.6 oz (147 kg) pounds, resulting in a BMI of Body mass index is 52.39 kg/m . kg/m2. She has been overweight for years, has tried and failed multiple previous diet attempts, and is now in the process of undergoing evaluation for surgical treatment of their obesity and related comorbidities, including GERD and Obesity. She is here today to initiate monthly physician supervised diet and exercise as part of their surgical preparatory regimen. History: Past Medical History: Diagnosis Date ADHD (attention deficit hyperactivity disorder) Anxiety panic attacks Depression Morbid obesity, unspecified obesity type (HCC) 02/02/2024 Obesity Snoring Past Surgical History: Procedure Laterality Date APPENDECTOMY 2022 SECTION, CLASSIC 2020 TONSILLECTOMY AND ADENOIDECTOMY (HISTORICAL) Family History Problem Relation Name Age of Onset Learning disabilities Mother High Blood Pressure Mother Substance Abuse Mother Depression Mother Other ([id number]) Mother ADD Arthritis Mother Breast cancer Mother Other ([id number]) Father ADHA Arthritis Father High Blood Pressure Father Learning disabilities Father Obesity Father Social History Tobacco Use Smoking status: Some Days Current packs/day: 0.50 Average packs/day: 0.5 packs/day for 2.2 years (1.1 ttl pk-yrs) Types: Cigarettes Start date: 2022 Smokeless tobacco: Never Substance Use Topics Alcohol use: Yes Alcohol/week: 1.0 standard drink of alcohol Types: 1 Standard drinks or equivalent per week Initial Diet & Exercise/SPR Visit Weight Metrics: Date of Initial Diet & Exercise Visit: Consult Date: 06/06/24 Initial Weight: Initial Weight: 324 lb 9.6 oz (147 kg) Initial BMI: Initial BMI: 52.39 Savage Body Weight: Savage Body Weight: 137 lb (62.1 kg) Excess Body Weight: EBW: 187 lb General: This patient is alert. Physical Examination: BP (!) 114/94 Pulse 88 Ht 5' 6 (1.676 m) Wt (!) 324 lb 9.6 oz (147 kg) BMI 52.39 kg/m General: This patient is obese and is in no apparent distress. Cardiac: Regular rate and rhythm without evidence of murmur Respiratory: Clear to auscultation bilaterally; No evidence of respiratory distress Head and Neck: Obese, normocephalic and atraumatic/soft and supple; no lymphadenopathy or obvious bruits; no thyromegaly. Musculoskeletal: No cyanosis, clubbing or edema/ No calf tenderness/No restrictions of movement, is ambulatory without assistance, no focal deficits noted. Current Diet This patient s current diet is: high in sugar and high in simple carbohydrates Drinks water, diluted vitamin water Reviewed PAST DIET HISTORY FORM and CURRENT DIET HISTORY FORM with patient (located in [employer]) Her diet contains inadequate amounts of protein, inadequate amounts of healthy fats, inadequate amounts of green, leafy vegetables, and inadequate amounts of fruits. Her comfort foods include:sweets and pasta Current Activity This patient currently does not exercise. Current Eating Behaviors This patients demonstrates the following behaviors as they relate to her eating:eats large portions and eats at night She eats approximately 3-4 times per day. Her last meal/snack was at 7 pm. Plan: 1). GERD- Controlled with dietary modifications. 2). Morbid Obesity, BMI 51.37- Lengthy discussion re: eating for your metabolism by being mindful of timing of eating, high protein diet, pairing protein with complex carb at meals and snacks. Resources provided, questions addressed and answered. Patient is planning to undergo Bariatric surgery for weight reduction. 3). Tobacco Abuse, In Remission- Reports she has ceased all nicotine products since 03/2024. Advised to continue to abstain. Reviewed risks associated with nicotine use postoperatively. Advised patient that She must adhere to regular monthly visits to meet the requirements of her insurance company. Additionally, She must demonstrate meal plan adoption to show readiness for the changes that will be required following surgery. Physician Diet Recommendations provided to patient. Patient to return for follow up in one month. Current Meds Patient's Medications No medications on file [facility] SURGICAL WEIGHT LOSS MANAGEMENT PROGRAM SUPERVISED DIET AND EXERCISE ROOMING: INITIAL VISIT Patient: Michoacano Wilson Date of : 2000 Service Date: 06/06/2024 Patient is here today to initiate physician-supervised diet and exercise as required by their insurance company prior to approval for weight loss surgery. This patient is alone for the evaluation today This is visit 1 of 6 required visits. Weight Metrics: (From Surgical Weight Loss Management) Today's Vital Signs: Non-Surgical Initial Eval Consult Date: 06/06/24 Initial Height: 5' 6 (167.6 cm) Initial Weight: 324 lb 9.6 oz (147 kg) Savage Body Weight: 137 lb (62.1 kg) Initial BMI: 52.39 Initial Body Fat %: 62.87 EBW: 187 lb (From NonSurgical Weight Loss Tracker) Falls Risk Assessment Patient does not take medications which affect BP or mental status Patient does not have newly prescribed or changed dosage of medications within past 30 days which affect BP or mental status Patient has not fallen in the past 2 months Patient uses the following ambulatory assistive devices: none Patient states the presence of the following traits which increases risk of fall: none Patient is noton home O2 Have you received packet of information by mail from our office which includes: Surgical Checklist, lab orders & referral information? No Completed by: Jhonny Simpson MA documented in this encounter [facility] 04-18-2024 Telephone encounter Note Patient contact made via telephone. Scheduled patient appointment with Aria in [place] on May 16. Patient agreed and confirmed appointment [facility] 04-18-2024 Miscellaneous Notes Patient contact made via telephone. Scheduled patient appointment with [facility] in [place] on May 16. Patient agreed and confirmed appointment Attempted to call patient unable to leave a message Name of Caller: Michoacano Contact Reason for Appointment: Michoacano called advising she is too sick to come to her appointment and would like to reschedule. Please call patient back to reschedule appointment and advise. Office Name: Weight Management documented in this encounter [facility] 04-18-2024 Telephone encounter Note Attempted to call patient unable to leave a message [facility] 04-17-2024 Telephone encounter Note Name of Caller: Yesichanel Contact Reason for Appointment: Michoacano called advising she is too sick to come to her appointment and would like to reschedule. Please call patient back to reschedule appointment and advise. Office Name: Weight Management [facility] 04-07-2024 Telephone encounter Note Orders mailed (D/E R/S to 04/18/2024 W/ AM) [facility] 04-07-2024 Miscellaneous Notes Orders mailed (D/E R/S to 04/18/2024 W/ AM) Orders / pre op check list placed in folder for initial D/E 04/07/2024 W/ MZ Addended by: SILVA CASTILLO on: 02/08/2024 01:28 PM Modules accepted: Orders Orders signed. Addended by: MOLLY SANDERS on: 02/08/2024 10:57 AM Modules accepted: Orders EGD order sent to 260 clinical nurse manager, Initial labs pended UGI and US ordered, Pre op check list scanned to media. PLAN Encounter Diagnosis Name Primary? Morbid obesity with BMI of 50.0-59.9, adult (HCC) Yes I have recommended proceeding with the evaluation and work-up for the primary procedure as outlined below: PATIENT SUMMARY Jodeejose Rojas Katie GARCIA 23 y.o. female with Body mass index is 56.1 kg/m . Laparoscopic Sleeve Gastrectomy and Laparoscopic Liver Biopsy Procedure DM[] HTN[] SARAI[] GERD[x] HL[] OA[] TOB[] Date of Surgery: TBD NOTES MP PCP: INITIAL TESTING RESULTS Labwork [x] CMP, TSH, Fasting Lipid Profile, Mg, Zinc, Vit B1 (whole blood), Vit B12, 25-OH Vit D, Fe, Ferritin, Folate Tobacco [x] Serum Nicotine / Cotinine [] Negative [] Positive EGD [x] Dx: [x] GERD [] Dyspepsia [] Other Pathology [x] H. pylori [] Negative [] Positive UGI [] [] not ordered US Abdomen [] [] not ordered SARAI eval [] [] On CPAP / Obtain settings Hematology [] [] Hypercoagulation panel Toxicology [x] [x] Urine drug screen [x] EtOH screen Addtional [] [x] Hgb A1c INITIAL CONSULTATIONS CLEARANCE / MANAGEMENT Psychology [x] Dietitian [x] Cardiology [x] Pulmonary [x] Others [] []Heme/Onc []Psychiatry []Pain mgmt PSD [] Physician supervised diet: []None []3 mos [x]6 mos Preop diet [] Preop low calory diet: []None []1 wk [x]2 wks []Ext. FINAL PRE-OP TESTING RESULTS Labwork [x] [x]Pre-op CBC [x]BMP []Serum Nicotine / Cotinine EKG [x] CXR [x] POST-OP MEDICATIONS Ulcer Ppx [] Omeprazole 20 mg PO []QD []BID Gallstone Ppx [] Ursodiol 300 mg []BID DVT Ppx [] DVT prophylaxis per final preop visit estimated risk Estimated calculated risk: % Schedule final pre-operative office visit with surgeon, pre-operative education class, and pre-operative exercise class prior to date of surgery ATTESTATION I reviewed with the patient the details of the proposed operation. The risks benefits and options were discussed. Risks included but were not limited to bleeding, infection, damage to other surrounding organs, cardio-pulmonary complications related to anesthesia, conversion from laparoscopic to and open procedure, the need for reoperative or endoscopic therapy, the potential for prolonged mechanical ventilation, and . All questions were fully answered to the patient's satisfaction and they wish to proceed with surgical intervention. Sleeve Liver biopsy The face to face encounter was spent counseling the patient and discussing the risks,benefits and options of surgery as well as the perioperative care plan. The patient was seen and examined independently and relevant data including a full chart rreview was performed by myself. Initial New [facility] surgical patient Navigation & Financial Counseling Discussion Patient Communication: In office SURGEON: [] KELSEY [] AD [x] MP [] TB [] LM PROCEDURE: [] LRYGB [x] LSG [] LENIN-S [] LENIN [] UNDECIDED [] REV: SPECIFY: Confirmed pt wants to continue with surgical program/plan [x] YES [] NO (complete program withdrawal note/process) CO-MORBIDS: [] NONE [] DM []HTN [] SARAI []GERD [] OTH: PRIVATE PAY: [] NO []YES DATE OF INITIAL BENEFITS VERIFICATION: TRANSFER FU: [] YES [] NO PRIMARY INSURANCE: Payor: [place] / Plan: [place] / Product Type: Medicaid HMO / BENEFIT ON PLAN: [] NO [] YES BENEFIT MAX: [] NO [] YES -- BENEFIT MAX: $ EMPLOYER: DIET AND EXERCISE (DE) REQUIREMENT PRIMARY [] NONE []3M [] 6M []9M [] Medicare 4 Months [] SPR (3M) []OTHER: SECONDARY INSURANCE: BENEFIT ON PLAN: [] NO [] YES BENEFIT MAX: [] NO [] YES -- BENEFIT MAX: $ AUTH REQUIRED FROM SECONDARY [] NO [] YES DIET AND EXERCISE REQUIREMENT SECONDARY [] NONE []3M [] 6M [] Medicare 4 months [] SPR (3M) []OTHER: ___ [] Discussed with patient: Financial cost overview (document signed and pt given copy at new pt consult visit with surgeon), Initial appointments: Bariatric Nutrition Assessment (BNA) & Diet and Exercise (DE) Patient to look for yellow envelope in mail. This yellow envelope will contain orders for labs, testing and required clearances. Pt encouraged to complete early in program to prevent delays. Encourage blood work to be draw by 1st DE appointment. [] Reviewed OOP cost, including: [] Overview of inpatient admission benefits - estimated inpatient co-pays, deductibles and/or co-insurance - Estimated OOP costs form reviewed with patient, and copy given to patient at new pt visit. [] Reviewed next steps with patient: 1) Scheduled at new pt surgeon visit: Medical Care Administrator (RD) for a Nutrition Assessment (BNA) and Pre-operative Diet and Exercise (DE) appointment #1. [] Patient reminded to arrive 15 minutes early for check in. Late arrivals may need to be rescheduled. 2) Schedule: Diet and Exercise Apt #2 only scheduled after initial BNA and DE completed, 3) Behavioral Health apt scheduled after DE started. Reviewed rational and goal of Behavioral Health appointments. 4) [] Reinforced need to cancel any WMI appointments 48 hours in advance. Cautioned NS/Same day cancellations may result in delay in program or program completion hold. Noted: DE series needs to be a monthly series or insurance company may require repeat of the entire series. 5) [] Smoker/tobacco products including vaping: reviewed need for cessation before surgery clearance and life long abstinence after surgery for best outcomes. Patient navigation to surgery: [] Explained to patient that average time from initial consult to date of surgery can be 6-8 months. - Process can take longer if there are cancelled appointments, delays in testing and/or additional clearances that needs to be completed. - Reviewed importance of patient active engagement in making and keeping appointments to keep the process moving. - Reinforced need to cancel appointments at least 48 hours in advance. Reviewed that instances of No Shows and Same Day Appointment Cancellations may result in program/surgery delay or hold. [] Patient advised of importance of having voicemail and MyChart for office communications and lab/testing results before and after surgery. documented in this encounter [facility] 02-10-2024 Miscellaneous Notes Orders / pre op check list placed in folder for initial D/E 04/07/2024 W/ MZ Addended by: SILVA CASTILLO on: 02/08/2024 01:28 PM Modules accepted: Orders Orders signed. Addended by: MOLLY SANDERS on: 02/08/2024 10:57 AM Modules accepted: Orders EGD order sent to 260 clinical nurse manager, Initial labs pended UGI and US ordered, Pre op check list scanned to media. PLAN Encounter Diagnosis Name Primary? Morbid obesity with BMI of 50.0-59.9, adult (HCC) Yes I have recommended proceeding with the evaluation and work-up for the primary procedure as outlined below: PATIENT SUMMARY [place] GARCIA 23 y.o. female with Body mass index is 56.1 kg/m . Laparoscopic Sleeve Gastrectomy and Laparoscopic Liver Biopsy Procedure DM[] HTN[] SARAI[] GERD[x] HL[] OA[] TOB[] Date of Surgery: TBD NOTES MP PCP: INITIAL TESTING RESULTS Labwork [x] CMP, TSH, Fasting Lipid Profile, Mg, Zinc, Vit B1 (whole blood), Vit B12, 25-OH Vit D, Fe, Ferritin, Folate Tobacco [x] Serum Nicotine / Cotinine [] Negative [] Positive EGD [x] Dx: [x] GERD [] Dyspepsia [] Other Pathology [x] H. pylori [] Negative [] Positive UGI [] [] not ordered US Abdomen [] [] not ordered SARAI eval [] [] On CPAP / Obtain settings Hematology [] [] Hypercoagulation panel Toxicology [x] [x] Urine drug screen [x] EtOH screen Addtional [] [x] Hgb A1c INITIAL CONSULTATIONS CLEARANCE / MANAGEMENT Psychology [x] Dietitian [x] Cardiology [x] Pulmonary [x] Others [] []Heme/Onc []Psychiatry []Pain mgmt PSD [] Physician supervised diet: []None []3 mos [x]6 mos Preop diet [] Preop low calory diet: []None []1 wk [x]2 wks []Ext. FINAL PRE-OP TESTING RESULTS Labwork [x] [x]Pre-op CBC [x]BMP []Serum Nicotine / Cotinine EKG [x] CXR [x] POST-OP MEDICATIONS Ulcer Ppx [] Omeprazole 20 mg PO []QD []BID Gallstone Ppx [] Ursodiol 300 mg []BID DVT Ppx [] DVT prophylaxis per final preop visit estimated risk Estimated calculated risk: % Schedule final pre-operative office visit with surgeon, pre-operative education class, and pre-operative exercise class prior to date of surgery ATTESTATION I reviewed with the patient the details of the proposed operation. The risks benefits and options were discussed. Risks included but were not limited to bleeding, infection, damage to other surrounding organs, cardio-pulmonary complications related to anesthesia, conversion from laparoscopic to and open procedure, the need for reoperative or endoscopic therapy, the potential for prolonged mechanical ventilation, and . All questions were fully answered to the patient's satisfaction and they wish to proceed with surgical intervention. Sleeve Liver biopsy The face to face encounter was spent counseling the patient and discussing the risks,benefits and options of surgery as well as the perioperative care plan. The patient was seen and examined independently and relevant data including a full chart rreview was performed by myself. Initial New [facility] surgical patient Navigation & Financial Counseling Discussion Patient Communication: In office SURGEON: [] JZ [] AD [x] MP [] TB [] LM PROCEDURE: [] LRYGB [x] LSG [] LENIN-S [] LENIN [] UNDECIDED [] REV: SPECIFY: Confirmed pt wants to continue with surgical program/plan [x] YES [] NO (complete program withdrawal note/process) CO-MORBIDS: [] NONE [] DM []HTN [] SARAI []GERD [] OTH: PRIVATE PAY: [] NO []YES DATE OF INITIAL BENEFITS VERIFICATION: TRANSFER FU: [] YES [] NO PRIMARY INSURANCE: Pay[place]: [place] / Plan: [place] / Product Type: Medicaid HMO / BENEFIT ON PLAN: [] NO [] YES BENEFIT MAX: [] NO [] YES -- BENEFIT MAX: $ EMPLOYER: DIET AND EXERCISE (DE) REQUIREMENT PRIMARY [] NONE []3M [] 6M []9M [] Medicare 4 Months [] SPR (3M) []OTHER: SECONDARY INSURANCE: BENEFIT ON PLAN: [] NO [] YES BENEFIT MAX: [] NO [] YES -- BENEFIT MAX: $ AUTH REQUIRED FROM SECONDARY [] NO [] YES DIET AND EXERCISE REQUIREMENT SECONDARY [] NONE []3M [] 6M [] Medicare 4 months [] SPR (3M) []OTHER: ___ [] Discussed with patient: Financial cost overview (document signed and pt given copy at new pt consult visit with surgeon), Initial appointments: Bariatric Nutrition Assessment (BNA) & Diet and Exercise (DE) Patient to look for yellow envelope in mail. This yellow envelope will contain orders for labs, testing and required clearances. Pt encouraged to complete early in program to prevent delays. Encourage blood work to be draw by 1st DE appointment. [] Reviewed OOP cost, including: [] Overview of inpatient admission benefits - estimated inpatient co-pays, deductibles and/or co-insurance - Estimated OOP costs form reviewed with patient, and copy given to patient at new pt visit. [] Reviewed next steps with patient: 1) Scheduled at new pt surgeon visit: Medical Care Administrator (RD) for a Nutrition Assessment (BNA) and Pre-operative Diet and Exercise (DE) appointment #1. [] Patient reminded to arrive 15 minutes early for check in. Late arrivals may need to be rescheduled. 2) Schedule: Diet and Exercise Apt #2 only scheduled after initial BNA and DE completed, 3) Behavioral Health apt scheduled after DE started. Reviewed rational and goal of Behavioral Health appointments. 4) [] Reinforced need to cancel any WMI appointments 48 hours in advance. Cautioned NS/Same day cancellations may result in delay in program or program completion hold. Noted: DE series needs to be a monthly series or insurance company may require repeat of the entire series. 5) [] Smoker/tobacco products including vaping: reviewed need for cessation before surgery clearance and life long abstinence after surgery for best outcomes. Patient navigation to surgery: [] Explained to patient that average time from initial consult to date of surgery can be 6-8 months. - Process can take longer if there are cancelled appointments, delays in testing and/or additional clearances that needs to be completed. - Reviewed importance of patient active engagement in making and keeping appointments to keep the process moving. - Reinforced need to cancel appointments at least 48 hours in advance. Reviewed that instances of No Shows and Same Day Appointment Cancellations may result in program/surgery delay or hold. [] Patient advised of importance of having voicemail and MyChart for office communications and lab/testing results before and after surgery. documented in this encounter [facility] [employer] 02-10-2024 Telephone encounter Note Orders / pre op check list placed in folder for initial D/E 04/07/2024 W/ MZ [facility] [employer] 02-08-2024 Note Addended by: SILVA DENT on: 02/08/2024 01:28 PM Modules accepted: Orders [facility] 02-08-2024 Note Addended by: SILVA DENT on: 02/08/2024 01:28 PM Modules accepted: Orders [facility] 02-08-2024 Note Addended by: SILVA DENT on: 02/08/2024 01:28 PM Modules accepted: Orders [facility] 02-08-2024 Note Addended by: SILVA DENT on: 02/08/2024 01:28 PM Modules accepted: Orders [facility] 02-08-2024 Telephone encounter Note Orders signed. [facility] 02-08-2024 Miscellaneous Notes Addended by: SILVA CASTILLO on: 02/08/2024 01:28 PM Modules accepted: Orders Orders signed. Addended by: MOLLY SANDERS on: 02/08/2024 10:57 AM Modules accepted: Orders EGD order sent to 260 clinical nurse manager, Initial labs pended UGI and US ordered, Pre op check list scanned to media. PLAN Encounter Diagnosis Name Primary? Morbid obesity with BMI of 50.0-59.9, adult (HCC) Yes I have recommended proceeding with the evaluation and work-up for the primary procedure as outlined below: PATIENT SUMMARY [place] GARCIA 23 y.o. female with Body mass index is 56.1 kg/m . Laparoscopic Sleeve Gastrectomy and Laparoscopic Liver Biopsy Procedure DM[] HTN[] SARAI[] GERD[x] HL[] OA[] TOB[] Date of Surgery: TBD NOTES MP PCP: INITIAL TESTING RESULTS Labwork [x] CMP, TSH, Fasting Lipid Profile, Mg, Zinc, Vit B1 (whole blood), Vit B12, 25-OH Vit D, Fe, Ferritin, Folate Tobacco [x] Serum Nicotine / Cotinine [] Negative [] Positive EGD [x] Dx: [x] GERD [] Dyspepsia [] Other Pathology [x] H. pylori [] Negative [] Positive UGI [] [] not ordered US Abdomen [] [] not ordered SARAI eval [] [] On CPAP / Obtain settings Hematology [] [] Hypercoagulation panel Toxicology [x] [x] Urine drug screen [x] EtOH screen Addtional [] [x] Hgb A1c INITIAL CONSULTATIONS CLEARANCE / MANAGEMENT Psychology [x] Dietitian [x] Cardiology [x] Pulmonary [x] Others [] []Heme/Onc []Psychiatry []Pain mgmt PSD [] Physician supervised diet: []None []3 mos [x]6 mos Preop diet [] Preop low calory diet: []None []1 wk [x]2 wks []Ext. FINAL PRE-OP TESTING RESULTS Labwork [x] [x]Pre-op CBC [x]BMP []Serum Nicotine / Cotinine EKG [x] CXR [x] POST-OP MEDICATIONS Ulcer Ppx [] Omeprazole 20 mg PO []QD []BID Gallstone Ppx [] Ursodiol 300 mg []BID DVT Ppx [] DVT prophylaxis per final preop visit estimated risk Estimated calculated risk: % Schedule final pre-operative office visit with surgeon, pre-operative education class, and pre-operative exercise class prior to date of surgery ATTESTATION I reviewed with the patient the details of the proposed operation. The risks benefits and options were discussed. Risks included but were not limited to bleeding, infection, damage to other surrounding organs, cardio-pulmonary complications related to anesthesia, conversion from laparoscopic to and open procedure, the need for reoperative or endoscopic therapy, the potential for prolonged mechanical ventilation, and . All questions were fully answered to the patient's satisfaction and they wish to proceed with surgical intervention. Sleeve Liver biopsy The face to face encounter was spent counseling the patient and discussing the risks,benefits and options of surgery as well as the perioperative care plan. The patient was seen and examined independently and relevant data including a full chart rreview was performed by myself. Initial New [facility] surgical patient Navigation & Financial Counseling Discussion Patient Communication: In office SURGEON: [] KELSEY [] LALY [x] MP [] TB [] LM PROCEDURE: [] LRYGB [x] LSG [] LENIN-S [] LENIN [] UNDECIDED [] REV: SPECIFY: Confirmed pt wants to continue with surgical program/plan [x] YES [] NO (complete program withdrawal note/process) CO-MORBIDS: [] NONE [] DM []HTN [] SARAI []GERD [] OTH: PRIVATE PAY: [] NO []YES DATE OF INITIAL BENEFITS VERIFICATION: TRANSFER FU: [] YES [] NO PRIMARY INSURANCE: [facility] [place] Plan: [employer] MEDICA[employer] ODM / Product Type: Medicaid HMO / BENEFIT ON PLAN: [] NO [] YES BENEFIT MAX: [] NO [] YES -- BENEFIT MAX: $ EMPLOYER: DIET AND EXERCISE (DE) REQUIREMENT PRIMARY [] NONE []3M [] 6M []9M [] Medicare 4 Months [] SPR (3M) []OTHER: SECONDARY INSURANCE: BENEFIT ON PLAN: [] NO [] YES BENEFIT MAX: [] NO [] YES -- BENEFIT MAX: $ AUTH REQUIRED FROM SECONDARY [] NO [] YES DIET AND EXERCISE REQUIREMENT SECONDARY [] NONE []3M [] 6M [] Medicare 4 months [] SPR (3M) []OTHER: ___ [] Discussed with patient: Financial cost overview (document signed and pt given copy at new pt consult visit with surgeon), Initial appointments: Bariatric Nutrition Assessment (BNA) & Diet and Exercise (DE) Patient to look for yellow envelope in mail. This yellow envelope will contain orders for labs, testing and required clearances. Pt encouraged to complete early in program to prevent delays. Encourage blood work to be draw by 1st DE appointment. [] Reviewed OOP cost, including: [] Overview of inpatient admission benefits - estimated inpatient co-pays, deductibles and/or co-insurance - Estimated OOP costs form reviewed with patient, and copy given to patient at new pt visit. [] Reviewed next steps with patient: 1) Scheduled at new pt surgeon visit: Medical Care Administrator (RD) for a Nutrition Assessment (BNA) and Pre-operative Diet and Exercise (DE) appointment #1. [] Patient reminded to arrive 15 minutes early for check in. Late arrivals may need to be rescheduled. 2) Schedule: Diet and Exercise Apt #2 only scheduled after initial BNA and DE completed, 3) Behavioral Health apt scheduled after DE started. Reviewed rational and goal of Behavioral Health appointments. 4) [] Reinforced need to cancel any WMI appointments 48 hours in advance. Cautioned NS/Same day cancellations may result in delay in program or program completion hold. Noted: DE series needs to be a monthly series or insurance company may require repeat of the entire series. 5) [] Smoker/tobacco products including vaping: reviewed need for cessation before surgery clearance and life long abstinence after surgery for best outcomes. Patient navigation to surgery: [] Explained to patient that average time from initial consult to date of surgery can be 6-8 months. - Process can take longer if there are cancelled appointments, delays in testing and/or additional clearances that needs to be completed. - Reviewed importance of patient active engagement in making and keeping appointments to keep the process moving. - Reinforced need to cancel appointments at least 48 hours in advance. Reviewed that instances of No Shows and Same Day Appointment Cancellations may result in program/surgery delay or hold. [] Patient advised of importance of having voicemail and MyChart for office communications and lab/testing results before and after surgery. documented in this encounter [facility] 02-08-2024 Note Addended by: Rahul SANDERS on: 02/08/2024 10:57 AM Modules accepted: Orders [facility] 02-08-2024 Note Addended by: Rahul SANDERS on: 02/08/2024 10:57 AM Modules accepted: Orders [facility] 02-08-2024 Note Addended by: Rahul SANDERS on: 02/08/2024 10:57 AM Modules accepted: Orders [facility] 02-08-2024 Note Addended by: Rahul SANDERS on: 02/08/2024 10:57 AM Modules accepted: Orders [facility] 02-08-2024 Telephone encounter Note EGD order sent to 260 clinical nurse manager, Initial labs pended UGI and US ordered, Pre op check list scanned to [employer]. [employer] 02-08-2024 Telephone encounter Note PLAN Encounter Diagnosis Name Primary? Morbid obesity with BMI of 50.0-59.9, adult (HCC) Yes I have recommended proceeding with the evaluation and work-up for the primary procedure as outlined below: PATIENT SUMMARY [place] GARCIA 23 y.o. female with Body mass index is 56.1 kg/m . Laparoscopic Sleeve Gastrectomy and Laparoscopic Liver Biopsy Procedure DM[] HTN[] SARAI[] GERD[x] HL[] OA[] TOB[] Date of Surgery: TBD NOTES MP PCP: INITIAL TESTING RESULTS Labwork [x] CMP, TSH, Fasting Lipid Profile, Mg, Zinc, Vit B1 (whole blood), Vit B12, 25-OH Vit D, Fe, Ferritin, Folate Tobacco [x] Serum Nicotine / Cotinine [] Negative [] Positive EGD [x] Dx: [x] GERD [] Dyspepsia [] Other Pathology [x] H. pylori [] Negative [] Positive UGI [] [] not ordered US Abdomen [] [] not ordered SARAI eval [] [] On CPAP / Obtain settings Hematology [] [] Hypercoagulation panel Toxicology [x] [x] Urine drug screen [x] EtOH screen Addtional [] [x] Hgb A1c INITIAL CONSULTATIONS CLEARANCE / MANAGEMENT Psychology [x] Dietitiela [x] Cardiology [x] Pulmonary [x] Others [] []Heme/Onc []Psychiatry []Pain mgmt PSD [] Physician supervised diet: []None []3 mos [x]6 mos Preop diet [] Preop low calory diet: []None []1 wk [x]2 wks []Ext. FINAL PRE-OP TESTING RESULTS Labwork [x] [x]Pre-op CBC [x]BMP []Serum Nicotine / Cotinine EKG [x] CXR [x] POST-OP MEDICATIONS Ulcer Ppx [] Omeprazole 20 mg PO []QD []BID Gallstone Ppx [] Ursodiol 300 mg []BID DVT Ppx [] DVT prophylaxis per final preop visit estimated risk Estimated calculated risk: % Schedule final pre-operative office visit with surgeon, pre-operative education class, and pre-operative exercise class prior to date of surgery ATTESTATION I reviewed with the patient the details of the proposed operation. The risks benefits and options were discussed. Risks included but were not limited to bleeding, infection, damage to other surrounding organs, cardio-pulmonary complications related to anesthesia, conversion from laparoscopic to and open procedure, the need for reoperative or endoscopic therapy, the potential for prolonged mechanical ventilation, and . All questions were fully answered to the patient's satisfaction and they wish to proceed with surgical intervention. Sleeve Liver biopsy The face to face encounter was spent counseling the patient and discussing the risks,benefits and options of surgery as well as the perioperative care plan. The patient was seen and examined independently and relevant data including a full chart rreview was performed by myself. [facility] 02-07-2024 Note Initial New [facility] surg ical patient Navigation & Financial Counseling Discussion Patient Communication: In office SURGEON: [] KELSEY [] AD [x] MP [] TB [] LM PROCEDURE: [] LRYGB [x] LSG [] LENIN-S [] LENIN [] UNDECIDED [] REV: SPECIFY: Confirmed pt wants to continue with surgical program/plan [x] YES [] NO (complete program withdrawal note/process) CO-MORBIDS: [] NONE [] DM []HTN [] SARAI []GERD [] OTH: PRIVATE PAY: [] NO []YES DATE OF INITIAL BENEFITS VERIFICATION: TRANSFER FU: [] YES [] NO PRIMARY INSURANCE: Pay[place]: [place] [employer] / Plan: [place]DM / Product Type: Medicaid HMO / BENEFIT ON PLAN: [] NO [] YES BENEFIT MAX: [] NO [] YES -- BENEFIT MAX: $ EMPLOYER: DIET AND EXERCISE (DE) REQUIREMENT PRIMARY [] NONE []3M [] 6M []9M [] Medicare 4 Months [] SPR (3M) []OTHER: SECONDARY INSURANCE: BENEFIT ON PLAN: [] NO [] YES BENEFIT MAX: [] NO [] YES -- BENEFIT MAX: $ AUTH REQUIRED FROM SECONDARY [] NO [] YES DIET AND EXERCISE REQUIREMENT SECONDARY [] NONE []3M [] 6M [] Medicare 4 months [] SPR (3M) []OTHER: ___ [] Discussed with patient: Financial cost overview (document signed and pt given copy at new pt consult visit with surgeon), Initial appointments: Bariatric Nutrition Assessment (BNA) & Diet and Exercise (DE) Patient to look for yellow envelope in mail. This yellow envelope will contain orders for labs, testing and required clearances. Pt encouraged to complete early in program to prevent delays. Encourage blood work to be draw by 1st DE appointment. [] Reviewed OOP cost, including: [] Overview of inpatient admission benefits - estimated inpatient co-pays, deductibles and/or co-insurance - Estimated OOP costs form reviewed with patient, and copy given to patient at new pt visit. [] Reviewed next steps with patient: 1) Scheduled at new pt surgeon visit: Medical Care Administrator (RD) for a Nutrition Assessment (BNA) and Pre-operative Diet and Exercise (DE) appointment #1. [] Patient reminded to arrive 15 minutes early for check in. Late arrivals may need to be rescheduled. 2) Schedule: Diet and Exercise Apt #2 only scheduled after initial BNA and DE completed, 3) Behavioral Health apt scheduled after DE started. Reviewed rational and goal of Behavioral Health appointments. 4) [] Reinforced need to cancel any WMI appointments 48 hours in advance. Cautioned NS/Same day cancellations may result in delay in program or program completion hold. Noted: DE series needs to be a monthly series or insurance company may require repeat of the entire series. 5) [] Smoker/tobacco products including vaping: reviewed need for cessation before surgery clearance and life long abstinence after surgery for best outcomes. Patient navigation to surgery: [] Explained to patient that average time from initial consult to date of surgery can be 6-8 months. - Process can take longer if there are cancelled appointments, delays in testing and/or additional clearances that needs to be completed. - Reviewed importance of patient active engagement in making and keeping appointments to keep the process moving. - Reinforced need to cancel appointments at least 48 hours in advance. Reviewed that instances of No Shows and Same Day Appointment Cancellations may result in program/surgery delay or hold. [] Patient advised of importance of having voicemail and MyChart for office communications and lab/testing results before and after surgery. [facility] 02-07-2024 Telephone encounter Note Initial New [facility] surgical patient Navigation & Financial Counseling Discussion Patient Communication: In office SURGEON: [] JJay [] AD [x] MP [] TB [] LM PROCEDURE: [] LRYGB [x] LSG [] LENIN-S [] LENIN [] UNDECIDED [] REV: SPECIFY: Confirmed pt wants to continue with surgical program/plan [x] YES [] NO (complete program withdrawal note/process) CO-MORBIDS: [] NONE [] DM []HTN [] SARAI []GERD [] OTH: PRIVATE PAY: [] NO []YES DATE OF INITIAL BENEFITS VERIFICATION: TRANSFER FU: [] YES [] NO PRIMARY INSURANCE: Payor: [facility] [place] / Plan: [facility] [place]DM / Product Type: Medicaid HMO / BENEFIT ON PLAN: [] NO [] YES BENEFIT MAX: [] NO [] YES -- BENEFIT MAX: $ EMPLOYER: DIET AND EXERCISE (DE) REQUIREMENT PRIMARY [] NONE []3M [] 6M []9M [] Medicare 4 Months [] SPR (3M) []OTHER: SECONDARY INSURANCE: BENEFIT ON PLAN: [] NO [] YES BENEFIT MAX: [] NO [] YES -- BENEFIT MAX: $ AUTH REQUIRED FROM SECONDARY [] NO [] YES DIET AND EXERCISE REQUIREMENT SECONDARY [] NONE []3M [] 6M [] Medicare 4 months [] SPR (3M) []OTHER: ___ [] Discussed with patient: Financial cost overview (document signed and pt given copy at new pt consult visit with surgeon), Initial appointments: Bariatric Nutrition Assessment (BNA) & Diet and Exercise (DE) Patient to look for yellow envelope in mail. This yellow envelope will contain orders for labs, testing and required clearances. Pt encouraged to complete early in program to prevent delays. Encourage blood work to be draw by 1st DE appointment. [] Reviewed OOP cost, including: [] Overview of inpatient admission benefits - estimated inpatient co-pays, deductibles and/or co-insurance - Estimated OOP costs form reviewed with patient, and copy given to patient at new pt visit. [] Reviewed next steps with patient: 1) Scheduled at new pt surgeon visit: Medical Care Administrator (RD) for a Nutrition Assessment (BNA) and Pre-operative Diet and Exercise (DE) appointment #1. [] Patient reminded to arrive 15 minutes early for check in. Late arrivals may need to be rescheduled. 2) Schedule: Diet and Exercise Apt #2 only scheduled after initial BNA and DE completed, 3) Behavioral Health apt scheduled after DE started. Reviewed rational and goal of Behavioral Health appointments. 4) [] Reinforced need to cancel any WMI appointments 48 hours in advance. Cautioned NS/Same day cancellations may result in delay in program or program completion hold. Noted: DE series needs to be a monthly series or insurance company may require repeat of the entire series. 5) [] Smoker/tobacco products including vaping: reviewed need for cessation before surgery clearance and life long abstinence after surgery for best outcomes. Patient navigation to surgery: [] Explained to patient that average time from initial consult to date of surgery can be 6-8 months. - Process can take longer if there are cancelled appointments, delays in testing and/or additional clearances that needs to be completed. - Reviewed importance of patient active engagement in making and keeping appointments to keep the process moving. - Reinforced need to cancel appointments at least 48 hours in advance. Reviewed that instances of No Shows and Same Day Appointment Cancellations may result in program/surgery delay or hold. [] Patient advised of importance of having voicemail and MyChart for office communications and lab/testing results before and after surgery. [facility] 02-07-2024 History of Presen t illness Narrative Images from the original note were not included. BARIATRIC AND METABOLIC SURGERY [facility] INITIAL EVALUATION - HISTORY AND PHYSICAL 02/07/2024 PATIENT: Michoacano Wilson DATE OF : 2000 HISTORY OF PRESENT ILLNESS Chief Complaint: Morbid Obesity and associated comorbid conditions. Michoacano Wilson is a 23 y.o. female with morbid obesity and associated comorbid conditions who [facility]ric surgery. The patient stands Height: 5' 6 (167.6 cm) tall with a weight of Weight: (!) 347 lb 9.6 oz (158 kg) , and has a BMI of Body mass index is 56.1 kg/m .. The patient has failed multiple attempts at non-surgical weight loss, and is now seeking surgical intervention to promote permanent and consistent weight loss. The patient suffers from multiple co-morbidities as a result of morbid obesity as outlined in the past medical history. The patient denies a history of myocardia infarction, deep vein thrombosis, pulmonary embolism, renal failure, hepatic failure, stroke, and seizure. She does smoke, and does drink alcohol. - vaping Review of Systems All other systems reviewed and are negative. PAST HISTORIES Past Medical History: Diagnosis Date ADHD (attention deficit hyperactivity disorder) Anxiety panic attacks Depression Morbid obesity, unspecified obesity type (HCC) 02/02/2024 Obesity Snoring Past Surgical History: Procedure Laterality Date APPENDECTOMY 2022 SECTION, CLASSIC 2020 TONSILLECTOMY AND ADENOIDECTOMY (HISTORICAL) Family History Problem Relation Name Age of Onset Learning disabilities Mother High Blood Pressure Mother Substance Abuse Mother Depression Mother Other ([id number]) Mother ADD Other ([id number]) Father ADHA Arthritis Mother Arthritis Father High Blood Pressure Father Learning disabilities Father Social History Tobacco Use Smoking status: Every Day Current packs/day: 0.50 Average packs/day: 0.5 packs/day for 1.9 years (1.0 ttl pk-yrs) Types: Cigarettes Start date: 2022 Smokeless tobacco: Never Substance Use Topics Alcohol use: Yes Alcohol/week: 1.0 standard drink of alcohol Types: 1 Standard drinks or equivalent per week Patient's Medications No medications on file No Known Allergies PHYSICAL EXAM BP 109/73 Pulse 64 Temp 36.4 C (97.5 F) Resp 18 Ht 5' 6 (1.676 m) Wt (!) 347 lb 9.6 oz (158 kg) BMI 56.10 kg/m Physical Exam Constitutional: Appearance: Normal appearance. HENT: Head: Normocephalic and atraumatic. Mouth/Throat: Mouth: Mucous membranes are moist. Pharynx: Oropharynx is clear. Eyes: Extraocular Movements: Extraocular movements intact. Conjunctiva/sclera: Conjunctivae normal. Cardiovascular: Rate and Rhythm: Normal rate and regular rhythm. Pulmonary: Effort: Pulmonary effort is normal. Breath sounds: Normal breath sounds. Abdominal: General: Abdomen is flat. Bowel sounds are normal. Musculoskeletal: Cervical back: Normal range of motion and neck supple. Neurological: Mental Status: She is alert. LABORATORY STUDIES AND IMAGING Laboratory Studies: No results for input(s): NA, K, CL, CO2, BUN, CREATININE, GLUCOSE, CALCIUM in the last 72 hours. No results for input(s): WBC, RBC, HGB, HCT, MCV, MCH, MCHC, RDW, PLT, MPV in the last 72 hours. No results for input(s): ALKPHOS, ALT, AST, PROT, BILITOT, BILIDIR, LIPASE in the last 72 hours. No lab exists for component: LABALBU Imaging Studies: ASSESSMENT Based on today's evaluation, the patient is a candidate for Laparoscopic Sleeve Gastrectomy. She chose Laparoscopic Sleeve Gastrectomy and Laparoscopic Liver Biopsy. In anticipation of weight reductive surgery now or in the future, we spent a great deal of time discussing the risks and benefits of , including but not limited to injury to intra-abdominal organs, breakdown of the gastric staple line, the need for re-operative therapy, prolonged hospitalization, mechanical ventilation, and . We discussed the possibility of bleeding, the need for blood transfusions, blood clots, hospital-acquired and intra-abdominal infection, anastomotic stricture, and worsening GERD. And we discussed the need for post-operative visit compliance, behavior modifications and diet changes, protein and vitamin supplementation, as well as routine scheduled and dedicated exercise. We discussed the potential weight loss benefit of approximately 60-70% of her excess body weight at 12-18 months post-op, as well as the possibility of insufficient weight loss or weight gain after 2 years post-operative time. Upon completion of all required pre-operative testing we will submit for insurance pre-authorization. PLAN Encounter Diagnosis Name Primary? Morbid obesity with BMI of 50.0-59.9, adult (HCC) Yes I have recommended proceeding with the evaluation and work-up for the primary procedure as outlined below: PATIENT SUMMARY Jodeejose Rojas Katie GARCIA 23 y.o. female with Body mass index is 56.1 kg/m . Laparoscopic Sleeve Gastrectomy and Laparoscopic Liver Biopsy Procedure DM[] HTN[] SARAI[] GERD[x] HL[] OA[] TOB[] Date of Surgery: TBD NOTES MP PCP: INITIAL TESTING RESULTS Labwork [x] CMP, TSH, Fasting Lipid Profile, Mg, Zinc, Vit B1 (whole blood), Vit B12, 25-OH Vit D, Fe, Ferritin, Folate Tobacco [x] Serum Nicotine / Cotinine [] Negative [] Positive EGD [x] Dx: [x] GERD [] Dyspepsia [] Other Pathology [x] H. pylori [] Negative [] Positive UGI [] [] not ordered US Abdomen [] [] not ordered SARAI eval [] [] On CPAP / Obtain settings Hematology [] [] Hypercoagulation panel Toxicology [x] [x] Urine drug screen [x] EtOH screen Addtional [] [x] Hgb A1c INITIAL CONSULTATIONS CLEARANCE / MANAGEMENT Psychology [x] Dietitian [x] Cardiology [x] Pulmonary [x] Others [] []Heme/Onc []Psychiatry []Pain mgmt PSD [] Physician supervised diet: []None []3 mos [x]6 mos Preop diet [] Preop low calory diet: []None []1 wk [x]2 wks []Ext. FINAL PRE-OP TESTING RESULTS Labwork [x] [x]Pre-op CBC [x]BMP []Serum Nicotine / Cotinine EKG [x] CXR [x] POST-OP MEDICATIONS Ulcer Ppx [] Omeprazole 20 mg PO []QD []BID Gallstone Ppx [] Ursodiol 300 mg []BID DVT Ppx [] DVT prophylaxis per final preop visit estimated risk Estimated calculated risk: % Schedule final pre-operative office visit with surgeon, pre-operative education class, and pre-operative exercise class prior to date of surgery ATTESTATION I reviewed with the patient the details of the proposed operation. The risks benefits and options were discussed. Risks included but were not limited to bleeding, infection, damage to other surrounding organs, cardio-pulmonary complications related to anesthesia, conversion from laparoscopic to and open procedure, the need for reoperative or endoscopic therapy, the potential for prolonged mechanical ventilation, and . All questions were fully answered to the patient's satisfaction and they wish to proceed with surgical intervention. Sleeve Liver biopsy The face to face encounter was spent counseling the patient and discussing the risks,benefits and options of surgery as well as the perioperative care plan. The patient was seen and examined independently and relevant data including a full chart rreview was performed by myself. Storey FACS Director - Minimally Invasive Surgery ---[facility]--- Patient Care Team: Eugene Pires DO as PCP - General Cassandra Voss DO as Surgeon (General Surgery) [facility] SURGICAL WEIGHT LOSS MANAGEMENT PROGRAM Rooming Note - INITIAL CONSULTATION Patient: Michoacano Wilson Date of : 2000 Service Date: 02/07/2024 Patient is here today to discuss the possibility of weight loss surgery. Physician Supervised D/E: 6M Weight Metrics: Vitals BP: 109/73 Heart Rate: 64 Resp: 18 Temp: 36.4 C (97.5 F) Baseline Measures Initial Height: 5' 6 (167.6 cm) Initial Weight: 347 lb 9.6 oz (158 kg) Initial BMI: 56.1 Initial EBW: 217 lb 9.6 oz (98.7 kg) Initial Waist Cricumference: 64.25in Initial Neck Circumference: 16.5in History of Difficult Intubation: No Patient is not on home O2 Completed by: Florina Plummer MA documented in this encounter [facility] 02-07-2024 History of Presen t illness Narrative Images from the original note were not included. BARIATRIC AND METABOLIC SURGERY [facility] INITIAL EVALUATION - HISTORY AND PHYSICAL 02/07/2024 PATIENT: Michoacano Wilson DATE OF : 2000 HISTORY OF PRESENT ILLNESS Chief Complaint: Morbid Obesity and associated comorbid conditions. Michoacano Wilson is a 23 y.o. female with morbid obesity and associated comorbid conditions who presents to the [facility]ariat[facility] for evaluation for bariatric surgery. The patient stands Height: 5' 6 (167.6 cm) tall with a weight of Weight: (!) 347 lb 9.6 oz (158 kg) , and has a BMI of Body mass index is 56.1 kg/m .. The patient has failed multiple attempts at non-surgical weight loss, and is now seeking surgical intervention to promote permanent and consistent weight loss. The patient suffers from multiple co-morbidities as a result of morbid obesity as outlined in the past medical history. The patient denies a history of myocardia infarction, deep vein thrombosis, pulmonary embolism, renal failure, hepatic failure, stroke, and seizure. She does smoke, and does drink alcohol. - vaping Review of Systems All other systems reviewed and are negative. PAST HISTORIES Past Medical History: Diagnosis Date ADHD (attention deficit hyperactivity disorder) Anxiety panic attacks Depression Morbid obesity, unspecified obesity type (HCC) 02/02/2024 Obesity Snoring Past Surgical History: Procedure Laterality Date APPENDECTOMY 2022 SECTION, CLASSIC 2020 TONSILLECTOMY AND ADENOIDECTOMY (HISTORICAL) Family History Problem Relation Name Age of Onset Learning disabilities Mother High Blood Pressure Mother Substance Abuse Mother Depression Mother Other ([id number]) Mother ADD Other ([id number]) Father ADHA Arthritis Mother Arthritis Father High Blood Pressure Father Learning disabilities Father Social History Tobacco Use Smoking status: Every Day Current packs/day: 0.50 Average packs/day: 0.5 packs/day for 1.9 years (1.0 ttl pk-yrs) Types: Cigarettes Start date: 2022 Smokeless tobacco: Never Substance Use Topics Alcohol use: Yes Alcohol/week: 1.0 standard drink of alcohol Types: 1 Standard drinks or equivalent per week Patient's Medications No medications on file No Known Allergies PHYSICAL EXAM BP 109/73 Pulse 64 Temp 36.4 C (97.5 F) Resp 18 Ht 5' 6 (1.676 m) Wt (!) 347 lb 9.6 oz (158 kg) BMI 56.10 kg/m Physical Exam Constitutional: Appearance: Normal appearance. HENT: Head: Normocephalic and atraumatic. Mouth/Throat: Mouth: Mucous membranes are moist. Pharynx: Oropharynx is clear. Eyes: Extraocular Movements: Extraocular movements intact. Conjunctiva/sclera: Conjunctivae normal. Cardiovascular: Rate and Rhythm: Normal rate and regular rhythm. Pulmonary: Effort: Pulmonary effort is normal. Breath sounds: Normal breath sounds. Abdominal: General: Abdomen is flat. Bowel sounds are normal. Musculoskeletal: Cervical back: Normal range of motion and neck supple. Neurological: Mental Status: She is alert. LABORATORY STUDIES AND IMAGING Laboratory Studies: No results for input(s): NA, K, CL, CO2, BUN, CREATININE, GLUCOSE, CALCIUM in the last 72 hours. No results for input(s): WBC, RBC, HGB, HCT, MCV, MCH, MCHC, RDW, PLT, MPV in the last 72 hours. No results for input(s): ALKPHOS, ALT, AST, PROT, BILITOT, BILIDIR, LIPASE in the last 72 hours. No lab exists for component: LABALBU Imaging Studies: ASSESSMENT Based on today's evaluation, the patient is a candidate for Laparoscopic Sleeve Gastrectomy. She chose Laparoscopic Sleeve Gastrectomy and Laparoscopic Liver Biopsy. In anticipation of weight reductive surgery now or in the future, we spent a great deal of time discussing the risks and benefits of , including but not limited to injury to intra-abdominal organs, breakdown of the gastric staple line, the need for re-operative therapy, prolonged hospitalization, mechanical ventilation, and . We discussed the possibility of bleeding, the need for blood transfusions, blood clots, hospital-acquired and intra-abdominal infection, anastomotic stricture, and worsening GERD. And we discussed the need for post-operative visit compliance, behavior modifications and diet changes, protein and vitamin supplementation, as well as routine scheduled and dedicated exercise. We discussed the potential weight loss benefit of approximately 60-70% of her excess body weight at 12-18 months post-op, as well as the possibility of insufficient weight loss or weight gain after 2 years post-operative time. Upon completion of all required pre-operative testing we will submit for insurance pre-authorization. PLAN Encounter Diagnosis Name Primary? Morbid obesity with BMI of 50.0-59.9, adult (HCC) Yes I have recommended proceeding with the evaluation and work-up for the primary procedure as outlined below: PATIENT SUMMARY Jodeejose Rojas Katie GARCIA 23 y.o. female with Body mass index is 56.1 kg/m . Laparoscopic Sleeve Gastrectomy and Laparoscopic Liver Biopsy Procedure DM[] HTN[] SARAI[] GERD[x] HL[] OA[] TOB[] Date of Surgery: TBD NOTES MP PCP: INITIAL TESTING RESULTS Labwork [x] CMP, TSH, Fasting Lipid Profile, Mg, Zinc, Vit B1 (whole blood), Vit B12, 25-OH Vit D, Fe, Ferritin, Folate Tobacco [x] Serum Nicotine / Cotinine [] Negative [] Positive EGD [x] Dx: [x] GERD [] Dyspepsia [] Other Pathology [x] H. pylori [] Negative [] Positive UGI [] [] not ordered US Abdomen [] [] not ordered SARAI eval [] [] On CPAP / Obtain settings Hematology [] [] Hypercoagulation panel Toxicology [x] [x] Urine drug screen [x] EtOH screen Addtional [] [x] Hgb A1c INITIAL CONSULTATIONS CLEARANCE / MANAGEMENT Psychology [x] Dietitian [x] Cardiology [x] Pulmonary [x] Others [] []Heme/Onc []Psychiatry []Pain mgmt PSD [] Physician supervised diet: []None []3 mos [x]6 mos Preop diet [] Preop low calory diet: []None []1 wk [x]2 wks []Ext. FINAL PRE-OP TESTING RESULTS Labwork [x] [x]Pre-op CBC [x]BMP []Serum Nicotine / Cotinine EKG [x] CXR [x] POST-OP MEDICATIONS Ulcer Ppx [] Omeprazole 20 mg PO []QD []BID Gallstone Ppx [] Ursodiol 300 mg []BID DVT Ppx [] DVT prophylaxis per final preop visit estimated risk Estimated calculated risk: % Schedule final pre-operative office visit with surgeon, pre-operative education class, and pre-operative exercise class prior to date of surgery ATTESTATION I reviewed with the patient the details of the proposed operation. The risks benefits and options were discussed. Risks included but were not limited to bleeding, infection, damage to other surrounding organs, cardio-pulmonary complications related to anesthesia, conversion from laparoscopic to and open procedure, the need for reoperative or endoscopic therapy, the potential for prolonged mechanical ventilation, and . All questions were fully answered to the patient's satisfaction and they wish to proceed with surgical intervention. Sleeve Liver biopsy The face to face encounter was spent counseling the patient and discussing the risks,benefits and options of surgery as well as the perioperative care plan. The patient was seen and examined independently and relevant data including a full chart rreview was performed by myself. Cassandra PozDALY polk FACS Director - Minimally Invasive Surgery ---[facility]--- Patient Care Team: Eugene Pires DO as PCP - General Cassandra Voss DO as Surgeon (General Surgery) [facility] SURGICAL WEIGHT LOSS MANAGEMENT PROGRAM Rooming Note - INITIAL CONSULTATION Patient: Michoacano Wilson Date of : 2000 Service Date: 02/07/2024 Patient is here today to discuss the possibility of weight loss surgery. Physician Supervised D/E: 6M Weight Metrics: Vitals BP: 109/73 Heart Rate: 64 Resp: 18 Temp: 36.4 C (97.5 F) Baseline Measures Initial Height: 5' 6 (167.6 cm) Initial Weight: 347 lb 9.6 oz (158 kg) Initial BMI: 56.1 Initial EBW: 217 lb 9.6 oz (98.7 kg) Initial Waist Cricumference: 64.25in Initial Neck Circumference: 16.5in History of Difficult Intubation: No Patient is not on home O2 Completed by: Florina Plummer MA documented in this encounter [facility] 02-07-2024 Note BARIATRIC AND METABO LIC SURGERY [facility] INITIAL EVALUATION - HISTORY AND PHYSICAL 02/07/2024 PATIENT: Michoacano Wilson DATE OF : 2000 ------ HISTORY OF PRESENT ILLNESS Chief Complaint: Morbid Obesity and associated comorbid conditions. Michoacano Wilson is a 23 y.o. female with morbid obesity and associated comorbid conditions who [facility] for bariatric surgery. The patient stands Height: 5' 6 (167.6 cm) tall with a weight of Weight: (!) 347 lb 9.6 oz (158 kg) , and has a BMI of Body mass index is 56.1 kg/m?.. The patient has failed multiple attempts at non-surgical weight loss, and is now seeking surgical intervention to promote permanent and consistent weight loss. The patient suffers from multiple co-morbidities as a result of morbid obesity as outlined in the past medical history. The patient denies a history of myocardia infarction, deep vein thrombosis, pulmonary embolism, renal failure, hepatic failure, stroke, and seizure. She does smoke, and does drink alcohol. - vaping Review of Systems All other systems reviewed and are negative. PAST HISTORIES Past Medical History: Diagnosis Date ADHD (attention deficit hyperactivity disorder) Anxiety panic attacks Depression Morbid obesity, unspecified obesity type (HCC) 02/02/2024 Obesity Snoring Past Surgical History: Procedure Laterality Date APPENDECTOMY 2022 SECTION, CLASSIC 2020 TONSILLECTOMY AND ADENOIDECTOMY (HISTORICAL) Family History Problem Relation Name Age of Onset Learning disabilities Mother High Blood Pressure Mother Substance Abuse Mother Depression Mother Other ([id number]) Mother ADD Other ([id number]) Father ADHA Arthritis Mother Arthritis Father High Blood Pressure Father Learning disabilities Father Social History Tobacco Use Smoking status: Every Day Current packs/day: 0.50 Average packs/day: 0.5 packs/day for 1.9 years (1.0 ttl pk-yrs) Types: Cigarettes Start date: 2022 Smokeless tobacco: Never Substance Use Topics Alcohol use: Yes Alcohol/week: 1.0 standard drink of alcohol Types: 1 Standard drinks or equivalent per week Patient's Medications No medications on file No Known Allergies PHYSICAL EXAM BP 109/73 Pulse 64 Temp 36.4 ?C (97.5 ?F) Resp 18 Ht 5' 6 (1.676 m) Wt (!) 347 lb 9.6 oz (158 kg) BMI 56.10 kg/m? Physical Exam Constitutional: Appearance: Normal appearance. HENT: Head: Normocephalic and atraumatic. Mouth/Throat: Mouth: Mucous membranes are moist. Pharynx: Oropharynx is clear. Eyes: Extraocular Movements: Extraocular movements intact. Conjunctiva/sclera: Conjunctivae normal. Cardiovascular: Rate and Rhythm: Normal rate and regular rhythm. Pulmonary: Effort: Pulmonary effort is normal. Breath sounds: Normal breath sounds. Abdominal: General: Abdomen is flat. Bowel sounds are normal. Musculoskeletal: Cervical back: Normal range of motion and neck supple. Neurological: Mental Status: She is alert. LABORATORY STUDIES AND IMAGING Laboratory Studies: No results for input(s): NA, K, CL, CO2, BUN, CREATININE, GLUCOSE, CALCIUM in the last 72 hours. No results for input(s): WBC, RBC, HGB, HCT, MCV, MCH, MCHC, RDW, PLT, MPV in the last 72 hours. No results for input(s): ALKPHOS, ALT, AST, PROT, BILITOT, BILIDIR, LIPASE in the last 72 hours. No lab exists for component: LABALBU Imaging Studies: ASSESSMENT Based on today's evaluation, the patient is a candidate for Laparoscopic Sleeve Gastrectomy. She chose Laparoscopic Sleeve Gastrectomy and Laparoscopic Liver Biopsy. In anticipation of weight reductive surgery now or in the future, we spent a great deal of time discussing the risks and benefits of , including but not limited to injury to intra-abdominal organs, breakdown of the gastric staple line, the need for re-operative therapy, prolonged hospitalization, mechanical ventilation, and . We discussed the possibility of bleeding, the need for blood transfusions, blood clots, hospital-acquired and intra-abdominal infection, anastomotic stricture, and worsening GERD. And we discussed the need for post-operative visit compliance, behavior modifications and diet changes, protein and vitamin supplementation, as well as routine scheduled and dedicated exercise. We discussed the potential weight loss benefit of approximately 60-70% of her excess body weight at 12-18 months post-op, as well as the possibility of insufficient weight loss or weight gain after 2 years post-operative time. Upon completion of all required pre-operative testing we will submit for insurance pre-authorization. PLAN Encounter Diagnosis Name Primary? Morbid obesity with BMI of 50 (more content not included)... [facility] 04-19-2023 Miscellaneous Notes Called and spoke to patient, stated sent message to wrong doctor. Rosaura Aldana LPN April 19, 2023 1:18 PM documented in this encounter [facility] 03-30-2022 History of Presen t illness Narrative Subjective: Patient is status post laparoscopic appendectomy completed [facility] on 03/23/2022 pathology report came back as acute appendicitis with acute serositis. Patient is tolerating a diet moving her bowels without difficulty. Objective:Blood pressure 118/64, pulse 120, temperature 36.8 C (98.3 F), height 170.2 cm (5' 7), weight (!) 143.6 kg (316 lb 9.6 oz), SpO2 100 %. Incisions are clean without signs of infection Assessment: Aftercare Plan: It is a okay for her to go back to work. She can follow-up with me on an as-needed basis. documented in this encounter [facility] 03-30-2022 Nurse Note REVIEW OF SYSTEMS: General: The patient denies fatigue, denies weight loss, denies weight gain, denies feeling hot, and denies feelings of cold. Eyes: The patient denies glaucoma, denies eye injury/surgery, does not wear glasses or contacts. Ear/Nose/Throat: The patient denies allergies, denies hayfever, denies ear infections, and denies bloody noses. Cardiovascular: The patient denies chest pain, denies heart disease, denies high blood pressure,denies cardiac stent, denies prior heart attack, denies irregular heart beat, denies high cholesterol, denies poor circulation, denies heart failure, other cardiac issues, denies claudication, denies cold feet, denies peripheral arterial stent. Respiratory: The patient denies tuberculosis, denies pneumonia, denies frequent cough, denies pulmonary embolism, denies shortness of breath, and denies coughing up blood. Gastrointestinal: The patient denies difficulty swallowing, denies acid reflux, denies ulcers, denies vomiting, denies jaundice/hepatitis, denies gallbladder problems, denies black or tarry stools, denies hemorrhoids, denies bleeding from rectum, denies diverticulitis, denies constipation, denies diarrhea, denies loss of stool control, and denies hernias. Kidney/Bladder: The patient denies kidney stones, denies urine infections, and denies bloody urine. Skin: The patient denies a history of skin cancer, denies bleeding/changing moles, and denies a history of skin rash. Neurologic: The patient denies a history of epilepsy/convulsions, denies headaches, denies head/spinal injuries, and denies stroke/TIA. Psychiatric: The patient denies psychiatric medications, NOTES depression, and denies voices, denies substance abuse. Endocrine: The patient denies thyroid disorders, denies diabetes, and denies hormonal problems. Hematologic: The patient denies a history of bruising, denies bleeding, and denies anemia, denies blood clots. Infections: The patient denies a history of measles and mumps, denies rheumatic fever, and denies sexually transmitted diseases. Musculoskeletal: The patient denies back pain/injury, denies back problems, denies sciatica, denies knee/foot trouble, denies arthritis, or denies gout. When was patient's last Mammogram screening? N/A Last Colonoscopy: None Skye Kearney RN documented in this encounter [facility] 03-23-2022 Discharge summary Note Date/Time March 23, 2022 1:46pm [facility] Medical Records Department [address] [place] [address] Instructions for Home/Discharge Instructions 03/23/22 1346 MR#: [id number] Acct: [id number] Name: MICHOACANO WILSON Rep #:[id number] : 2000 21 From: Saurabh Solomon MD PCP: Care Physician,No [place] [facility] [place] Inst[place] Procedure Appendectomy Diet Discharge Diet: Light diet - advance as tolerated (if you have questions about your diet instructions, please talk to you doctor.) Activity Discharge Activity: May Not Drive (for 3-5 days or while taking narcotic pain meds.) May shower in (days): 1 Dressing / Incision Call your doctor if your incision/area has: Continuous Slow Oozing, Sudden Increased Bleeding, Increased Pain/ Swelling, Increased Redness and Foul Smelling Discharge Call your doctor if you observe: Fever of 101 or Higher Suture Line Care: Avoid Pulling/Pushing and Avoid Pinching/Bending Additional Dressing/Incision Instructions:: Keep dressing clean and dry. Changeor remove dressing in 2 days. Leave steri strips for 1 week. May protect with a gauze bandaid. Follow Up Care Please Follow Up With: Radha Hilario PA-C When: Call office to schedule an appointment to be seen in 1 week. Test Results: Test results from this visit will be discussed in further detail at your follow-up appointment, if applicable. Discharge Plan Admission Attending Provider: Saurabh Solomon Primary Care Provider: Tian Physician,Brenda Primary Discharge Orders/Prescriptions Prescriptions: New oxycodone-acetaminophen [Endocet] 5-325 mg tablet 1 tab PO Q4H PRN (Reason: pain) 5 Days Qty: 20 0RF Referrals / Follow Up: Care Physician,Brenda Primary [Primary Care Provider] - Radha Hilario PA-C [Med Staff - Adv Practice Prof] - Disposition Disposition (needs filled in before D/C Order can be placed): Home, Self Care 03/23/22 1346<Electronically signed by Saurabh Solomon MD>Saurabh Solomon MD CC: No Primary Care Physician ~ Signed [facility] Work Phone: 1([phone]) 553-166701-16-[address] Solomon [facility] March 23, 2022 12:54pm Note Date/Time March 23, 2022 1 2:54pm [facility] Medical Records Department [address] [place] [id number] Consultation - Surgical 03/23/22 1251 MR#: [id number] Acct: [id number] Name: MICHOACANO WILSON Rep #:[id number] : 2000 21 From: Saurabh Solomon MD PCP: Care Physician,No Primary Status :[facility] Location: [place] [address] Assessment & Plan Assessment/Plan (1) Acute appendicitis: PLAN: Did discuss the anatomy and procedure: laparoscopic appendectomy, possibleopen with the patient. Including risks, but not limited to, bleeding, infection (superficial or intraabdominal), injury to another organ (small bowel, colon, ureter, etc.) requiring additional procedures, and blood clots. Also, discussed the pre- op, colon prep and antibiotics. All questions were answered. HPI Consult Data Date of Consult: 03/23/22 HPI Narrative HPI Narrative: MICHOACANO WILSON, is a 21 F who presenting with right lower quadrant abdominal painand periumbilical abdominal pain which started this morning at about 2 AM.? She has had some nausea but has not vomited.? She also admits to some diarrhea.? Shehas not had a fever.? Denies urinary complaints or vaginal complaints.? No history of kidney stones or ovarian cysts.? She states the pain is increasing and describes it as a sharp/achy pain.? Patient was seen in urgent care and referred to the ER for concern for appendicitis.? Patient reports no abdominal surgeries previously.? She reports no medication allergies..? She has low suspicion for as she is on the Depo-Provera shot. CT scan of the abdomen did show acute appendicitis. [facility] Medical History ADHD Post depression Medical History no medical history Home Medications NK 03/23/22 [History Last Taken Unknown] Allergy/AdvReac Type Severity Reaction Status Date / Time No Known Allergies Allergy Verified 03/23/22 09:13 Surgical History History of tonsillectomy Surgical History no surgical history Social History Smoking Status: Never smoker ROS ENT HEENT: Denies abnormal hearing Cardiovascular Cardiovascular: Denies chest pain Respiratory/Chest Respiratory/Chest: Denies cough or dyspnea Gastrointestinal Gastrointestinal: Reports abdominal pain Physical Exam Const alert, oriented x3 and no apparent distress HEENT normocephalic and head/scalp atraumatic Eyes PERRL and EOMs intact bilaterally Resp clear to auscultation bilaterally Cardio Rate: regular rate Rhythm: regular rhythm GI soft to palpation Palpation: tender RLQ and McBurney's point; Negative for guarding Lab / Micro Data Result Diagrams: 03/23/22 09:20 03/23/22 09:20 Labs: Laboratory Results - last 24 hr 03/23/22 09:20: WBC 13.4 H, RBC 4.51, Hgb 12.1, Hct 39.5, MCV 87.6, MCH 26.8 L, MCHC 30.6 L, RDW Std Deviation 47.4 H, RDW Coeff of Mckayla 14.7 H, Plt Count 328, MPV 10.0, Immature Gran % (Auto) 0.500, Neut % (Auto) 79.0 H, Lymph % (Auto) 12.6 L, [place] % (Auto) 6.4, Eos % (Auto) 1.0, Baso % (Auto) 0.5, Absolute Neuts (auto) 10.6 H, Absolute Lymphs (auto) 1.70, Nucleated RBC % 0 03/23/22 09:20: Sodium 139, Potassium 4.2, Chloride 108 H, Carbon Dioxide 25.0, Anion Gap 6, BUN 12, Creatinine 0.67, Estim Creat Clear Calc 126.99, Est GFR (MDRD) Af Amer 140, Est GFR (MDRD) Non-Af 115, BUN/Creatinine Ratio 17.9, Glucose 105, Calcium 8.4 L, Total Bilirubin 0.50, AST 23, ALT 24, Alkaline Phosphatase 66, Total Protein 7.1, Albumin 3.4, Globulin 3.7, Albumin/Globulin Ratio 0.9 03/23/22 10:00: Urine Color Yellow, Urine Clarity Sl. Cloudy, Urine pH 6.0, Ur Specific [place] 1.020, Urine Protein Negative, Urine Glucose (UA) Normal, UrineKetones Negative, Urine Occult Blood Negative, Urine Nitrite Negative, Urine Bilirubin Negative, Urine Urobilinogen Normal, Ur Leukocyte Esterase Negative, Urine RBC 0 SEEN, Urine WBC 0 SEEN, Ur Squamous Epith Cells 0-5 SEEN, Urine Bacteria 0 SEEN, Urine Mucus 0 SEEN, Urine Test Negative Radiology Impression Abdomen/Pelvis CT 03/23/22 09:26 IMPRESSION: Thickened appendix with increased markings in the surrounding peritoneal fat in keeping with acute noncomplicated appendicitis. Small solitary gallstone. Small umbilical hernia. Electronically Signed: Margarito Blanco MD at 11:22 EST , 03/23/22 8864 <Electronically signed by Saurabh Solomon MD> Cosigner Signature (if applicable): CC: No Primary Care Physician~ Signed [facility] Work Phone: [phone]) 192-866301-16-[address] oMlina [facility] March 23, 2022 12:08pm Note Date/Time March 23, 2022 9 :29am [facility] Medical Records Department [address] [place] [address] Emergency Department Summary 03/23/22 MR#: [id number] Acct: [id number] Name: MICHOACANO WILSON Rep #:[id number] : 2000 21 From: Jason Molina DO PCP: Care Physician,No Primary Status :REG ER Location: ED HPI HPI - GI History of Present Illness Chief Complaint: Abd Pain Narrative Narrative: 20-year-old female presenting with right lower quadrant abdominal pain and periumbilical abdominal pain which started this morning at about 2 AM. She has had some nausea but has not vomited. She also admits to some diarrhea. She hasnot had a fever. Denies urinary complaints or vaginal complaints. No history of kidney stones or ovarian cysts. She states the pain is increasing and describes it as a sharp/achy pain. Patient was seen in urgent care and referredto the ER for concern for appendicitis. Patient reports no abdominal surgeries previously. She reports no medication allergies.. She has low suspicion for as she is on the Depo-Provera shot. PFSH PFS Medical History no medical history Home Medications NK 03/23/22 [History Last Taken Unknown] Allergy/AdvReac Type Severity Reaction Status Date / Time No Known Allergies Allergy Verified 03/23/22 09:13 Surgical History no surgical history Social History Smoking Status: Never smoker ROS ROS ED Constitutional Constitutional ED: Denies chills, fever(s) or sweats Eyes Eyes: Denies blurry vision or change in vision ENT ENT ED: Denies ear pain or sore throat Cardiovascular Cardiovascular: Denies chest pain, palpitations or racing heartbeat Respiratory/Chest Respiratory/Chest: Denies cough, dyspnea or sputum Gastrointestinal Gastrointestinal: Reports abdominal pain, diarrhea and nausea; Denies constipation or vomiting Genitourinary Genitourinary ED: Denies dysuria, hematuria or urinary frequency Musculoskeletal Musculoskeletal: Denies arthralgias, myalgias or neck pain Integumentary Denies abscess, Abrasions or rash Neurologic Neurologic: Denies headache(s), paresthesias or weakness Psychiatric Psychiatric: Denies anxiety, depression, suicidal ideation or suicidal thoughts Endocrine Endocrinology: Denies polydipsia or polyuria EXAM Physical Exam Const Vital Signs: 03/23/22 09:14 03/23/22 11:24 Temperature 96.5 F L Temperature Source Temporal Pulse Rate 74 84 Respiratory Rate 18 18 Blood Pressure 129/77 H 126/80 H Blood Pressure Mean 94 95 Pulse Ox 99 99 Oxygen Delivery Method Room Air Positive well nourished General Appearance ED: NAD; Negative for pallor HEENT Reports moist mucous membranes normocephalic Eyes PERRL and EOMs intact bilaterally General Eye ED: Negative for pale conjunctiva or scleral icterus Neck no lymphadenopathy Resp normal respiratory effort and clear to auscultation bilaterally Effort and Inspection: Negative for respiratory distress Cardio regular rate and regular rhythm GI Palpation: tender RLQ and Rovsing's sign Back/Spine no CVA tenderness Neuro CN's II-XII intact bilaterally Sensorium / Orientation: alert, oriented to person, oriented to place and oriented to time Motor Exam: strength 5/5 throughout Psych mental status grossly normal Skin no wounds General Skin Exam: Negative for jaundice or pallor MDM MDM MDM Narrative Medical decision making narrative: Patient seen and evaluated on arrival. Vital signs are stable and she is afebrile. She states has had worsening periumbilical and right lower quadrant pain since about 2 AM this morning. She is nauseous without vomiting. Patient reports she was at the urgent care prior to coming to the emergency room. On arrival she does have McBurney point tenderness. She also has a Rovsing. A line was established and patient was given morphine 4 mg and Zofran 4 mg. CBC was obtained to assess white blood cell count and differential. This does show a leukocytosis of 13.4. There is also a slight left shift. Platelets normal at328. Hemoglobin is normal at 12.1. CMP was obtained to assess liver function, renal function, electrolytes. These all appear to be normal. Urinalysis obtained to assess for occult blood or infection is negative for any other. Urine test is also negative l. Given concern for appendicitis CT of the abdomen pelvis was ordered with IV contrast which shows acute uncomplicated appendicitis. On reevaluation the patient is still complaining of pain and she was given 0.5 mg of Dilaudid and she was given a liter of normal saline. Patient kept NPO. Patient was discussed with Dr. Solomon who is on-call for general surgery. Patient transported to the OR in stable condition. Impression: 1. Acute appendicitis 2. Nausea 3. Leukocytosis Lab Data Attestation: I reviewed the patient's lab results. Labs: Laboratory Results - last 24 hr 03/23/22 03/23/22 03/23/22 09:20 09:20 10:00 WBC 13.4 H RBC 4.51 Hgb 12.1 Hct 39.5 MCV 87.6 MCH 26.8 L MCHC 30.6 L RDW Std Deviation 47.4 H RDW Coeff of Mckayla 14.7 H Plt Count 328 MPV 10.0 Immature Gran % (Auto) 0.500 Neut % (Auto) 79.0 H Lymph % (Auto) 12.6 L [place] % (Auto) 6.4 Eos % (Auto) 1.0 Baso % (Auto) 0.5 Absolute Neuts (auto) 10.6 H Absolute Lymphs (auto) 1.70 Nucleated RBC % 0 Sodium 139 Potassium 4.2 Chloride 108 H Carbon Dioxide 25.0 Anion Gap 6 BUN 12 Creatinine 0.67 Estim Creat Clear Calc 126.99 Est GFR (MDRD) Af Amer 140 Est GFR (MDRD) Non-Af 115 BUN/Creatinine Ratio 17.9 Glucose 105 Calcium 8.4 L Total Bilirubin 0.50 AST 23 ALT 24 Alkaline Phosphatase 66 Total Protein 7.1 Albumin 3.4 Globulin 3.7 Albumin/Globulin Ratio 0.9 Urine Color Yellow Urine Clarity Sl. Cloudy Urine pH 6.0 Ur Specific [place] 1.020 Urine Protein Negative Urine Glucose (UA) Normal Urine Ketones Negative Urine Occult Blood Negative Urine Nitrite Negative Urine Bilirubin Negative Urine Urobilinogen Normal Ur Leukocyte Esterase Negative Urine RBC 0 SEEN Urine WBC 0 SEEN Ur Squamous Epith Cells 0-5 SEEN Urine Bacteria 0 SEEN Urine Mucus 0 SEEN Urine Test Negative Radiography Diagnostic Testing: Clinical Impression(s) from Imaging Studies Abdomen/Pelvis CT 03/23/22 09:26 IMPRESSION: Thickened appendix with increased markings in the surrounding peritoneal fat in keeping with acute noncomplicated appendicitis. Small solitary gallstone. Small umbilical hernia. Electronically Signed: Margarito Blanco MD at 11:22 EST , Discharge Plan Triage Chief Complaint: Abd Pain ED Provider: Jason Molina Dx/Rx/DC Orders Prescriptions: No Action NK Primary Care Provider: Care Physician,No Primary Referrals: Care Physician,No Primary [Primary Care Provider] - What to do if you have Problems For any increased pain, shortness of breath, bleeding, nausea or vomiting, chestpain, or any unexpected problems, contact your Primary Care Provider. Call [facility] ([phone]) or report to the closest Emergency Room. Call 911 if necessary. 03/23/22 1208 <Electronically signed by Jason Molina DO> Cosigner Signature (if applicable): CC: No Primary Care Physician ~ Signed [facility] Work Phone: [phone]) 793-804901-16-2023 Procedure [facility] 03-23-[address] Molina [facility] March 23, 2022 12:08pm Note Date/Time March 23, 2022 9 :29am [facility] Medical Records Department [address] [place] [address] Emergency Department Summary 03/23/22 MR#: [id number] Acct: [id number] Name: MICHOACANO WILSON Rep #:[id number] : 2000 21 From: Jason Molina DO PCP: Care Physician,No Primary Status :REG ER Location: ED HPI HPI - GI History of Present Illness Chief Complaint: Abd Pain Narrative Narrative: 20-year-old female presenting with right lower quadrant abdominal pain and periumbilical abdominal pain which started this morning at about 2 AM. She has had some nausea but has not vomited. She also admits to some diarrhea. She hasnot had a fever. Denies urinary complaints or vaginal complaints. No history of kidney stones or ovarian cysts. She states the pain is increasing and describes it as a sharp/achy pain. Patient was seen in urgent care and referredto the ER for concern for appendicitis. Patient reports no abdominal surgeries previously. She reports no medication allergies.. She has low suspicion for as she is on the Depo-Provera shot. PFSH PFS Medical History no medical history Home Medications NK 03/23/22 [History Last Taken Unknown] Allergy/AdvReac Type Severity Reaction Status Date / Time No Known Allergies Allergy Verified 03/23/22 09:13 Surgical History no surgical history Social History Smoking Status: Never smoker ROS ROS ED Constitutional Constitutional ED: Denies chills, fever(s) or sweats Eyes Eyes: Denies blurry vision or change in vision ENT ENT ED: Denies ear pain or sore throat Cardiovascular Cardiovascular: Denies chest pain, palpitations or racing heartbeat Respiratory/Chest Respiratory/Chest: Denies cough, dyspnea or sputum Gastrointestinal Gastrointestinal: Reports abdominal pain, diarrhea and nausea; Denies constipation or vomiting Genitourinary Genitourinary ED: Denies dysuria, hematuria or urinary frequency Musculoskeletal Musculoskeletal: Denies arthralgias, myalgias or neck pain Integumentary Denies abscess, Abrasions or rash Neurologic Neurologic: Denies headache(s), paresthesias or weakness Psychiatric Psychiatric: Denies anxiety, depression, suicidal ideation or suicidal thoughts Endocrine Endocrinology: Denies polydipsia or polyuria EXAM Physical Exam Const Vital Signs: 03/23/22 09:14 03/23/22 11:24 Temperature 96.5 F L Temperature Source Temporal Pulse Rate 74 84 Respiratory Rate 18 18 Blood Pressure 129/77 H 126/80 H Blood Pressure Mean 94 95 Pulse Ox 99 99 Oxygen Delivery Method Room Air Positive well nourished General Appearance ED: NAD; Negative for pallor HEENT Reports moist mucous membranes normocephalic Eyes PERRL and EOMs intact bilaterally General Eye ED: Negative for pale conjunctiva or scleral icterus Neck no lymphadenopathy Resp normal respiratory effort and clear to auscultation bilaterally Effort and Inspection: Negative for respiratory distress Cardio regular rate and regular rhythm GI Palpation: tender RLQ and Rovsing's sign Back/Spine no CVA tenderness Neuro CN's II-XII intact bilaterally Sensorium / Orientation: alert, oriented to person, oriented to place and oriented to time Motor Exam: strength 5/5 throughout Psych mental status grossly normal Skin no wounds General Skin Exam: Negative for jaundice or pallor MDM MDM MDM Narrative Medical decision making narrative: Patient seen and evaluated on arrival. Vital signs are stable and she is afebrile. She states has had worsening periumbilical and right lower quadrant pain since about 2 AM this morning. She is nauseous without vomiting. Patient reports she was at the urgent care prior to coming to the emergency room. On arrival she does have McBurney point tenderness. She also has a Rovsing. A line was established and patient was given morphine 4 mg and Zofran 4 mg. CBC was obtained to assess white blood cell count and differential. This does show a leukocytosis of 13.4. There is also a slight left shift. Platelets normal at328. Hemoglobin is normal at 12.1. CMP was obtained to assess liver function, renal function, electrolytes. These all appear to be normal. Urinalysis obtained to assess for occult blood or infection is negative for any other. Urine test is also negative l. Given concern for appendicitis CT of the abdomen pelvis was ordered with IV contrast which shows acute uncomplicated appendicitis. On reevaluation the patient is still complaining of pain and she was given 0.5 mg of Dilaudid and she was given a liter of normal saline. Patient kept NPO. Patient was discussed with Dr. Solomon who is on-call for general surgery. Patient transported to the OR in stable condition. Impression: 1. Acute appendicitis 2. Nausea 3. Leukocytosis Lab Data Attestation: I reviewed the patient's lab results. Labs: Laboratory Results - last 24 hr 03/23/22 03/23/22 03/23/22 09:20 09:20 10:00 WBC 13.4 H RBC 4.51 Hgb 12.1 Hct 39.5 MCV 87.6 MCH 26.8 L MCHC 30.6 L RDW Std Deviation 47.4 H RDW Coeff of Mckayla 14.7 H Plt Count 328 MPV 10.0 Immature Gran % (Auto) 0.500 Neut % (Auto) 79.0 H Lymph % (Auto) 12.6 L [place] % (Auto) 6.4 Eos % (Auto) 1.0 Baso % (Auto) 0.5 Absolute Neuts (auto) 10.6 H Absolute Lymphs (auto) 1.70 Nucleated RBC % 0 Sodium 139 Potassium 4.2 Chloride 108 H Carbon Dioxide 25.0 Anion Gap 6 BUN 12 Creatinine 0.67 Estim Creat Clear Calc 126.99 Est GFR (MDRD) Af Amer 140 Est GFR (MDRD) Non-Af 115 BUN/Creatinine Ratio 17.9 Glucose 105 Calcium 8.4 L Total Bilirubin 0.50 AST 23 ALT 24 Alkaline Phosphatase 66 Total Protein 7.1 Albumin 3.4 Globulin 3.7 Albumin/Globulin Ratio 0.9 Urine Color Yellow Urine Clarity Sl. Cloudy Urine pH 6.0 Ur Specific [place] 1.020 Urine Protein Negative Urine Glucose (UA) Normal Urine Ketones Negative Urine Occult Blood Negative Urine Nitrite Negative Urine Bilirubin Negative Urine Urobilinogen Normal Ur Leukocyte Esterase Negative Urine RBC 0 SEEN Urine WBC 0 SEEN Ur Squamous Epith Cells 0-5 SEEN Urine Bacteria 0 SEEN Urine Mucus 0 SEEN Urine Test Negative Radiography Diagnostic Testing: Clinical Impression(s) from Imaging Studies Abdomen/Pelvis CT 03/23/22 09:26 IMPRESSION: Thickened appendix with increased markings in the surrounding peritoneal fat in keeping with acute noncomplicated appendicitis. Small solitary gallstone. Small umbilical hernia. Electronically Signed: Margarito Blanco MD at 11:22 EST , Discharge Plan Triage Chief Complaint: Abd Pain ED Provider: Jason Molina Dx/Rx/DC Orders Prescriptions: No Action NK Primary Care Provider: Care Physician,No Primary Referrals: Care Physician,No Primary [Primary Care Provider] - What to do if you have Problems For any increased pain, shortness of breath, bleeding, nausea or vomiting, chestpain, or any unexpected problems, contact your Primary Care Provider. Call [facility] ([phone]) or report to the closest Emergency Room. Call 911 if necessary. 03/23/22 1208 <Electronically signed by Jason Molina DO> Cosigner Signature (if applicable): CC: No Primary Care Physician ~ Signed [facility] Work Phone: 1(307) 966-560001-16-2023 NoteHNO ID: [id number] Author: Lencho Moyer APRN.[employer] Service: ? Author Type: Nurse Practitioner Type: Progress Notes Filed: 03/23/2022 9:10 AM Note Text: Subjective HPI Nontoxic-appearing female presents urgent care accompanied by significant other. Chief plaint right lower quadrant pain. Duration of symptom 1 day. Associated symptoms worsening right lower abdominal pain. Did have few episodes of loose stool today. Rates pain 8 out of 10. Pain is exacerbated by movement or pushing over the area. Past Medical history prescription medication use allergies reviewed. .Patient presents with: Abdominal Pain: Lower right quadrant , diarrhea x 1 day History reviewed. No pertinent past medical history. History reviewed. No pertinent surgical history. ALLERGIES Patient has no allergy information on record. MEDICATIONS No prescriptions on file. History reviewed. No pertinent family history. Social History Tobacco Use Smoking status: Never Passive exposure: Current Smokeless tobacco: Never BP 110/70 Pulse 75 Temp 36.2 ?C (97.1 ?F) Resp 20 Wt (!) 143 kg (315 lb 3.2 oz) SpO2 100% Review of Systems Constitutional: Negative for chills, fever and malaise/fatigue. HENT: Negative for sore throat. Respiratory: Negative for cough, hemoptysis, sputum production, shortness of breath, wheezing and stridor. Cardiovascular: Negative for chest pain. Gastrointestinal: Positive for abdominal pain and diarrhea. Negative for nausea and vomiting. Musculoskeletal: Negative for myalgias. Skin: Negative for itching and rash. Objective Physical Exam Constitutional: General: She is not in acute distress. Appearance: She is not diaphoretic. HENT: Head: Normocephalic. Eyes: Conjunctiva/sclera: Conjunctivae normal. Pupils: Pupils are equal, round, and reactive to light. Cardiovascular: Rate and Rhythm: Normal rate and regular rhythm. Heart sounds: Normal heart sounds. Pulmonary: Effort: Pulmonary effort is normal. No tachypnea, accessory muscle usage or respiratory distress. Breath sounds: Normal breath sounds. No stridor. No wheezing, rhonchi or rales. Abdominal: General: There is no distension. Palpations: Abdomen is soft. Tenderness: There is abdominal tenderness in the right lower quadrant. There is guarding. Musculoskeletal: Cervical back: Normal range of motion. Skin: General: Skin is warm and dry. Neurological: Mental Status: She is alert and oriented to person, place, and time. ASSESSMENT/PLAN: 1. Abdominal pain, right lower quadrant - ICD9: 789.03, ICD10: R10.31 Patient has significant discomfort with palpation of right lower quadrant. Recommend patient be seen the ED for evaluation care. Will be seen at [facility]. Patient verbalized understanding agrees with plan of care. Lencho Moyer APRN.[facility]01-16-2023 History of Present illness Narrative* Lencho Moyer APRN.FRANCY - 03/23/2022 9:03 AM EST Subjective HPI Nontoxic-appearing female presents urgent care accompanied by significant other. Chief plaint rightlower quadrant pain. Duration of symptom 1 day. Associated symptoms worsening right lower abdominalpain. Did have few episodes of loose stool today. Rates pain 8 out of 10. Pain is exacerbated by movement or pushing over the area. Past Medical history prescription medication use allergies reviewed. .Patient presents with: Abdominal Pain: Lower right quadrant , diarrhea x 1 day History reviewed. No pertinent past medical history. History reviewed. No pertinent surgical history. ALLERGIES Patient has no allergy information on record. MEDICATIONS No prescriptions on file. History reviewed. No pertinent family history. Social History Tobacco Use Smoking status: Never Passive exposure: Current Smokeless tobacco: Never BP 110/70 Pulse 75 Temp 36.2 C (97.1 F) Resp 20 Wt (!) 143 kg (315 lb 3.2 oz) SpO2 100% Review of Systems Constitutional: Negative for chills, fever and malaise/fatigue. HENT: Negative for sore throat. Respiratory: Negative for cough, hemoptysis, sputum production, shortness of breath, wheezing and stridor. Cardiovascular: Negative for chest pain. Gastrointestinal: Positive for abdominal pain and diarrhea. Negative for nausea and vomiting. Musculoskeletal: Negative for myalgias. Skin: Negative for itching and rash. Objective Physical Exam Constitutional: General: She is not in acute distress. Appearance: She is not diaphoretic. HENT: Head: Normocephalic. Eyes: Conjunctiva/sclera: Conjunctivae normal. Pupils: Pupils are equal, round, and reactive to light. Cardiovascular: Rate and Rhythm: Normal rate and regular rhythm. Heart sounds: Normal heart sounds. Pulmonary: Effort: Pulmonary effort is normal. No tachypnea, accessory muscle usage or respiratory distress. Breath sounds: Normal breath sounds. No stridor. No wheezing, rhonchi or rales. Abdominal: General: There is no distension. Palpations: Abdomen is soft. Tenderness: There is abdominal tenderness in the right lower quadrant. There is guarding. Musculoskeletal: Cervical back: Normal range of motion. Skin: General: Skin is warm and dry. Neurological: Mental Status: She is alert and oriented to person, place, and time. ASSESSMENT/PLAN: 1. Abdominal pain, right lower quadrant - ICD9: 789.03, ICD10: R10.31 Patient has significant discomfort with palpation of right lower quadrant. Recommend patient be seen the ED for evaluation care. Will be seen at [facility]. Patient verbalized understanding agrees with plan of care. Lencho Moyer APRN.FRANCY [facility] Discharge instructions Patient Education 02/17/2022 19:29:09 Pharyngitis, Viral Viral Pharyngitis (Sore Throat) You or your child have pharyngitis (sore throat). This infection is caused by a virus. It can causethroat pain that is worse when swallowing, aching all over, headache, and fever. The infection may be spread by coughing, kissing, or touching others after touching your mouth or nose. Antibiotic medicines do not work against viruses. They are not used for treating this illness. Home care If symptoms are severe, you or your child should rest at home. Return to work or school when you oryour child feel well enough. You or your child should drink plenty of fluids to prevent dehydration. Use throat lozenges or numbing throat sprays to help reduce pain. Gargling with warm salt water will also help reduce throat pain. Dissolve 1/2 teaspoon of salt in 1 glass of warm water. Children cansip on juice or a popsicle. Children 5 years and older can also suck on a lollipop or hard candy. Don t eat salty or spicy foods or give them to your child. These can be irritating to the throat. Medicines for a child: You can give your child acetaminophen for fever, fussiness, or discomfort. In babies over 6 months of age, you may use ibuprofen instead of acetaminophen. If your child has chronic liver or kidney disease or ever had a stomach ulcer or GI bleeding, talk with your child s healthcare provider before giving these medicines. Aspirin should never be used by any child under 18 years of age who has a fever. It may cause severe liver damage. Medicines for an adult: You may use acetaminophen or ibuprofen to control pain or fever, unless another medicine was prescribed for this. If you have chronic liver or kidney disease or ever had a stomach ulcer or GI bleeding, talk with your healthcare provider before using these medicines. Follow-up care Follow up with a healthcare provider or our staff if you or your child are not getting better over the next week. When to seek medical advice Call your healthcare provider right away if any of these occur: Fever as directed by your healthcare provider. For children, seek care if: oYour child is of any age and has repeated fevers above 104 F (40 C). oYour child is younger than 2 years of age and has a fever of 100.4 F (38 C) for more than 1 day. oYour child is 2 years old or older and has a fever of 100.4 F (38 C) for more than 3 days. New or worsening ear pain, sinus pain, or headache Painful lumps in the back of neck Stiff neck Lymph nodes are getting larger Can t swallow liquids, a lot of drooling, or can t open mouth wide due to throat pain Signs of dehydration, such as very dark urine or no urine, sunken eyes, dizziness Trouble breathing or noisy breathing Muffled voice New rash Other symptoms are getting worse [id number] [employer]. [address] [place] [address]. All rights reserved. This information is not intended as a substitute for professional medical care. Always follow yourhealthcare professional's instructions. Follow Up Care 02/17/2022 17:03:26 With:Call Physician Referral Address:Unknown When:2-4 days With:Go to emergency room if symptoms worsen Address:Unknown When:2-4 days With:Follow up with primary care provider Address:Unknown When:2-4 days [facility] 12-13-2022 Note Discharge Instructions Thank you for allowing [facility] to assist you with your healthcare needs. The following is importantdischarge information regarding your hospital visit. Diagnosis from Today's Visit Viral pharyngitis Sore throat - Adult What to Do Next Instructions from Your Care Team Take Tylenol and or Motrin as needed for pain or fever. Follow-up results of strep test. If you arestrep positive may benefit from antibiotics. Follow-up with your primary care provider. Return the emergency department if you experience worsening symptoms, unable to swallow, difficulty breathing, or any other care concern. Discharge Return to Work, School, or Sports (Return to Work, School, or Sports) - Ordered -- 02/19/22, May return to: work, 02/17/22 19:59:00 EST Post Acute Orders No qualifying data available. You Need to Schedule the Following Appointments Follow Up with Call Physician Referral When Within 2-4 days Follow Up with Go to emergency room if symptoms worsen When Within 2-4 days Follow Up with Follow up with primary care provider When Within 2-4 days Allergies NKA Medications Please ask your primary doctor or pharmacist before taking any other medication not listed, including over the counter drugs, herbal medications, vitamins and or supplements as they may interact withyour home medications. Please take this list to your next doctor s visit. Bring all medications you take, including over the counter medications, herbals and other supplements with you to your doctor s visit. Patients and families are reminded to discard old lists and to update any records with all medication providers or retail pharmacies. Education Materials Viral Pharyngitis (Sore Throat) You or your child have pharyngitis (sore throat). This infection is caused by a virus. It can causethroat pain that is worse when swallowing, aching all over, headache, and fever. The infection may be spread by coughing, kissing, or touching others after touching your mouth or nose. Antibiotic medicines do not work against viruses. They are not used for treating this illness. Home care If symptoms are severe, you or your child should rest at home. Return to work or school when you oryour child feel well enough. You or your child should drink plenty of fluids to prevent dehydration. Use throat lozenges or numbing throat sprays to help reduce pain. Gargling with warm salt water will also help reduce throat pain. Dissolve 1/2 teaspoon of salt in 1 glass of warm water. Children cansip on juice or a popsicle. Children 5 years and older can also suck on a lollipop or hard candy. Don t eat salty or spicy foods or give them to your child. These can be irritating to the throat. Medicines for a child: You can give your child acetaminophen for fever, fussiness, or discomfort. In babies over 6 months of age, you may use ibuprofen instead of acetaminophen. If your child has chronic liver or kidney disease or ever had a stomach ulcer or GI bleeding, talk with your child s healthcare provider before giving these medicines. Aspirin should never be used by any child under 18 years of age who has a fever. It may cause severe liver damage. Medicines for an adult: You may use acetaminophen or ibuprofen to control pain or fever, unless another medicine was prescribed for this. If you have chronic liver or kidney disease or ever had a stomach ulcer or GI bleeding, talk with your healthcare provider before using these medicines. Follow-up care Follow up with a healthcare provider or our staff if you or your child are not getting better over the next week. When to seek medical advice Call your healthcare provider right away if any of these occur: Fever as directed by your healthcare provider. For children, seek care if: oYour child is of any age and has repeated fevers above 104 F (40 C). oYour child is younger than 2 years of age and has a fever of 100.4 F (38 C) for more than 1 day. oYour child is 2 years old or older and has a fever of 100.4 F (38 C) for more than 3 days. New or worsening ear pain, sinus pain, or headache Painful lumps in the back of neck Stiff neck Lymph nodes are getting larger Can t swallow liquids, a lot of drooling, or can t open mouth wide due to throat pain Signs of dehydration, such as very dark urine or no urine, sunken eyes, dizziness Trouble breathing or noisy breathing Muffled voice New rash Other symptoms are getting worse [phone] [employer]. [address] [place] [address], [place] [address]. All rights reserved. This information is not intended as a substitute for professional medical care. Always follow yourhealthcare professional's instructions. Additional Information VACCINATE! IT SAVES LIVES! Members of the community who have not yet received the COVID-19 vaccine and would like to receive it can visit one of [facility] vaccine clinics. There are many vaccine clinic locations within the [facility]. For locations and available times, please visit [email or web address]. It is important to note that some COVID mobile vaccine clinics are held outdoors and may be canceled in rainy orstormy conditions. To learn more about pediatric vaccinations (ages 5-11), we invite you to visit the [facility] webpage. [email or web address] learn more about the COVID-19 vaccine, we invite you to visit the [facility] website for a list of frequently asked questions. [email or web address] [facility] Patient Portal Access Instructions: Stay connected with your healthcare team and access your personal medical information anytime with the [facility] Patient Portal. If you would like a full copy of your medical records please contact the [facility] Medical Records Department Wednesday through Wednesday between 8a.m. and 4:30p.m. Please follow the directions below to access the portal: 1.Access the email account you provided upon registration to the hospital.2.Look for an invitation email from [facility].3.Open the email and access the invitation link: Accept Invitation to [facility]4.Fill in the required danielson to create your account. Sign into [email or web address] with your username and password that you created in the above steps to stay up to date. You can then view a summary of results, a summary of your visits, and the ability to download your summaries to your computer or send the information securely to a physician. Remember that your healthcare information is confidential, so carefully consider who you will allow to register on the [facility] Patient Portal for access to your information. You can also access the [facility] Patient Portal on the [employer] matt. Simply click on Health Records under [employer] and then click on the [employer] logo. HOW TO SAFELY DISPOSE OF PRESCRIPTION MEDICATIONS Please use one of the following methods to safely dispose of your unused medications. 1.Use a drug disposal kit: the drug disposal pouch allows you to safely discard your old and unuseddrugs. Ask your nurse to give you one when you are discharged.2.Visit a local take-back location: Many local pharmacies and police departments have programs that collect old and unwanted prescriptiondrugs. Call your local pharmacy or go to [email or web address] Point/7C1Hf5j to find one close to you.3.Make use of household items: Use cat litter or old coffee grounds to dispose medications if other options arenot available. Mix your drugs with these household products, seal them in an airtight container andthrow it into the garbage. Call [facility]: [phone] to be sure your drugs can be disposed of in this way. Some medicines may require a different approach.4.Never flush your medications down the toilet. IF YOU HAVE BEEN PRESCRIBED AN OPIOIDS FOR PAIN If you have been prescribed an opioid (such as hydrocodone, oxycodone or morphine), it is critical to understand the possible side effects and risks of opioid pain medications. Even when taken as directed, opioids can have several side effects including: Tolerance, meaning you might need to take more of a medication for the same pain relief. Nausea, vomiting and/or constipation. Sleepiness, dizziness, dry mouth, confusion, depression or itching. Physical dependence, meaning you have withdrawal symptoms when a medication is stopped ? this can develop within a few days. KNOW YOUR RESPONSIBILITIES It is important to know exactly how much and how often to take the opioid pain medications you are prescribed. Never take opioids in higher amounts or more often than prescribed. Do not combine opioids with alcohol or other drugs that cause drowsiness, such as benzodiazepines, also known as benzos,including diazepam and alprazolam, muscle relaxants or sleep aids. Never sell or share prescriptionopioids. This is illegal. Store opioids in a secure place and out of reach of others (including children, family, friends and visitors). The last page(s) of this document has been signed and retained as a CHART COPY Signatures Patient Education Materials Pharyngitis, Viral Medication Leaflets My discharge plan and instructions have been reviewed and explained to me and I,WILSON, AUNCHANEL understand my current condition and have read and understand these discharge instructions. I have received a written copy of the plan/instructions. If I have questions, I am aware that I should contact my doctor. Patient/Medical Device Signature: Date/Time: Relationship to Patient: Witness Name/Signature: Date/Time: [facility]10-[facility]-2021 NoteObstetric Discharge Summary Section Pt Name: Michoacano Wilson Date of : 2000 Admit Date: 12/11/2020 7:56 AM Discharge Date: 12/16/2020 5:15 PM Admitting Diagnosis IUP OB History 1 Para 1 Term 1 AB Living 1 SAB IAB Ectopic Molar Multiple Live Births 1 Discharge Diagnoses: Patient Active Problem List Diagnosis Code ? ADHD (attention deficit hyperactivity disorder) F90.9 ? Morbid obesity (HCC) E66.01 ? Anxiety F41.9 ? Acanthosis nigricans, acquired L83 ? Increased BMI R63.8 ? Snores R06.83 ? Post term over 40 weeks O48.0 ? Encounter for elective induction of labor Z34.90 ? Obesity complicating peripregnancy, antepartum, third trimester O99.213 ? Post-dates O48.0 Reasons for Admission on 12/11/2020 7:56 AM Post-term [O48.0] Post-term [O48.0] 40 weeks gestation of [Z3A.40] Single live [Z37.0] Other mental disorders complicating childbirth [O99.344] Attention-deficit hyperactivity disorder, unspecified type [F90.9] senior care (current) use of non-steroidal anti-inflammatories (nsaid) [Z79.1] Failed medical induction of labor [O61.0] Obesity complicating childbirth [O99.214] Obesity, unspecified [E66.9] No comment available Section Intrapartum Procedures Delivery Date: 12/13/20 Delivery Time: 0840 Delivery Method: , Low Transverse /Operative Complications Complications: (!) Meconium at Data Information for the patient's : Gregg Wilson [[id number]] male Weight: 9 lb 7.5 oz (4.295 kg) Discharge Diagnosis Surgical Procedures: Section Discharge Information Discharge Medication List as of 12/16/2020 3:36 PM CONTINUE these medications which have NOT CHANGED Details ibuprofen (IBU) 600 MG tablet Take 1 tablet by mouth every 6 hours as needed for Pain, Disp-20 tablet, R-0Print lisdexamfetamine (VYVANSE) 30 MG capsule Take 1 capsule by mouth every morning for 30 days.. Earliest Fill Date: 03/26/18, Disp-30 capsule, R-0Print norgestimate-ethinyl estradiol (ORTHO-CYCLEN) 0.25-35 MG-MCG per tablet Take 1 tablet by mouth daily, Disp-1 packet, R-6Normal No discharge procedures on file. Pt was admitted to L&D on 12/11/2020 and proceeded to cesarian section. She was a failure of cytotec induction. Postop she did well and was discharged h ome on 12/16/2020 in stable condition. Diet regular Discharge to: home Follow up in 3-4 wks. Saurabh Stallings, [facility]10-11-2021 History of Present illness Narrative* Ernestine Hart RN - 12/16/2020 5:05 PM EDT Discharge instructions given to patient and family member. No questions at this time. Patient comfortable, discharged via wheelchair. * Saurabh Stallings MD - 12/16/2020 5:00 PM EDT Progress note Subjective: Day 3: Delivery Pain is moderately controlled with current medications. The patient is ambulating well. The patientis tolerating a normal diet. Objective: Vitals: 12/16/20 0748 BP: (!) 121/59 Pulse: 74 Resp: 16 Temp: 98.8 F (37.1 C) SpO2: General: alert, appears stated age and cooperative Uterine Fundus: firm Incision: healing well, no significant drainage, no dehiscence, no significant erythema; incision inspected, dressing removed and another one placed CBC Lab Results Component Value Date WBC 11.9 (H) 12/14/2020 HGB 8.1 (L) 12/14/2020 HCT 24.7 (L) 12/14/2020 PLT 217 12/14/2020 Assessment: Status post section. Doing well postoperatively. Plan: Discharge home with standard precautions and return to office in 4 weeks Saurabh Stallings MD 12/16/2020 5:00 PM * Radha Galvin RN - 12/16/2020 10:08 AM EDT Handed baby to mom per request for feeding. Asked if she was going to put baby to breast first, momsaid no she was just going to do a bottle this time and that she would probably just pump. Education about pumping with every feed to stimulate milk production and supply. Mom verbalized understanding. * Elsi Avendano RN - 12/15/2020 12:24 PM EDT Pt watched discharge teaching video. Reviewed Guide to Caring for Yourself, discharge instructions and home medication list. Encouraged 1) use of the post- warning signs magnet 2) use of the green armband if pre-e hx, and 3) and after discharge to watch for these signs and symptoms: Fever - Oral temperature greater than 100.4 degrees Fahrenheit Foul-smelling vaginal discharge Headache unrelieved by pain medication Difficulty urinating Breasts reddened, hard, hot to the touch Nipple discharge which is foul-smelling or contains pus Increased pain at the site of the laceration Sudden increased vaginal bleeding, soaking a large pad front to back in 1 hour Passing any blood clots bigger than a large egg Difficulty breathing with or without chest pain New calf pain especially if only on one side Unrelieved feelings of inability to cope Patient states understanding and denies questions. Pt watched discharge teaching video. Reviewed Guide to Caring for Yourself, discharge instructions and home medication list. Encouraged 1) use of the post- warning signs magnet 2) use of the green armband if pre-e hx, and 3) and after discharge to watch for these signs and symptoms: Fever - Oral temperature greater than 100.4 degrees Fahrenheit Foul-smelling vaginal discharge Headache unrelieved by pain medication Difficulty urinating Breasts reddened, hard, hot to the touch Nipple discharge which is foul-smelling or contains pus Increased pain at the site of the laceration Sudden increased vaginal bleeding, soaking a large pad front to back in 1 hour Passing any blood clots bigger than a large egg Difficulty breathing with or without chest pain New calf pain especially if only on one side Unrelieved feelings of inability to cope Patient states understanding and denies questions. * Elsi Avendano RN - 12/15/2020 9:00 AM EDT Supplemental feeding for ordered for the following medical reason(s):due to 8% weight loss,lower blood sugars, and stock speculator states non-nutritive sucking when . supplemented with:both formula and pumped breast milk . Alternative feeding methods discussed and encouraged. Supply and demand of milk production reviewed, and pt educated on importance of hand expression and / or pumping if supplementation is used. Pt chooses to supplement via the bottle at this time. Decision affirmed and supported. Supplies provided and instruction given. If formula used, [facility] handout on formula feeding, preparation and storage provided and reviewed. Pt / family verbalizes understanding of all education. Paced bottle feeding technique demonstrated and parents return demonstration. Benefits of paced feeding reviewed including allowing baby more control over feeding amount and rate, less over feeding /stomach distention, and less post feeding reflux and fussiness. Paced bottle feeding technique demonstrated and parents return demonstration. Benefits of paced feeding reviewed including allowing baby more control over feeding amount and rate, less over feeding / stomach distention, and less post feeding reflux and fussiness. * Saurabh Stallings MD - 12/15/2020 8:35 AM EDT Images from the original note were not included. Saurabh Stallings MD Physician Obstetrics & Gynecology Op Note Signed Date of Service: 12/15/2020 8:31 AM Signed Show:Clear all [x]Manual[x]Template[]Copied Added by: [x]Saurabh Stallings MD []Hover for details Progress note Subjective: Day 2: Delivery Pain is moderately controlled with current medications. The patient is ambulating well. The patientis tolerating a normal diet. Objective: Vitals: 12/15/20 0128 Pulse: 130 Resp: 60 Temp: 99.2 F (37.3 C) SpO2: General: alert, appears stated age and cooperative Uterine Fundus: firm Incision: healing well, no significant drainage,silver dressing on which we will change tomorrow CBC No results found for: WBC, HGB, HCT, PLT 8.1 last night Assessment: Status post section. Doing well postoperatively. Plan: Continue current care Saurabh Stallings MD 12/15/2020 8:32 AM * Saurabh Stallings MD - 12/14/2020 8:15 PM EDT Hem 8.1; pt doing well * Saurabh Stallings MD - 12/14/2020 2:25 PM EDT Pt awake. She is doing well. She denies light headed or other complaints. We will get h/h at 6 pm. * Elsi Avendaon RN - 12/14/2020 12:57 PM EDT Hand expression of breast milk taught and return demonstration given. Patient able to easily express drops of colostrum. Patient educated that hand expression can be helpful in assisting baby with latch and stimulating milk production. Encouraged frequent hand expression - before, after and betweenfeeds - to boost milk production. RN instructed pt on breast pump use and assisted. RN instructed pt to breastfeed baby first with feedings and then pump if needed after feedings. * Saurabh Stallings MD - 12/14/2020 10:32 AM EDT Progress note Subjective: Day 1: Delivery Pt asleep so I will come back later today as I am the house doc for 24 hrs. Objective: Vitals: 12/14/20 0756 BP: (!) 106/43 Pulse: 71 Resp: 18 Temp: 98.9 F (37.2 C) SpO2: CBC Lab Results Component Value Date HGB 7.1 (L) 12/14/2020 We will get another h/h at 6 pm tonight. Pulse of 71. Plan: Advance diet. Remove garcia. UA C&S. Ambulate Saurabh Stallings MD 12/14/2020 11:44 AM * Sara Gonzalez RN - 12/13/2020 7:31 PM EDT Pt up to bathroom w/ assist. Pericare taught and completed. Daniela rinse bottle given. Ambulate to chair w/o incident. Ambulation steady and pt tolerated activity well. * Gladis Richards RN - 12/13/2020 2:15 PM EDT Pt nauseous at this time and vomited approximately 600 mL or liquid emesis. States she feels as though she voided on herself. Catheter in place and clear yellow urine draining. Small amount of lochiarubra noted. Daniela care provided and bed pads and linens changed. * Yudith Cho - 12/13/2020 9:09 AM EDT Nutrition rescreen completed. Patient assigned a level 1. * Gladis Richards RN - 12/13/2020 8:45 AM EDT Vacuum applied at [address] Stallings with a pop-off at 0835. Vacuum reapplied at 0835 and released [id number]. Vacuum reapplied at 0836 and released at 0837. Reapplied at 0837 and released at 0837. Forceps requested by Dr. Stallings and applied at 0839. delivered at 0840. * Saurabh Stallings MD - 12/13/2020 7:27 AM EDT Pt doing well; for c/s this am; Cat 1 tracing * Saurabh Stallings MD - 12/13/2020 12:01 AM EDT Pt doing well; for c/s in am; not christa. * Saurabh Stallings MD - 12/12/2020 8:05 PM EDT Pt now about 6-7 hrs from po dose of cytotec. No regular contractions. NPO after 1830. C/s sched for 8 am tomorrow. We will only monitor 15 min per 3 hrs since no cytotec or pitocin. We considered allowing home and returning in am but with a 1pm po dose of cytotec, decided just to keep in house. I talked with pt and she is doing well. * Saurabh Stallings MD - 12/12/2020 3:19 PM EDT Pt got 2 chicken breast today about 12 noon instead of clear liquid diet that she was ordered. She got po cytotec at 1:54. I discussed with pt that she has not changed from admission, cervix is not ripe at all, no presenting part in pelvis. I told her that I do not feel that she is a candidate to continue induction. After discussion, she was okay with c/s in am at 8. Because of the amt of cytotecshe has had, we do not feel safe in discharge and coming back in am. We will just watch her throughnight and section in am. Pt and in agreement. * Avery Soto DO - 12/12/2020 1:54 PM EDT Images from the original note were not included. Department of Obstetrics and Gynecology Labor and Delivery OB Hospitalist Progress Note 20 y.o. @ 40w5d Patient admitted for induction of labor SUBJECTIVE: Called to evaluate patient for Cytotec placement. OBJECTIVE: Vitals: BP (!) 121/52 Pulse 68 Temp 98 F (36.7 C) (Oral) Resp 16 Ht 5' 5.5 (1.664 m) Wt (!) 317 lb (143.8 kg) SpO2 100% BMI 51.95 kg/m heart rate: Baseline Heart Rate: 125 Accelerations: present Intermediate Variability: moderate Decelerations: absent Contraction frequency: Irregular minutes Presentation: Vertex by ultrasound done on admission Membranes: Intact Cervix: From last exam done this a.m. Dilation: 1 cm Effacement: 50% Station: -3 Consistency: firm Position: posterior Medications: Cytotec 25 mcg orally ASSESSMENT & PLAN: 1. Intrauterine at 40 weeks and 5 days 2. Encounter for elective induction of labor 3. Cytotec induction changed to oral since the 03/11 25 mcg pills were crumbled prohibiting adequate vaginal administration 4. If patient fails to progress further we will let her eat and be n.p.o. after midnight with the thought of doing a tomorrow morning. 5. Case discussed with Dr.Hall Avery Soto DO, LALA, FACOOG December 12, 2020 1:55 PM * Saurabh Stallings MD - 12/12/2020 7:58 AM EDT Still 1 cm; we discussed c/s but pt still wishes to try cytotec. This was placed without complication. Cat 1 tracing * Saurabh Stallings MD - 12/12/2020 2:53 AM EDT cytotec placed without complication; cat 1 tracing; still no more than 1 cm * Saurabh Stallings MD - 12/12/2020 1:36 AM EDT Once 321 is delivered, we will probably insert another cytotec. We have potential of 2 del at once with 321 and 304. Cat 1 tracing. * Saurabh Stallings MD - 12/11/2020 10:08 PM EDT Still about 1 cm; pt is christa too close for another cytotec; Cat 1 tracing * Saurabh Stallings MD - 12/11/2020 7:08 PM EDT Pt about 25 min ago started tachycardia 170-180. I just checked her and she is about 9 cm. Pt feelshot to touch though temp in axilla is 99.7. She currently is on ampicillin every 4 hrs. We will increase fluids and monitor. * Avery Soto DO - 12/11/2020 3:00 PM EDT Images from the original note were not included. Department of Obstetrics and Gynecology Labor and Delivery OB Hospitalist Progress Note 20 y.o. @ 40w4d Patient admitted for IOL SUBJECTIVE: Called to evaluate patient for placement of Cytotec No. 2 OBJECTIVE: Vitals: BP (!) 117/57 Pulse 78 Temp 98 F (36.7 C) (Oral) Resp 19 Ht 5' 5.5 (1.664 m) Wt (!) 317 lb (143.8 kg) BMI 51.95 kg/m heart rate: Baseline Heart Rate: 125 patient very difficult to keep on monitor due to body habitus Accelerations: present Director Stars Variability: moderate Decelerations: early Contraction frequency: Irregular minutes Presentation: Cephalic based on initial ultrasound done on admission Membranes: Intact Cervix: Dilation: 1 cm Effacement: 50% Station: High Consistency: firm Position: posterior Medications: Cytotec 25 mcg posterior vaginal vault # 2 ASSESSMENT & PLAN: 1. Intrauterine at 40 weeks and 4 days 2. Encounter for elective induction of labor 3. Second Cytotec placed posterior vaginal vault without any difficulty 4. Patient very difficult to keep her monitor due to body habitus will have to intermittently monitor. 5. Continue present management Avery Soto DO, MBA, FACOOG December 11, 2020 3:04 PM * Avery Soto DO - 12/11/2020 10:41 AM EDT Images from the original note were not included. Department of Obstetrics and Gynecology Labor and Delivery OB Hospitalist Progress Note 20 y.o. @ 40w4d Patient admitted for IOL SUBJECTIVE: Called to evaluate patient for placement of cytotec OBJECTIVE: Vitals: BP (!) 100/57 Pulse 67 Temp 97.8 F (36.6 C) (Oral) Resp 20 Ht 5' 5.5 (1.664 m) Wt (!) 317 lb (143.8 kg) BMI 51.95 kg/m heart rate: Baseline Heart Rate: 130 Accelerations: present Director Stars Variability: moderate Decelerations: absent Contraction frequency: ocassional minutes Presentation: Cephalic via US on initial exam Membranes: Intact Cervix: Dilation: 1 cm Effacement: 50% Station: -3 Consistency: firm Position: posterior Medications: General Labs: Admission on 12/11/2020 Component Date Value Ref Range Status WBC 12/11/2020 11.4* 3.6 - 10.7 10*3/uL Final RBC 12/11/2020 4.15 3.80 - 5.20 10*6/uL Final Hemoglobin 12/11/2020 11.4* 11.7 - 16.0 g/dL Final Hematocrit 12/11/2020 35.2 35.0 - 47.0 % Final MCV 12/11/2020 84.6 79.0 - 98.0 fL Final MCH 12/11/2020 27.5 26.0 - 34.0 pg Final MCHC 12/11/2020 32.5 32.0 - 36.0 % Final RDW 12/11/2020 14.6* 11.5 - 14.5 % Final Platelets 12/11/2020 319 140 - 440 10*3/uL Final MPV 12/11/2020 8.6 7.4 - 10.4 fL Final ABO Grouping 12/11/2020 B NA Final Rh Type 12/11/2020 POS NA Final Antibody Screen 12/11/2020 NEG NA Final ASSESSMENT & PLAN: 1) IUP at 40w4d 2) Encounter for elective induction of labor 3) Obesity BMI 51.95 4) Cytotec 25 mcg placed in the posterior vaginal vault without difficulty Avery Soto DO, LALA, FACOOG December 11, 2020 10:41 AM documented in this [facility] Work Phone: 1(870) 846-501810-11-2021 Hospital Discharge instructions* Instructions* Ernestine Hart, PAUL - 12/16/2020 After Your Delivery Discharge Instructions [facility] Giovanni Stallings and Jovanni [phone] Call the Physician with any signs and symptoms: Warning signs regarding incision: Popping of stitches or kelli Foul smelling discharge or pus More redness or streaks around incision than before Incision care: Keep incision dry and covered (if necessary) No tub baths until OK'd by your Physician You may use cold compresses on incision site After your delivery - signs and symptoms to watch for: Fever - Oral temperature greater than 100.4 degrees Fahrenheit Foul-smelling vaginal discharge Headache unrelieved by pain meds Difficulty urinating Breasts reddened, hard, hot to the touch Nipple discharge which is foul-smelling or contains pus Increased pain at the site of the surgical incision Difficulty breathing with or without chest pain New calf pain especially if only on one side Sudden, continuing increased vaginal bleeding with or without clots Bleeding may stop in 2-4 wks but can persist for 4-6 wks; 10% still bleed to 12 wks Unrelieved feelings of: Inability to cope Sadness Anxiety Lack of interest in baby Insomnia Crying What to do at home: See patient education handouts for full information Resume activity gradually Don't lift anything heavier than baby and carrier until OK'd by your Physician No sex until OK'd by your Physician or 6 wks Take care of yourself by sleeping/resting as much as possible Eat regular nutritious meals Let someone else care for you, your baby, and housework as much as possible Take pain medication as prescribed whenever you need them Wear compression stockings if prescribed To avoid/relieve constipation take stool softeners if advised Drink lots of water/fruit juices Increase fiber in your diet Breast care: Wear support bra 28/09; use lanolin ointment/cream as needed Do not drive until you are not taking narcotics (Percocet, Roxicet or Vicodin) and you can brake comfortably. Return to Office in 3-4 weeks. Discharge instructions reveiwed. Ernestine Hart RN 12/16/2020 3:34 PM documented in this [facility] Work Phone: Evaluation + Plan note No data available for this section [facility] Evaluation note* Diagnosis S/P section- Primary Other postprocedural status Post term over 40 weeks Post term , antepartum condition or complication Encounter for elective induction of labor Obesity complicating peripregnancy, antepartum, third trimester Post-dates Post term , unspecified episode of care documented in this encounter [facility] Work Phone: Evaluation noteNo assessment information available [facility] Work Phone: Evaluation note* Diagnosis Abdominal pain, right lower quadrant- Primary documented in this encounter [facility] note* Diagnosis Onset Date Resolution Status Acute appendicitis acute [facility] Work Phone: Evaluation note* Diagnosis Aftercare- Primary Unspecified aftercare documented in this encounter [facility] note* Diagnosis Morbid obesity with BMI of 50.0-59.9, adult (HCC)- Primary documented in this encounter [facility] note* Diagnosis Morbid obesity with BMI of 50.0-59.9, adult (HCC)- Primary documented in this encounter [facility] note* Diagnosis Morbid obesity with BMI of 50.0-59.9, adult (HCC) documented in this encounter [facility] note* Diagnosis Morbid obesity with BMI of 50.0-59.9, adult (HCC) documented in this encounter [facility] note* Diagnosis Morbid obesity with BMI of 50.0-59.9, adult (HCC) documented in this encounter [facility] note* Diagnosis BMI 50.0-59.9, adult (HCC)- Primary documented in this encounter [facility] note* Diagnosis GERD without esophagitis- Primary Esophageal reflux Morbid obesity with BMI of 50.0-59.9, adult (HCC) Tobacco abuse Tobacco use disorder documented in this encounter [facility] Discharge instructions Additional Instructions [facility]charge Instructions * Instructions* Radha Mcgee APRN - HEAD DOFFER - 11/12/2018 In the medical field, there is always a level of diagnostic uncertainty, even if this uncertainty is low. For this reason, it is important to immediately return to the emergency department if you have any new symptoms, worsening symptoms, change of symptoms, or if you have any other concerns. We would be happy to re- evaluate you. Otherwise, please take your medications as prescribed and follow-upas recommended. * Attachments The following attachments cannot be sent through Care Everywhere. * Ankle Sprain (Thai) * RICE: General Info (Thai) * Ankle Sprain: Rehab Exercises (Thai) documented in this encounter Assessments Diagnosis Sprain of left ankle, unspecified ligament, initial encounter- Primary Advance Directives No Advanced Directives Records FoundDocuments on File Type Date Recorded Patient Medical Device Expl anation Advance Directives and Living Will Power of Basketball Player Documents on File Type Date Recorded Patient Medical Device Expl anation ACP-Advance Directive ACP-Power of Basketball Player Latest Code Status on File Code Status Date Activated Date Inactivated Comments Full Code 12/13/2020 9:42 AM Full Code 12/13/2020 7:30 AM 12/13/2020 9:42 AM Full Code 12/11/2020 9:07 AM 12/13/2020 7:29 AM Advance Directive Response Recorded Date/ Time Living Will No March 23 9:25am Power of Basketball Player No March 23, 2022 9:25am Summary Purpose Family History No Family History Records FoundNo Family History Records FoundNo Family History Records FoundNo Family History Records FoundNo Family History Records FoundNo Family History Records Found Chief Complaint and Reason for Visit Chief Complaint ABD PAIN Chief Complaint ABD PAIN Reason for Visit Acute appendicitis Additional Source Comments Reason for Visit (unrecogniz ed section and content) Reason Comments Ankle Pain Reason Comments Scheduled Induction Reason Comments Abdominal Pain Lower right quadrant , diarrhea x 1 day Reason Comments Post Op Follow Up Follow [facility] Reason Comments Surgical Consult New surg Specialty Diagnoses / Procedures Referred By [place] t Referred To Contact Bariatrics Diagnoses Morbid (severe) obesity due to excess calories (HCC) Procedures Eval & Treat [facility] - [address] [place] [address] Phone: tel: fax: Referral ID Status Reason Start Date Expiration Date V isits Requested Visits Authorized [id number] Pending Review 01/25/2024 07/23/2024 1 1 Reason Onset Date Comments Other 02/07/2024 Financial File 2 024 Surgery Scheduling 02/07/2024 Initial sched uling-orders placed Reason Comments Nutrition Counseling BNA INITIAL Reason Onset Date Comments Cancelled Appointment 04/17/2024 Reschedule appointment 04/18/24 Reason Comments Weight Loss D/E / Reason Onset Date Comments Appointment 09/01/2024 Ordered Prescriptions (unrec ognized section and content) Prescription Sig Dispensed Refills Start Date End Da te ibuprofen (ADVIL;MOTRIN) 600 MG tablet Take 1 tablet by mouth every 6 hours as needed for Pain 120 tablet 3 12/16/2020 oxyCODONE (ROXICODONE) 5 MG immediate release tabletIndications:S/P section Take 1 tablet by mouth every 6 hours as needed for Pain for up to 7 days. 20 tablet 0 12/16/2020 12/23/2020 Scheduled Active and Recently Administ ered Medications (unrecognized section and content) Medication Order 12/14/2020 12/15/2020 12/16/2020 acetaminophen (TYLENOL) tablet 1,000 mg 1,000 mg, Oral, ONCE, On Wed12/13/20 at 0745, For 1 dose, Maximum dose of acetaminophen is 4000 mg from all sources in 24 hours. Do not administer if patient has taken tylenol <4 hours earlier. Give 650 mg dose if patient is >85 years old. Do not give if contraindicated ie. patient has active liver disease or cirrhosis., Pre-op (day of surgery) famotidine (PEPCID) injection 20 mg 20 mg, IntraVENous, ONCE, On Wed12/13/20 at 0745, For 1 dose, Administer over 2 minutes., Pre-op (day of surgery) ferrous sulfate (IRON 325) tablet 325 mg 325 mg, Oral, 2 TIMES DAILY WITH MEALS, First dose on Wed12/13/20 at 1000, Start if Hgb less than 10., 0800 (Given - Provider: Elsi Avendano RN)1755 (Given - Provider: Elsi Avendano RN) 0808 (Given - Provider: Elsi Avendano RN)1700 (Due) 0751 (Given - Provider: Ernestine Hart RN)1702 (Held - Provider: Ernestine Hart RN - Reason: Other - Comment: Pt eating dinner after discharge today) ibuprofen (ADVIL;MOTRIN) tablet 600 mg 600 mg, Oral, EVERY 6 HOURS, First dose on Wed12/13/20 at 1000, Do not crush or chew., 0601 (Not Given - Provider: Cynthia Cronin RN - Reason: Other - Comment: pt got toradol)1151 (Given - Provider: Elsi Avendano RN)1755 (Given - Provider: Elsi Avendano RN) 0005 (Given - Provider: Kenneth Nesbitt, RN)0807 (Given - Provider: Elsi Avendano RN)1200 (Not Given - Provider: Elsi Avendano RN - Reason: Order parameters not met)1507 (Given - Provider: Elsi Avendano RN)2253 (Given - Provider: Reyna Guillen RN) 0400 (Not Given - Provider: Ernestine Hart RN - Reason: Patient/family refused)0752 (Given - Provider: Ernestine Hart RN)1358 (Given - Provider: Ernestine Hart RN)1999 (Due - Provider: Ernestine Hart RN)2200 (Due) ketorolac (TORADOL) injection 30 mg () 30 mg, IntraVENous, EVERY 6 HOURS, First dose on Wed12/13/20 at 1000, For 1 day, Do not administer for more than 5 days. First dose should be administered 6 hours after anesthesia's administered dose in OR or PACU. Do NOT give with ibuprofen., 0553 (Given - Provider: Cynthia Cronin RN) measles, mumps & rubella vaccine (MMR) injection 0.5 mL 0.5 mL, SubCUTAneous, PRIOR TO DISCHARGE, Starting on Wed12/13/20 at 0942, For 1 dose, Administer if Rubella non-immune or equivocal, vitamin 27-1 MG tablet 1 tablet 1 tablet, Oral, DAILY, First dose on Wed12/13/20 at 1000, Begin when normal bowel activity resumes., 0800 (Given - Provider: Elsi Avendano RN) 0807 (Given - Provider: Elsi Avendano RN) 0751 (Given - Provider: Ernestine Hart RN) sodium chloride flush 0.9 % injection 10 mL (CANCELED) 10 mL, IntraVENous, EVERY 12 HOURS SCHEDULED (2 times per day), First dose on Wed12/13/20 at 1000, 1255 (Given - Provider: Elsi Avendano RN)1999 (Not Given - Provider: Kenneth Nesbitt RN - Reason: Loss of IV access) Rntwggi-Dufdnb-Bfxlg Pertussis (BOOSTRIX) injection 0.5 mL 0.5 mL, IntraMUSCular, PRIOR TO DISCHARGE, Starting on Wed12/13/20 at 0942, For 1 dose, If not previously administered during at 27-36 weeks as recommended by CDC., Continuous Medication Order 12/14/2020 12/15/2020 12/16/2020 oxytocin (PITOCIN) 10 unit bolus from the bag 500 mL (30 Units), IntraVENous, Administer over 75 Minutes, TITRATED, Starting on Wed12/13/20 at 0745, For Immediate Post Use Only. Give after delivery of placenta. Bag 1 of 2: Bolus for bag to infuse at 999 ml/hour for 15 minutes (15 units in 250cc). After initial bolus then decrease rate to 250cc/hr for 1 hour. Then discontinue., Multiphase Phase of Care oxytocin (PITOCIN) 30 units in 500 mL infusion 1 cindy-units/min (1 mL/hr), IntraVENous, at 1 mL/hr, CONTINUOUS, Starting on Wed12/11/20 at 0930, Begin infusion at 1 cindy-unit/min (1 cindy-unit per min = 1 mL per hour) and increase by 1 cindy-unit/min after 30 minutes. Then increase by 2 cindy-units/min as needed, no faster than every 30 minutes, until labor is achieved. Labor is defined as contractions every 2-3 minutes with cervical changes or Kenyon units (MVU) greater than 200 in a 10-minute window. Maximum infusion rate: 20 cindy-unit/min. Contact provider if maximum rate does not achieve desired response. Provider may order alternative titration goal or other clinically appropriate goal of titration rate (s). Smaller titration increments of 1 cindy-units/min, not faster than every 30 minutes, may be used when approaching therapeutic goal. IF PITOCIN IS STOPPED FOR ANY REASON, THEN IT MAY BE RESTARTED FOLLOWS: If after a 10-30 minute period of observation the heart rate pattern is Cat 1 and uterine contractions are inadequate (less than 200 montevideo units) then: A. If previous rate was discontinued greater than or equal to 30 minutes ago, then resume pitocin from the beginning of this order. B. If previous rate was discontinued less than 30 minutes ago,then resume pitocin at half of the previous rate., Labor and Delivery PRN Medication Order 12/14/2020 12/15/202012/16/2020 0.9 % sodium chloride infusion 25 mL, IntraVENous, at 100 mL/hr, PRN, If patient receiving piggyback infusions without ordered maintenance IV fluids or with frequent/long duration piggyback infusions, Starting on Wed12/11/20 at 0904, Administer at the same rate as the piggyback being infused., Labor and Delivery 0.9 % sodium chloride infusion 25 mL, IntraVENous, at 100 mL/hr, PRN, If patient receiving piggyback infusions without ordered maintenance IV fluids or with frequent/long duration piggyback infusions, Starting on Wed12/13/20 at 0729, Administer at the same rate as the piggyback being infused., Labor and Delivery (Signed and Held) 0.9 % sodium chloride infusion 25 mL, IntraVENous, at 100 mL/hr, PRN, If patient receiving piggyback infusions without ordered maintenance IV fluids or with frequent/long duration piggyback infusions, Starting on Wed12/13/20 at 0942, Administer at the same rate as the piggyback being infused., acetaminophen (TYLENOL) tablet 650 mg 650 mg, Oral, EVERY 4 HOURS PRN, Pain Mild (1-3), Fever, Fever >100.5 F (38 C), Starting on Wed12/11/20 at 0904, Maximum dose of acetaminophen is 4000 mg from all sources in 24 hours., Labor and Delivery acetaminophen (TYLENOL) tablet 650 mg 650 mg, Oral, EVERY 6 HOURS PRN, Pain Mild (1-3), Starting on Wed12/13/20 at 0942, Maximum dose of acetaminophen is 4000 mg from all sources in 24 hours., 0552 (Given - Provider: Cynthia Cronin RN)1152 (Given - Provider: Elsi Avendano, PAUL)1754 (Given - Provider: Elsi Avendano, PAUL) 0005 (Given - Provider: Kenneth Nesbitt RN)0807 (Given - Provider: Elsi Avendano RN)1506 (Given - Provider: Elsi Avendano RN)2253 (Given - Provider: Reyna Guillen, PAUL) 0751 (Given - Provider: Ernestine Hart, PAUL)1357 (Given - Provider: Ernestine Hart RN) benzocaine-benzethonium (DERMOPLAST) 20-0.2 % spray Topical, PRN, Pain, Starting on Wed12/11/20 at 0904, Apply to perineal area. Patient is capable and may self administer at bedside., Post Delivery diphenhydrAMINE (BENADRYL) injection 12.5 mg 12.5 mg, IntraVENous, EVERY 4 HOURS PRN, Itching, Starting on Wed12/13/20 at 0942, May administer a second dose of 12.5mg of diphenhydramine 10 minutes after first dose if itching not relieved., diphenhydrAMINE (BENADRYL) injection 25 mg 25 mg, IntraVENous, EVERY 6 HOURS PRN, Itching, Hives, Starting on Wed12/13/20 at 0942, docusate sodium (COLACE) capsule 100 mg 100 mg, Oral, 2 TIMES DAILY PRN, Constipation, Starting on Wed12/13/20 at 0942, Do not crush or break., 1217 (Given - Provider: Elsi Avendano RN) 0751 (Given - Provider: Ernestine Hart RN) HYDROmorphone (DILAUDID) injection 0.25 mg(Linked Group 1) 0.25 mg, IntraVENous, EVERY 3 HOURS PRN, Pain Moderate (4-6), Starting on Wed12/13/20 at 0942, If oral and IV narcotics ordered, use oral first and only use IV if oral is ineffective or cannot take oral. Do Not give oral and IV within 1 hour of each other unless specifically ordered., HYDROmorphone (DILAUDID) injection 0.5 mg(Linked Group 1) 0.5 mg, IntraVENous, EVERY 3 HOURS PRN, Pain Severe (7-10), Starting on Wed12/13/20 at 0942, If oral and IV narcotics ordered, use oral first and only use IV if oral is ineffective or cannot take oral. Do Not give oral and IV within 1 hour of each other unless specifically ordered., lansinoh lanolin ointment Topical, EVERY 1 HOUR PRN, Dry Skin, nipple discomfort, Starting on Wed12/13/20 at 0942, 1301 (Given - Provider: Ernestine Hart RN) nalbuphine (NUBAIN) injection 5 mg 5 mg, IntraVENous, EVERY 4 HOURS PRN, Other, Itching not relieved by benadryl, Starting on Wed12/13/20 at 0942, Do not administer to patients with current narcotic addiction., naloxone (NARCAN) injection 0.4 mg 0.4 mg, IntraVENous, PRN, Opioid Reversal, Starting on Wed12/13/20 at 0942, PRN if respiratory rate is < 6/min or patient is difficult to arouse. Mix 9 mL of sodium chloride 0.9% with 0.4 mg (1 mL) of naloxone (NARCAN) in 10 mL syringe. (Note: dilution is 0.04 mg/mL) Give 0.08 mg (2 mL of special dilution), slow IV push, repeat up to 0.4 mg (10 mL) or until patient is responsive to physical stimulation and is able to take deep breaths. Continue to observe, if no response within 3 minutes of administration of 0.4 mg (10 mL) total, repeat dose (0.4 mg as administered previously) and notify physician STAT., ondansetron (ZOFRAN) injection 4 mg 4 mg, IntraVENous, EVERY 6 HOURS PRN, Nausea, Starting on Wed12/11/20 at 0904, Labor and Delivery ondansetron (ZOFRAN) injection 4 mg 4 mg, IntraVENous, EVERY 6 HOURS PRN, Nausea, Starting on Wed12/13/20 at 0942, oxyCODONE (ROXICODONE) immediate release tablet 10 mg(Linked Group 2) 10 mg, Oral, EVERY 4 HOURS PRN, Pain Severe (7-10), Starting on Wed12/13/20 at 0942, 1252 (Given - Provider: Elsi Avendano RN)1758 (Given - Provider: Elsi Avendano RN) 0808 (Given - Provider: Elsi Avendano RN)1509 (Given - Provider: Elsi Avendano RN)2253 (Given - Provider: Reyna Guillen RN) 0751 (Given - Provider: Ernestine Hart RN)1301 (Given - Provider: Ernestine Hart RN) oxyCODONE (ROXICODONE) immediate release tablet 5 mg(Linked Group 2) 5 mg, Oral, EVERY 4 HOURS PRN, Pain Moderate (4-6), Starting on Wed12/13/20 at 0942, 1252 (See Alternative - Provider: Elsi Avendano, RN)1758 (See Alternative - Provider: Elsi Avendano, RN) 0808 (See Alternative - Provider: Elsi Avendano, RN)1509 (See Alternative - Provider: Elsi Avendano, RN)2253 (See Alternative - Provider: Reyna Guillen, RN) 0751 (See Alternative - Provider: Ernestine Hart, RN)1301 (See Alternative - Provider: Ernestine Hart, RN) oxytocin (PITOCIN) 10 unit bolus from the bag 500 mL (30 Units), IntraVENous, Administer over 75 Minutes, PRN, Bleeding, Starting on Wed12/13/20 at 0729, For 1 dose, For immediate post- use ONLY after delivery of baby/ excessive bleeding/ uterine atony. Bag 1 of 2: Bolus for bag to infuse at 999 ml/hour for 15 minutes (15 units in 250ml). After initial bolus then decrease rate to 250cc/hr (additional 15 units) for 1 hour. Then discontinue, Multiphase Phase of Care oxytocin (PITOCIN) 30 units in 500 mL infusion 125 cindy-units/min (125 mL/hr), IntraVENous, at 125 mL/hr, CONTINUOUS PRN, Bleeding, Starting on Wed12/13/20 at 0729, For 4 hours, For Immediate Post Use Only. Give after delivery of placenta and initial 30 unit bolus. Bag 2 of 2: 125cc/hr (125 mu/min) for an additional infusion of 500cc (30 units)., Multiphase Phase of Care simethicone (MYLICON) chewable tablet 80 mg 80 mg, Oral, EVERY 6 HOURS PRN, Cramping, Flatulence, Starting on Wed12/13/20 at 0942, sodium chloride flush 0.9 % injection 10 mL 10 mL, IntraVENous, PRN, Line Care, After every IV line use, Starting on Wed12/13/20 at 0729, Labor and Delivery (Signed and Held) sodium chloride flush 0.9 % injection 10 mL 10 mL, IntraVENous, PRN, Line Care, Starting on Wed12/13/20 at 0942, After every IV line use, sodium chloride flush 0.9 % injection 5-40 mL 5-40 mL, IntraVENous, PRN, Line Care, Starting on Wed12/11/20 at 0904, For Line Patency: Peripheral IV = 5 mL; Midline or Central Line = 10 mL/lumen. If following IV push medication, administer flush at same rate as the IV push. Flush volume is determined by type of infusion therapy being given. For non-viscous solutions use: Peripheral IV = 5 mL Midline or Central Line = 10 mL/lumen For viscous solutions (i.e. blood components, parenteral nutrition, contrast media, or after obtaining blood sample) use: Peripheral IV = 10 mL Midline or Central Line = 20 mL/lumen, Labor and Delivery Linked Groups Order Group 1: HYDROmorphone (DILAUDID) injection 0.25 mgJump to med 0.25 mg, IntraVENous, EVERY 3 HOURS PRN, Pain Moderate (4-6), Starting on Wed12/13/20 at 0942
If oral and IV narcotics ordered, use oral first and only use IV if oral is ineffective or cannot take oral. Do Not give oral and IV within 1 hour of each other unless specifically ordered.
Or HYDROmorphone (DILAUDID) injection 0.5 mgJump to med 0.5 mg, IntraVENous, EVERY 3 HOURS PRN, Pain Severe (7-10), Starting on Wed12/13/20 at 0942
If oral and IV narcotics ordered, use oral first and only use IV if oral is ineffective or cannot take oral. Do Not give oral and IV within 1 hour of each other unless specifically ordered.
Group 2: oxyCODONE (ROXICODONE) immediate release tablet 5 mgJump to med 5 mg, Oral, EVERY 4 HOURS PRN, Pain Moderate (4-6), Starting on Wed12/13/20 at 0942, Or oxyCODONE (ROXICODONE) immediate release tablet 10 mgJump to med 10 mg, Oral, EVERY 4 HOURS PRN, Pain Severe (7-10), Starting on Wed12/13/20 at 0942, INFORMATION SOURCE (unrecogn ized section and content) DATE CREATED AUTHOR 01/12/2021 [facility] DATE CREATED AUTHOR AUTHOR'S ORGANIZ ATION 02/28/[address] [facility] ([place]) DATE CREATED AUTHOR AUTHOR'S ORGANIZ ATION 03/23/2022 [facility] DATE CREATED AUTHOR AUTHOR'S ORGANIZ ATION 03/31/2022 [facility] DATE CREATED AUTHOR AUTHOR'S ORGANIZ ATION 04/19/2023 [facility] DATE CREATED AUTHOR AUTHOR'S ORGANIZ ATION 09/02/2024 [facility] Care Team (unrecognized sect ion and content) Care Team Personnel Name: PHYSICIAN, NONE Position: Physician Member Role: Primary Care Physician Name: SINGH MERA DO Position: ED Physician Member Role: Attending Physician Address: Address: [address] [place] [phone]- Care Teams (unrecognized sec tion and content) Team Status: Active Member Role Status Dates No Primary Care Physician Primary Care Provider Active Team Status: Inactive Member Role Status Dates Dr. Jason Molina DO Emergency Provider Active No Primary Care Physician Primary Care Provider Active Team Status: Inactive Member Role Status Dates Dr. Jason Molina DO Emergency Provider Active No Primary Care Physician Primary Care Provider Active Dr. Saurabh Solomon MD Attending Provider Active Cryptological Technician Relationship Specialty Start Date End Date Eugene Pires DO [address] [place] [address] PCP - General 11/12/18 Cassandra Voss DO [address] [place] [address] Surgeon General Surgery 02/02/24 Cryptological Technician Relationship Specialty Start Date End Date Eugene Pires DO [address] [place] [address] PCP - General 11/12/18 Cassandra Voss DO [address] [place] [address] Surgeon General Surgery 02/02/24 Cryptological Technician Relationship Specialty Start Date End Date Eugene Pires DO [address] [place] [address] PCP - General 11/12/18 Cassandra Voss DO [address] [place] [address] Surgeon General Surgery 02/02/24 Cryptological Technician Relationship Specialty Start Date End Date Eugene Pires DO [address] [place] [address] PCP - General 11/12/18 Cassandra Voss DO [address] [place] [address] Surgeon General Surgery 02/02/24 Cryptological Technician Relationship Specialty Start Date End Date Eugene Pires DO [address] [place] [address] PCP - General 11/12/18 Cassandra Voss DO [address] [place] [address] Surgeon General Surgery 02/02/24 Cryptological Technician Relationship Specialty Start Date End Date Eugene Pires DO [address] [place] [address] PCP - General 11/12/18 Cassandra Voss DO [address] [place] [address] Surgeon General Surgery 02/02/24 Aria Moon APRN - HEAD DOFFER [address] [place] [address] Nurse Practitioner Nurse Practitioner 05/09/24 Cryptological Technician Relationship Specialty Start Date End Date Eugene Pires DO [address] [place] [address] PCP - General 11/12/18 Cassandra Voss DO [address] [place] [address] Surgeon General Surgery 02/02/24 Aria Moon APRN - HEAD DOFFER [address] [place] [address] Nurse Practitioner Nurse Practitioner 05/09/24 Cryptological Technician Relationship Specialty Start Date End Date JaceCassandra ferreira DO [address] [place], [place] [id number] Surgeon General Surgery 02/02/24 Aria Moon APRN - CNP [address] [place] [address] Nurse Practitioner Nurse Practitioner 05/09/24 Cryptological Technician Relationship Specialty Start Date End Date Nadeem Cassandra [address] [place] [address] Surgeon General Surgery 02/02/24 Aria Moon APRN - CNP [address] [place] [address] Nurse Practitioner Nurse Practitioner 05/09/24 Goals (unrecognized section and content) Goals may be documented in a n alternate section Source Comments (unrecognize d section and content) In the event this informatio n is protected by the Federal Confidentiality of Alcohol and Drug Abuse Patient Records regulations: The Federal rules restrict any use of the information to criminally investigate or prosecute any alcohol or drug abuse patient.[facility] the event this information is protected by the Federal Confidentiality of Alcohol and Drug Abuse Patient Records regulations: The Federal rules restrict any use of the information to criminally investigate or prosecute any alcohol or drug abuse patient.[facility] the event this information is protected by the Federal Confidentiality of Alcohol and Drug Abuse Patient Records regulations: The Federal rules restrict any use of the information to criminally investigate or prosecute any alcohol or drug abuse patient.[facility] FOR RECORDS PERTAINING TO PATIENTS WHO ARE OR HAVE BEEN ENROLLED IN A CHEMICAL DEPENDENCY/SUBSTANCEABUSE PROGRAM, SOME INFORMATION MAY BE OMITTED. This clinical summary was aggregated from multiple sources. Caution should be exercised in using it in the provision of clinical care. This summary normalizes information from multiple sources, and as a consequence, information in this document may materially change the coding, format and clinical context of patient data. In addition, data may be omitted in some cases. CLINICAL DECISIONS SHOULD BE BASED ON THE PRIMARY CLINICAL RECORDS. [facility] [employer] [facility]. provides no warranty or guarantee of the accuracy or completeness of information in this document.
[2025-02-01 13:30] LABS: Hematocrit 38.2 % (37-47); Hemoglobin 11.9 g/dL (12.0-15.0); Immature Granulocytes Count 0.030 X10^3/uL (0.0-0.0); Mean Corp Hgb Conc 31.2 g/dL (32-36); Mean Corpuscular Volume 86.6 fL (81-99); Mean Platelet Vol. 9.8 fl (6.2-12.0); NRBC Flagged by Analyzer 0 % (0-5); Platelet Count 282 K/mm3 (150-450); RBC Distribution Width CV 13.8 % (11.6-14.6); RBC Distribution Width SD 43.8 fl (35.1-43.9); Red Blood Count 4.41 M/mm3 (4.2-5.4); White Blood Count 7.5 K/mm3 (4.4-11.0)
[2025-02-01 13:39] LABS: Internal QC Validated? YES +Cl - CLEAR BKGD; Pregnancy, Serum, hCG Quali. NEGATIVE Negative; Record Kit Lot#, Serum Preg. 980607
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
[2025-02-01 13:54] LABS: AST(SGOT) 24 U/L (<=31); Alanine Aminotransfer ALT/SGPT 22 U/L (<=34); Albumin, Serum 4.2 g/dL (3.5-5.0); Alkaline Phosphatase 72 U/L (35-104); Anion Gap 10 (5-15); BUN 14 mg/dL (4-19); BUN/Creat Ratio 18.5 RATIO (10-20); Calcium,Total 9.0 mg/dL (7.6-11.0); Carbon Dioxide 23.3 mmol/L (21.0-32.0); Chloride 105 mmol/L (98-108); Estimated Creatinine Clearance 170.67 ml/min (50-250); Globulin 2.9 g/dL (2.2-4.2); Glucose 97 mg/dL (70-99); Potassium 4.1 mmol/L (3.3-5.1)
[2025-02-01 15:00] VITALS: BP 138/63; PULSE 68; RESP 16; O2SAT 93
--- NOTE | 2025-02-01 16:15 | CT_ITS ---
PROCEDURE: CTA NECK W/WO CONTRAST 02/01/2025 REASON FOR EXAM: STRANGULATION TECHNIQUE: Procedure Code: CTCTANEWW Modality: CT Procedure: CTA NECK W/WO CONTRAST Multiplanar Sagittal and Coronal images were obtained. 3D post processing was performed. CONTRAST: Isovue 370 VOLUME: 75 mL One or more dose reduction techniques were used (e.g., Automated exposure control, adjustment of the mA and/or kV according to patient size, use of iterative reconstruction technique). RADIATION DOSE SUMMARY: DLP: 569.88 mGycm COMPARISON: Earlier same day. FINDINGS: Conventional aortic arch branching. Bilateral cervical carotid and codominant vertebral arteries are patent, normal in course and caliber. No aneurysm, dissection, or acute injury. Partially imaged major intracranial arterial vessels are unremarkable. No other significant abnormality appreciated within the neck soft tissues. Visualized osseous structures are intact and within normal limits. CT/CTA Neck W/WO Contrast IMPRESSION: No acute abnormality. Normal CTA neck. Reading Location: [id number]
[2025-02-01 18:12] VITALS: BP 138/63; PULSE 68; RESP 16; TEMP 36.7; O2SAT 93
== END 2025-02-01 17:55 | disposition home or self-care (01) ==
PROVIDERS: Emergency Provider Emergency Medicine; Visit Provider Emergency Medicine
DX: T71.193A Asphyxiation due to mechanical threat to breathing due to other causes, assault, initial encounter (principal); S81.822A Laceration with foreign body, left lower leg, initial encounter; R51.9 Headache, unspecified; W25.XXXA Contact with sharp glass, initial encounter; F90.9 Attention-deficit hyperactivity disorder, unspecified type
CPT/HCPCS: 70450; 70498; 80053; 84703; 85025; 93005; 99285; Q9967; A4216